=== PATIENT | female | born 1940 | race Caucasian/White ===

== ENCOUNTER 2016-06-10 17:08 | Inpatient (IN) | payer MEDICARE ==
[2016-06-10 18:16] LABS: ABSOLUTE EOSINOPHILS # (AUTO) 0.1 10^3/uL (0.0-0.6); ABSOLUTE LYMPHOCYTES (AUTO) 0.9 10^3/uL (0.5-4.7); ABSOLUTE MONOCYTES (AUTO) 0.8 10^3/uL (0.1-1.4); ABSOLUTE NEUT (AUTO) 15.5 10^3/uL (1.7-8.2); BASOPHILS % (AUTO) 0.2 % (0-2); EOSINOPHILS % (AUTO) 0.5 % (0-6); HEMATOCRIT 44.6 % (36.0-47.0); HEMOGLOBIN 14.5 g/dL (12.0-15.5); HGB HCT DIFFERENCE -1.1; LYMPHOCYTES % (AUTO) 5.3 % (13-45); MEAN CORPUSCULAR HEMOGLOBIN 26.6 pg (27.0-33.4); MEAN CORPUSCULAR HGB CONC 32.6 g/dL (32.0-36.0); MEAN CORPUSCULAR VOLUME 82 fl (80-97); MONOCYTES % (AUTO) 4.4 % (3-13); RED BLOOD COUNT 5.47 10^6/uL (3.72-5.28); RED CELL DISTRIBUTION WIDTH 16.1 % (11.5-14.0); SEGMENTED NEUTROPHILS % (AUTO) 89.6 % (42-78); WHITE BLOOD COUNT 17.3 10^3/uL (4.0-10.5)
[2016-06-10] MEDS ORDERED: NORMAL SALINE 1000 ML 1,000 ML IV ONE ×2 (18:17→19:44)
[2016-06-10 18:29] LABS: ADD ON TESTING BLD IN LAB ACKNOWLEDGE
[2016-06-10 18:37] LABS: ALANINE AMINOTRANSFERASE 58 U/L (9-52); ALBUMIN 3.7 g/dL (3.5-5.0); ALKALINE PHOSPHATASE 93 U/L (38-126); ANION GAP 13 (5-19); ASPARTATE AMINO TRANSFERASE 44 U/L (14-36); BLOOD UREA NITROGEN 44 mg/dL (7-20); CALCIUM 9.7 mg/dL (8.4-10.2); CARBON DIOXIDE 20 mmol/L (22-30); CHLORIDE 109 mmol/L (98-107); CREATININE RESULT 1.32 mg/dL (0.52-1.25); GLUCOSE 158 mg/dL (75-110); POTASSIUM 4.2 mmol/L (3.6-5.0); SODIUM 142.3 mmol/L (137-145); TOTAL PROTEIN 6.8 g/dL (6.3-8.2)
[2016-06-10 18:57] LABS: LIPASE 26.7 U/L (23-300)
[2016-06-10] MEDS ORDERED: ONDANSETRON HCL INJ/PF 4 MG/2 ML SDV IV ONE (19:44)
[2016-06-10] MEDS ORDERED: IPRATROPIUM/ALBUTEROL 0.5-2.5 MG/3 ML AMPUL NEB ONE (19:44)
[2016-06-10 22:13] LABS: APPEARANCE,URINE SLIGHTLY-CLOUDY; BILIRUBIN,URINE NEGATIVE (NEGATIVE); GLUCOSE, URINE NEGATIVE (NEGATIVE); KETONES,URINE NEGATIVE (NEGATIVE); LEUKOCYTE ESTERASE,URINE SMALL (NEGATIVE); NITRITE,URINE NEGATIVE (NEGATIVE); PROTEIN,URINE NEGATIVE (NEGATIVE); URINE SPECIFIC GRAVITY 1.029; UROBILINOGEN,URINE NEGATIVE mg/dL (<2.0)
[2016-06-10] MEDS ORDERED: METRONIDAZOLE 500 MG/NS RTU 100 ML IV ONE (23:29)
[2016-06-10] MEDS ORDERED: CEFTRIAXONE 1 GM/D5W RTU 50 ML IV ONE (23:33)
[2016-06-10] MEDS ORDERED: METHOCARBAMOL 500 MG TABLET PO PRN (23:33)
[2016-06-10] MEDS ORDERED: DEXTROSE 5%-NORMAL SALINE 1,000 ML IV ONE (23:34)
--- NOTE | 2016-06-10 23:34 | ER Document Report ---
ED General - General Chief Complaint: Nausea/Vomiting/Diarrhea Stated Complaint: NAUSEA/VOMITING Notes: Patient is a 76-year-old female past history of COPD, hypertension, who presents with 36 hours of persistent vomiting and diarrhea. Patient states that after getting home from visiting family in [place] where she ended up being hospitalized for 3 days for COPD exacerbation, she began having vomiting and diarrhea. She describes this as watery vomitus as well as watery diarrhea. States that she became so weak that she laid on her couch vomiting and soiling herself throughout the evening. States she was too weak to get up to call anybody. Her friend became concerned when the patient would not answer her phone today and eventually went to check on the patient. The patient was apparently able to crawl to the door to answer it and EMS was subsequently contacted. Patient states that she is normally functionally independent and able to take care of all her activities of daily living. At this point, she states she is too weak to even sit up in bed. Denies a history of similar symptoms in the past. States she was treated with antibiotics during her hospitalization well in [place]. She has not spoken her primary care physician regarding today's episode. Nothing improves or worsens or vomiting and diarrhea. TRAVEL OUTSIDE OF THE [place] IN LAST 30 DAYS: No - HPI Onset: Yesterday Onset/Duration: Gradual Quality of pain: Cramping Severity: Mild Pain Level: 2 Associated symptoms: Nausea, Vomiting Exacerbated by: Denies Relieved by: Denies Similar symptoms previously: No Recently seen / treated by doctor: No - Related Data Allergies/Adverse Reactions: ciprofloxacin [From Cipro] Allergy (Verified 06/10/16 18:25) Hives Past Medical History - General Information source: Patient - Social History Smoking Status: Former Smoker Frequency of alcohol use: None Drug Abuse: None Lives with: Alone Family History: Reviewed & Not Pertinent - Past Medical History Cardiac Medical History: Reports: Hx Hypercholesterolemia, Hx Heart Murmur Denies: Hx Heart Attack, Hx Hypertension Comment Only: Hx Congestive Heart Failure - She is being tested to see if she has this Pulmonary Medical History: Reports: Hx Asthma, Hx Bronchitis, Hx COPD, Hx Pneumonia Denies: Hx Tuberculosis Neurological Medical History: Denies: Hx Seizures Endocrine Medical History: Reports: Hx Diabetes Mellitus Type 2 - When necessary insulin for steroid induced hypoglycemia. GI Medical History: Reports: Hx Diverticulitis, Hx Gastroesophageal Reflux Disease, Hx Hiatal Hernia, Hx Irritable Bowel, Hx Ulcer Musculoskeltal Medical History: Reports Hx Arthritis Psychiatric Medical History: Denies: Hx Anxiety - Patient denies history of anxiety, Hx Depression Past Surgical History: Reports: Hx Abdominal Surgery - 3 ex-laops with lysis of adhesions for SBO, Hx Appendectomy, Hx Bowel Surgery, Hx Cholecystectomy, Hx Gynecologic Surgery - hysterectomy, Hx Hysterectomy, Hx Orthopedic Surgery - hand, Hx Tonsillectomy - Immunizations Hx Diphtheria, Pertussis, Tetanus Vaccination: Yes Hx Pneumococcal Vaccination: 06/08/08 Review of Systems - Review of Systems Notes: Constitutional: Negative for fever. HENT: Negative for sore throat. Eyes: Negative for visual changes. Cardiovascular: Negative for chest pain. Respiratory: Negative for shortness of breath. Gastrointestinal: Nausea for abdominal pain, vomiting and diarrhea Genitourinary: Negative for dysuria. Musculoskeletal: Negative for back pain. Skin: Negative for rash. Neurological: Negative for headaches, weakness or numbness. 10 point ROS negative except as marked above and in HPI. Physical Exam - Vital signs Vitals: Resp Pulse Ox 34 H 93 06/10/16 17:46 06/10/16 17:46 Interpretation: Tachycardic, Tachypneic Notes: PHYSICAL EXAMINATION: GENERAL: Mildly ill in appearance but in no acute distress. HEAD: Atraumatic, normocephalic. EYES: Pupils equal round and reactive to light, extraocular movements intact, sclera anicteric, conjunctiva are normal. ENT: nares patent, oropharynx clear without exudates. Dry mucous membranes. NECK: Normal range of motion, supple without lymphadenopathy LUNGS: Mild respiratory distress with a respiratory rate of 24. Expiratory wheezing bilaterally. HEART: Regular tachycardia without murmurs ABDOMEN: Soft, diffuse, mild tenderness without rebound or guarding., normoactive bowel sounds. No masses appreciated. EXTREMITIES: Normal range of motion, no pitting or edema. No cyanosis. NEUROLOGICAL: No focal neurological deficits. Moves all extremities spontaneously and on command. PSYCH: Normal mood, normal affect. SKIN: Warm, Dry, normal turgor, no rashes or lesions noted. Course - Re-evaluation Re-evalutation: 06/11/16 03:27 Patient presents tachycardic, soft pressures, and ill in appearance likely secondary to severe dehydration the setting of persistent vomiting and diarrhea. Patient was also noted to continue to have signs and symptoms consistent with a COPD exacerbation although she is ready been treated with a course of steroids and antibiotics. Her abdominal exam did show diffuse tenderness and given her history of multiple prior abdominal surgeries including abdominal strictures and bowel obstructions, CT abdomen and pelvis was obtained which did not show any acute pathology. Her laboratories demonstrate a leukocytosis but otherwise unremarkable. C. difficile pending. Patient remained weak and ill in appearance despite infusion 2 L of normal saline. Given her overall poor clinical assessment, I believe she needs to be admitted to the hospital for IV antibiotics, IV fluids, and clinical monitoring until she symptomatically improves. This case was discussed with Dr. Merrill who has accepted for admission. - Vital Signs Vital signs: Temp Pulse Resp BP Pulse Ox 20 98/58 L 95 06/11/16 00:00 06/10/16 20:01 06/11/16 00:00 - Laboratory Result Diagrams: 06/10/16 18:05 06/10/16 18:05 Laboratory results interpreted by me: 06/10/16 06/10/16 06/10/16 18:05 18:05 21:59 WBC 17.3 H RBC 5.47 H MCH 26.6 L RDW 16.1 H Seg Neutrophils % 89.6 H Lymphocytes % 5.3 L Absolute Neutrophils 15.5 H Chloride 109 H Carbon Dioxide 20 L BUN 44 H Creatinine 1.32 H Est GFR ( Amer) 47 L Est GFR (Non-Af Amer) 39 L Glucose 158 H AST 44 H ALT 58 H Creatine Kinase Urine Blood SMALL H Ur Leukocyte Esterase SMALL H 06/11/16 00:03 WBC RBC MCH RDW Seg Neutrophils % Lymphocytes % Absolute Neutrophils Chloride Carbon Dioxide BUN Creatinine Est GFR ( Amer) Est GFR (Non-Af Amer) Glucose AST ALT Creatine Kinase 332 H Urine Blood Ur Leukocyte Esterase - Diagnostic Test Radiology reviewed: Image reviewed, Reports reviewed Radiology results interpreted by me: 06/11/16 03:26 Chest x-ray: No acute infiltrate. - EKG Interpretation by Me Additional EKG results interpreted by me: 06/11/16 03:26 Sinus tachycardia. Rate [address] elevations or depressions. QTC 450 Discharge - Discharge Clinical Impression: Vomiting and diarrhea, Dehydration Acute and chronic respiratory failure ([id number]) Qualifiers: Respiratory failure complication: hypoxia Qualified Code(s): J96.21 - Acute and chronic respiratory failure with hypoxia Condition: Fair Disposition: ADMITTED INPATIENT Admitting Provider: Daren [facility] Admitted: Telemetry
[2016-06-10] MEDS ORDERED: ONDANSETRON HCL INJ/PF 4 MG/2 ML SDV IV PRN (23:37)
[2016-06-10] MEDS ORDERED: ACETAMINOPHEN 325 MG TABLET PO PRN (23:37)
[2016-06-10] MEDS ORDERED: MAG HYDROX/AL HYDROX/SIMETH SUSP 30 ML UDCUP PO PRN (23:37)
[2016-06-10] MEDS ORDERED: DEXTROSE 50%-WATER 25 GM/50 ML DISP.SYRIN IV PRN ×2 (23:42)
[2016-06-10] MEDS ORDERED: GLUCAGON,HUMAN RECOMB 1 MG INJ IM PRN (23:42)
[2016-06-10] MEDS ORDERED: DEXTROSE 40% GEL 15 GM TUBE PO PRN ×2 (23:42)
[2016-06-10] MEDS ORDERED: FLUTICASONE/SALMETEROL DISKUS 500-50 MCG/DOSE IH SCH (23:45)
[2016-06-10] MEDS ORDERED: NORMAL SALINE 1000 ML 1,000 ML IV SCH (23:45)
[2016-06-11 00:43] LABS: CREATINE KINASE MB 4.51 ng/mL (<4.55); TROPONIN I 0.013 ng/mL
--- NOTE | 2016-06-11 04:55 | PDOC H&P ---
History of Present Illness Admission Date/PCP: 06/10/16 23:37 MELINA ARMIJO Patient complains of: Nausea vomiting diarrhea History of Present Illness: BRIE MERCADO is a 76 year old female with a past medical history of diabetes and steroid dependent COPD [place] [facility] for COPD exacerbation 5 days ago developing abdominal pain nausea vomiting diarrhea over the last 4 hours. Patient is recently been on unknown antibiotics, denying chest pain or shortness of breath, in the emergency room she has a workup concerning for significant leukocytosis of 17,000 and prerenal azotemia. She started on Flagyl and concerned for C. difficile colitis referred to the hospitalist for admission. Severely debilitated and unable to ambulate or tolerate by mouth meds Past Medical History Cardiac Medical History: Reports: Hyperlipidema, Heart Murmur Denies: Myocardial Infarction, Hypertension Comment Only: Congestive Heart Failure - She is being tested to see if she has this Pulmonary Medical History: Reports: Asthma, Bronchitis, Chronic Obstructive Pulmonary Disease (COPD), Pneumonia Denies: Tuberculosis Neurological Medical History: Denies: Seizures Endocrine Medical History: Reports: Diabetes Mellitus Type 2 - When necessary insulin for steroid induced hypoglycemia. GI Medical History: Reports: Diverticulitis, Gastroesophageal Reflux Disease, Hiatal Hernia Musculoskeltal Medical History: Reports: Arthritis Psychiatric Medical History: Denies: Depression Hematology: Reports: Anemia Past Surgical History Past Surgical History: Reports: Appendectomy, Cholecystectomy, Hysterectomy, Orthopedic Surgery - hand, Tonsillectomy Social History Information Source: Patient Lives with: Alone Smoking Status: Former Smoker Frequency of Alcohol Use: None Hx Recreational Drug Use: No Drugs: None Hx Prescription Drug Abuse: No - Advance Directive Resuscitation Status: Full Code Family History Family History: COPD Parental Family History Reviewed: Yes Children Family History Reviewed: Yes Sibling(s) Family History Reviewed.: Yes Medication/Allergy Home Medications: Esomeprazole Magnesium [Nexium] 40 mg PO DAILY 04/07/12 Insulin Lispro [Humalog Insulin (Lispro) 100 unit/mL] 0 unit SUBCUT ACHSP PRN # 1 unit 04/03/13 Fluticasone/Salmeterol [Advair 500-50 Diskus 14 Dose/Diskus] 1 inh IH Q12H 04/10 Multivits-Min/Iron/FA/Lutein [Centrum Silver Women Tablet] 1 each PO DAILY 07/27 Albuterol Sulfate [Proair HFA] 1 - 2 puff IH QID PRN 09/14/14 Montelukast Sodium 10 mg PO DAILY 09/14/14 Simvastatin 40 mg PO QHS 09/14/14 Fluticasone Propionate [Flonase Nasal [place] 50 Mcg/[place] 16 gm] 1 spray NASL Q12 #1 spray.pump 09/16/14 Cyclosporine 0.05% Oph Emulsio [Restasis 0.05% Oph Emulsion Pf 0.4 ml] 1 drop OU DAILY 11/12/15 Prednisone [Deltasone 20 mg Tablet] 20 mg PO DAILY 11/20/15 Hydrocodone Bit/Acetaminophen [Hydrocodon-Acetaminophen 5-325] 1 each PO ASDIR PRN #10 tablet 11/27/15 Methocarbamol [Robaxin 500 Mg Tablet] 500 mg PO QID PRN #60 tablet 11/27/15 Allergies/Adverse Reactions: ciprofloxacin [From Cipro] Allergy (Verified 06/10/16 18:25) Hives Physical Exam Vital Signs: Temp Pulse Resp BP Pulse Ox 98.1 F 20 98/58 L 95 06/11/16 03:26 06/11/16 00:00 06/10/16 20:01 06/11/16 00:00 General appearance: PRESENT: cooperative, mild distress Head exam: PRESENT: atraumatic, normocephalic Eye exam: PRESENT: conjunctiva pink, EOMI, PERRLA. ABSENT: scleral icterus Ear exam: PRESENT: normal external ear exam Mouth exam: PRESENT: moist, tongue midline Neck exam: ABSENT: carotid bruit, JVD, lymphadenopathy, thyromegaly Respiratory exam: PRESENT: decreased breath sounds, prolonged expiratory phas. ABSENT: chest wall tenderness, crackles, rales, retraction, rhonchi, stridor, tachypnea Cardiovascular exam: PRESENT: RRR. ABSENT: diastolic murmur, rubs, systolic murmur Pulses: PRESENT: normal dorsalis pedis pul Vascular exam: PRESENT: normal capillary refill GI/Abdominal exam: PRESENT: distended, hyperactive bowel sounds, soft. ABSENT: firm, guarding, hernia, rigid Rectal exam: PRESENT: deferred Extremities exam: PRESENT: full ROM. ABSENT: calf tenderness, clubbing, pedal edema Neurological exam: PRESENT: alert, awake, oriented to person, oriented to place , oriented to time, oriented to situation, CN II-XII grossly intact. ABSENT: motor sensory deficit Psychiatric exam: PRESENT: appropriate affect, normal mood. ABSENT: homicidal ideation, suicidal ideation Skin exam: PRESENT: dry, intact, warm. ABSENT: cyanosis, rash Results Laboratory Results: 06/11/16 06/11/16 00:03 00:03 Creatine Kinase 332 H CK-MB (CK-2) 4.51 Troponin I 0.013 Impressions: Abdomen/Pelvis CT 06/10/16 19:44 IMPRESSION: NO SIGNIFICANT OR ACUTE FINDING IN THE ABDOMEN OR PELVIS ON CT SCAN WITH IV CONTRAST. Chest X-Ray 06/10/16 19:45 IMPRESSION: NO ACUTE RADIOGRAPHIC FINDING IN THE CHEST. Assessment & Plan - Diagnosis (1) Colitis Is this a current diagnosis for this admission?: YesPlan: Given recent admission with antibiotics for COPD exacerbation no significant concerned for C. difficile colitis given the rapid onset and marketed leukocytosis she started on Flagyl I will transition to vancomycin orally with symptomatic management and IV fluid challenge pending C. difficile tox screen and repeat CBC (2) Diabetes mellitus type 1 Is this a current diagnosis for this admission?: YesPlan: Insulin sliding scale every 6 hours (3) Chronic obstructive pulmonary disease (COPD) Is this a current diagnosis for this admission?: YesPlan: Albuterol Atrovent and incentive spirometry - Time Time Spent: 30 to 50 Minutes
[2016-06-11] MEDS: IPRATROPIUM/ALBUTEROL 0.5-2.5 MG/3 ML AMPUL NEB SCH ×4 (05:16→19:39)
[2016-06-11] MEDS: INSULIN LISPRO 100 UNIT/ML 3 ML VIAL SUBCUT PRN (05:21)
[2016-06-11] MEDS: VANCOMYCIN HCL INJ 500 MG VIAL PO SCH ×3 (06:23→18:06)
[2016-06-11] MEDS: LANSOPRAZOLE 30 MG TAB.RAP.DR PO SCH (06:24)
[2016-06-11] MEDS: HEPARIN SOD (PORCINE) 5,000 UNIT/ML 1 ML SYRINGE SUBCUT SCH ×3 (06:25→21:37)
[2016-06-11 07:22] LABS: ABSOLUTE EOSINOPHILS # (AUTO) 0.1 10^3/uL (0.0-0.6); ABSOLUTE MONOCYTES (AUTO) 0.6 10^3/uL (0.1-1.4); ABSOLUTE NEUT (AUTO) 6.8 10^3/uL (1.7-8.2); BASOPHILS % (AUTO) 0.1 % (0-2); HEMATOCRIT 32.2 % (36.0-47.0); HEMOGLOBIN 10.7 g/dL (12.0-15.5); HGB HCT DIFFERENCE -0.1; LYMPHOCYTES % (AUTO) 11.3 % (13-45); MEAN CORPUSCULAR HEMOGLOBIN 27.1 pg (27.0-33.4); MEAN CORPUSCULAR HGB CONC 33.2 g/dL (32.0-36.0); MEAN CORPUSCULAR VOLUME 82 fl (80-97); MONOCYTES % (AUTO) 7.2 % (3-13); RED BLOOD COUNT 3.93 10^6/uL (3.72-5.28); RED CELL DISTRIBUTION WIDTH 16.1 % (11.5-14.0); SEGMENTED NEUTROPHILS % (AUTO) 80.4 % (42-78); WHITE BLOOD COUNT 8.5 10^3/uL (4.0-10.5)
[2016-06-11 07:33] LABS: ANION GAP 10 (5-19); CALCIUM 8.2 mg/dL (8.4-10.2); CARBON DIOXIDE 18 mmol/L (22-30); CHLORIDE 112 mmol/L (98-107); CREATINE KINASE 342 U/L (30-135); CREATININE RESULT 0.86 mg/dL (0.52-1.25); GLUCOSE 112 mg/dL (75-110); POTASSIUM 3.5 mmol/L (3.6-5.0); SODIUM 140.4 mmol/L (137-145)
[2016-06-11 07:45] LABS: CREATINE KINASE MB 5.18 ng/mL (<4.55); TROPONIN I 0.012 ng/mL
[2016-06-11 08:05] LABS: BLOOD UREA NITROGEN 23 mg/dL (7-20)
[2016-06-11] MEDS: FLUTICASONE/SALMETEROL DISKUS 500-50 MCG/DOSE IH SCH ×2 (08:34→18:06)
[2016-06-11] MEDS ORDERED: MONTELUKAST SODIUM 10 MG TABLET PO SCH (10:00)
[2016-06-11] MEDS ORDERED: (PENDING PHARMACY ID) (Multivits-Min/Iron/Fa/Lutein [Centrum Silver Women Tablet] 1 EACH) PO SCH (10:00)
[2016-06-11] MEDS ORDERED: PREDNISONE 20 MG TABLET PO PRN (11:30)
[2016-06-11] MEDS ORDERED: TRAMADOL HCL 50 MG TABLET PO PRN (11:30)
[2016-06-11] MEDS ORDERED: POTASSIUM CHLORIDE 10 MEQ TABLET.SA PO ONE (11:30)
[2016-06-11] MEDS: FLUTICASONE NASAL SPRAY 50 MCG/SPRY 120 SPRAY/16 GM NASL SCH ×2 (11:50→21:36)
[2016-06-11] MEDS: DOCUSATE SODIUM 100 MG CAPSULE PO SCH ×2 (11:51→18:07)
[2016-06-11] MEDS: PREDNISONE 20 MG TABLET PO SCH (11:51)
[2016-06-11] MEDS: MULTIVITAMIN TABLET PO SCH (11:52)
[2016-06-11] MEDS: CYCLOSPORINE 0.05% OPH EMULSIO 0.4 ML DROPERETTE OU SCH (11:55)
[2016-06-11] MEDS ORDERED: BUDESONIDE/FORMOTEROL 160-4.5 MCG 60 PUFF/6 GM MDI IH ONE (13:00)
[2016-06-11 14:08] LABS: TROPONIN I < 0.012 ng/mL
[2016-06-11] MEDS ORDERED: (PENDING PHARMACY ID) (Rosuvastatin Calcium [Crestor 20 Mg Tablet] 20 MG) PO SCH (16:00)
--- NOTE | 2016-06-11 16:05 | EKG REPORT ---
SEVERITY:- ABNORMAL ECG - SINUS TACHYCARDIA LEFT ANTERIOR FASCICULAR BLOCK LVH WITH SECONDARY REPOLARIZATION ABNORMALITY : Confirmed by: Sandra Martino 11-Jun-2016 16:03:55
[2016-06-11] MEDS: ATORVASTATIN CALCIUM 10 MG TABLET PO SCH ×2 (16:34→21:37)
--- NOTE | 2016-06-11 16:40 | PDOC PROGRESS REPORT ---
Subjective Progress Note for:: 06/11/16 Subjective:: Patient seen on morning rounds. She is presently still in the ED waiting for a bed on telemetry. She denies any shortness of breath, chest pain or dyspnea. She continues to have productive cough. She denies any nausea, vomiting or abdominal pain at the present time. She did have one episode of diarrhea earlier. Otherwise review of systems are all negative Physical Exam Vital Signs: Temp Pulse Resp BP Pulse Ox 98.5 F 88 24 H 110/63 94 06/11/16 16:33 06/11/16 14:27 06/11/16 16:01 06/11/16 16:00 06/11/16 16:01 Intake & Output 06/10/16 06/11/16 06/12/16 06:59 06:59 06:59 Weight 65.771 kg General appearance: PRESENT: no acute distress, well-developed, well-nourished Head exam: PRESENT: atraumatic, normocephalic Eye exam: PRESENT: conjunctiva pink, EOMI, PERRLA. ABSENT: scleral icterus Ear exam: PRESENT: normal external ear exam Mouth exam: PRESENT: moist, tongue midline Neck exam: ABSENT: carotid bruit, JVD, lymphadenopathy, thyromegaly Respiratory exam: PRESENT: decreased breath sounds, rhonchi, symmetrical, unlabored Cardiovascular exam: PRESENT: bradycardia Pulses: PRESENT: normal dorsalis pedis pul Vascular exam: PRESENT: normal capillary refill GI/Abdominal exam: PRESENT: normal bowel sounds, soft. ABSENT: distended, guarding, mass, organolmegaly, rebound, tenderness Rectal exam: PRESENT: deferred Extremities exam: PRESENT: full ROM. ABSENT: calf tenderness, clubbing, pedal edema Neurological exam: PRESENT: alert, awake, oriented to person, oriented to place , oriented to time, oriented to situation, CN II-XII grossly intact. ABSENT: motor sensory deficit Psychiatric exam: PRESENT: appropriate affect, normal mood. ABSENT: homicidal ideation, suicidal ideation Skin exam: PRESENT: dry, intact, warm. ABSENT: cyanosis, rash Results Laboratory Results: 06/11/16 06:58 06/11/16 06:58 06/11/16 06/11/16 06:58 06:58 WBC 8.5 RBC 3.93 Hgb 10.7 L D Hct 32.2 L MCV 82 MCH 27.1 MCHC 33.2 RDW 16.1 H Plt Count 157 Seg Neutrophils % 80.4 H Lymphocytes % 11.3 L Monocytes % 7.2 Eosinophils % 1.0 Basophils % 0.1 Absolute Neutrophils 6.8 Absolute Lymphocytes 1.0 Absolute Monocytes 0.6 Absolute Eosinophils 0.1 Absolute Basophils 0.0 Sodium 140.4 Potassium 3.5 L Chloride 112 H Carbon Dioxide 18 L Anion Gap 10 BUN 23 H D Creatinine 0.86 Est GFR ( Amer) > 60 Est GFR (Non-Af Amer) > 60 Glucose 112 H Calcium 8.2 L 06/11/16 06/11/16 06/11/16 00:03 00:03 06:58 Creatine Kinase 332 H 342 H CK-MB (CK-2) 4.51 Troponin I 0.013 06/11/16 06/11/16 06/11/16 06:58 13:07 13:07 Creatine Kinase 809 H CK-MB (CK-2) 5.18 H 10.50 H Troponin I 0.012 < 0.012 Impressions: Abdomen/Pelvis CT 06/10/16 19:44 IMPRESSION: NO SIGNIFICANT OR ACUTE FINDING IN THE ABDOMEN OR PELVIS ON CT SCAN WITH IV CONTRAST. Chest X-Ray 06/10/16 19:45 IMPRESSION: NO ACUTE RADIOGRAPHIC FINDING IN THE CHEST. Assessment & Plan - Diagnosis (1) Dehydration Is this a current diagnosis for this admission?: YesPlan: Patient is being hydrated with IV fluid (2) Vomiting and diarrhea Is this a current diagnosis for this admission?: YesPlan: No further episodes of vomiting or diarrhea (3) Chronic obstructive pulmonary disease (COPD) Qualifiers: Emphysema type: unspecified Is this a current diagnosis for this admission?: YesPlan: Continue nebulizer treatments and steroids (4) Diabetes mellitus type 1 Is this a current diagnosis for this admission?: YesPlan: Continue current medications and sliding scale coverage - Time Time Spent with patient: 25-34 minutes Critical Time spent with patient: 15-24 minutes Medications reviewed and adjusted accordingly: Yes Anticipated discharge: Home
[2016-06-11] MEDS ORDERED: FAMOTIDINE PO SCH (18:00)
[2016-06-11] MEDS: MONTELUKAST SODIUM 10 MG TABLET PO SCH (18:07)
[2016-06-11] MEDS: BUDESONIDE/FORMOTEROL 160-4.5 MCG 60 PUFF/6 GM MDI IH SCH (21:36)
[2016-06-11] MEDS: ATORVASTATIN CALCIUM 40 MG TABLET PO SCH (21:37)
[2016-06-12] MEDS ORDERED: VANCOMYCIN HCL INJ 500 MG VIAL ONE ×2 (00:43→02:11)
[2016-06-12] MEDS: VANCOMYCIN HCL INJ 500 MG VIAL PO SCH ×2 (01:09→05:30)
[2016-06-12] MEDS: IPRATROPIUM/ALBUTEROL 0.5-2.5 MG/3 ML AMPUL NEB SCH ×4 (02:16→20:30)
[2016-06-12] MEDS: LANSOPRAZOLE 30 MG TAB.RAP.DR PO SCH (05:30)
[2016-06-12] MEDS: FLUTICASONE/SALMETEROL DISKUS 500-50 MCG/DOSE IH SCH ×2 (05:30→17:20)
[2016-06-12] MEDS: HEPARIN SOD (PORCINE) 5,000 UNIT/ML 1 ML SYRINGE SUBCUT SCH ×3 (05:30→22:24)
[2016-06-12] MEDS: BENZONATATE 100 MG CAPSULE PO PRN (05:30)
[2016-06-12 05:36] LABS: ABSOLUTE EOSINOPHILS # (AUTO) 0.1 10^3/uL (0.0-0.6); ABSOLUTE LYMPHOCYTES (AUTO) 1.1 10^3/uL (0.5-4.7); ABSOLUTE MONOCYTES (AUTO) 0.7 10^3/uL (0.1-1.4); ABSOLUTE NEUT (AUTO) 6.3 10^3/uL (1.7-8.2); BASOPHILS % (AUTO) 0.2 % (0-2); HEMATOCRIT 30.9 % (36.0-47.0); HEMOGLOBIN 10.2 g/dL (12.0-15.5); HGB HCT DIFFERENCE -0.3; LYMPHOCYTES % (AUTO) 13.2 % (13-45); MEAN CORPUSCULAR HEMOGLOBIN 27.1 pg (27.0-33.4); MEAN CORPUSCULAR HGB CONC 33.1 g/dL (32.0-36.0); MEAN CORPUSCULAR VOLUME 82 fl (80-97); MONOCYTES % (AUTO) 8.3 % (3-13); RED BLOOD COUNT 3.78 10^6/uL (3.72-5.28); RED CELL DISTRIBUTION WIDTH 15.7 % (11.5-14.0); SEGMENTED NEUTROPHILS % (AUTO) 77.3 % (42-78); WHITE BLOOD COUNT 8.2 10^3/uL (4.0-10.5)
[2016-06-12 05:52] LABS: ANION GAP 7 (5-19); BLOOD UREA NITROGEN 8 mg/dL (7-20); CALCIUM 9.6 mg/dL (8.4-10.2); CARBON DIOXIDE 21 mmol/L (22-30); CHLORIDE 109 mmol/L (98-107); CREATININE RESULT 0.75 mg/dL (0.52-1.25); GLUCOSE 97 mg/dL (75-110); POTASSIUM 4.3 mmol/L (3.6-5.0); SODIUM 137.2 mmol/L (137-145)
[2016-06-12] MEDS: ASPIRIN 81 MG TABLET, CHEWABLE PO SCH (10:41)
[2016-06-12] MEDS: PREDNISONE 20 MG TABLET PO SCH (10:41)
[2016-06-12] MEDS: MULTIVITAMIN TABLET PO SCH (10:42)
[2016-06-12] MEDS: FLUTICASONE NASAL SPRAY 50 MCG/SPRY 120 SPRAY/16 GM NASL SCH ×2 (10:42→22:23)
[2016-06-12] MEDS: BUDESONIDE/FORMOTEROL 160-4.5 MCG 60 PUFF/6 GM MDI IH SCH ×2 (10:42→22:23)
--- NOTE | 2016-06-12 11:54 | PDOC PROGRESS REPORT ---
Subjective Progress Note for:: 06/12/16 Subjective:: Patient seen on morning rounds. She is presently resting in bed. She had clear liquids for breakfast without any nausea or vomiting. She denies any shortness of breath, chest pain or dyspnea. She continues to have productive cough. She denies any nausea, vomiting or abdominal pain at the present time. No further diarrhea. C diff was negative. Otherwise review of systems are all negative Physical Exam Vital Signs: Temp Pulse Resp BP Pulse Ox 98.0 F 89 16 110/51 L 97 06/12/16 00:18 06/12/16 08:45 06/12/16 08:45 06/12/16 04:57 06/12/16 08:45 Intake & Output 06/11/16 06/12/16 06/13/16 06:59 06:59 06:59 Intake Total 200 Balance 200 Weight 65 kg General appearance: PRESENT: no acute distress, well-developed, well-nourished Head exam: PRESENT: atraumatic, normocephalic Eye exam: PRESENT: conjunctiva pink, EOMI, PERRLA. ABSENT: scleral icterus Ear exam: PRESENT: normal external ear exam Mouth exam: PRESENT: moist, tongue midline Neck exam: ABSENT: carotid bruit, JVD, lymphadenopathy, thyromegaly Respiratory exam: PRESENT: clear to auscultation valerie. ABSENT: rales, rhonchi, wheezes Cardiovascular exam: PRESENT: RRR. ABSENT: diastolic murmur, rubs, systolic murmur Pulses: PRESENT: normal dorsalis pedis pul Vascular exam: PRESENT: normal capillary refill GI/Abdominal exam: PRESENT: normal bowel sounds, soft. ABSENT: distended, guarding, mass, organolmegaly, rebound, tenderness Rectal exam: PRESENT: deferred Extremities exam: PRESENT: full ROM. ABSENT: calf tenderness, clubbing, pedal edema Neurological exam: PRESENT: alert, awake, oriented to person, oriented to place , oriented to time, oriented to situation, CN II-XII grossly intact. ABSENT: motor sensory deficit Psychiatric exam: PRESENT: appropriate affect, normal mood. ABSENT: homicidal ideation, suicidal ideation Skin exam: PRESENT: dry, intact, warm. ABSENT: cyanosis, rash Results Laboratory Results: 06/12/16 05:19 06/12/16 05:19 06/12/16 06/12/16 05:19 05:19 WBC 8.2 RBC 3.78 Hgb 10.2 L Hct 30.9 L MCV 82 MCH 27.1 MCHC 33.1 RDW 15.7 H Plt Count 148 L Seg Neutrophils % 77.3 Lymphocytes % 13.2 Monocytes % 8.3 Eosinophils % 1.0 Basophils % 0.2 Absolute Neutrophils 6.3 Absolute Lymphocytes 1.1 Absolute Monocytes 0.7 Absolute Eosinophils 0.1 Absolute Basophils 0.0 Sodium 137.2 Potassium 4.3 Chloride 109 H Carbon Dioxide 21 L Anion Gap 7 BUN 8 Creatinine 0.75 Est GFR ( Amer) > 60 Est GFR (Non-Af Amer) > 60 Glucose 97 Calcium 9.6 06/11/16 06/11/16 06/11/16 00:03 00:03 06:58 Creatine Kinase 332 H 342 H CK-MB (CK-2) 4.51 Troponin I 0.013 06/11/16 06/11/16 06/11/16 06:58 13:07 13:07 Creatine Kinase 809 H CK-MB (CK-2) 5.18 H 10.50 H Troponin I 0.012 < 0.012 Impressions: Abdomen/Pelvis CT 06/10/16 19:44 IMPRESSION: NO SIGNIFICANT OR ACUTE FINDING IN THE ABDOMEN OR PELVIS ON CT SCAN WITH IV CONTRAST. Chest X-Ray 06/10/16 19:45 IMPRESSION: NO ACUTE RADIOGRAPHIC FINDING IN THE CHEST. Assessment & Plan - Diagnosis (1) Dehydration Is this a current diagnosis for this admission?: YesPlan: Patient is being hydrated with IV fluid. Now tolerating liquids will d/c IV fluids (2) Vomiting and diarrhea Is this a current diagnosis for this admission?: YesPlan: No further episodes of vomiting or diarrhea. Will advance diet (3) Chronic obstructive pulmonary disease (COPD) Qualifiers: Emphysema type: unspecified Is this a current diagnosis for this admission?: YesPlan: Continue nebulizer treatments and steroids (4) Diabetes mellitus type 1 Qualifiers: Diabetes mellitus complication status: without complication Qualified Code(s): E10.9 - Type 1 diabetes mellitus without complications Is this a current diagnosis for this admission?: YesPlan: Continue current medications and sliding scale coverage - Time Time Spent with patient: 25-34 minutes Critical Time spent with patient: 15-24 minutes Medications reviewed and adjusted accordingly: Yes Anticipated discharge: Home with Homehealth
[2016-06-12] MEDS: CYCLOSPORINE 0.05% OPH EMULSIO 0.4 ML DROPERETTE OU SCH (15:11)
[2016-06-12] MEDS: MONTELUKAST SODIUM 10 MG TABLET PO SCH (17:20)
[2016-06-12] MEDS: ATORVASTATIN CALCIUM 40 MG TABLET PO SCH (22:23)
[2016-06-13] MEDS: IPRATROPIUM/ALBUTEROL 0.5-2.5 MG/3 ML AMPUL NEB SCH ×4 (02:22→19:49)
[2016-06-13] MEDS: HEPARIN SOD (PORCINE) 5,000 UNIT/ML 1 ML SYRINGE SUBCUT SCH ×3 (05:21→22:50)
[2016-06-13] MEDS: FLUTICASONE/SALMETEROL DISKUS 500-50 MCG/DOSE IH SCH ×2 (05:24→17:12)
[2016-06-13] MEDS: LANSOPRAZOLE 30 MG TAB.RAP.DR PO SCH (05:24)
[2016-06-13] MEDS: BENZONATATE 100 MG CAPSULE PO PRN (05:25)
[2016-06-13 06:41] LABS: ABSOLUTE EOSINOPHILS # (AUTO) 0.1 10^3/uL (0.0-0.6); ABSOLUTE LYMPHOCYTES (AUTO) 1.4 10^3/uL (0.5-4.7); ABSOLUTE MONOCYTES (AUTO) 0.5 10^3/uL (0.1-1.4); ABSOLUTE NEUT (AUTO) 6.5 10^3/uL (1.7-8.2); BASOPHILS % (AUTO) 0.2 % (0-2); EOSINOPHILS % (AUTO) 1.3 % (0-6); HEMATOCRIT 31.1 % (36.0-47.0); HEMOGLOBIN 10.3 g/dL (12.0-15.5); HGB HCT DIFFERENCE -0.2; LYMPHOCYTES % (AUTO) 16.5 % (13-45); MEAN CORPUSCULAR HEMOGLOBIN 27.3 pg (27.0-33.4); MEAN CORPUSCULAR HGB CONC 33.3 g/dL (32.0-36.0); MEAN CORPUSCULAR VOLUME 82 fl (80-97); MONOCYTES % (AUTO) 5.9 % (3-13); RED BLOOD COUNT 3.79 10^6/uL (3.72-5.28); RED CELL DISTRIBUTION WIDTH 15.6 % (11.5-14.0); SEGMENTED NEUTROPHILS % (AUTO) 76.1 % (42-78); WHITE BLOOD COUNT 8.5 10^3/uL (4.0-10.5)
[2016-06-13 07:05] LABS: ANION GAP 9 (5-19); BLOOD UREA NITROGEN 11 mg/dL (7-20); CALCIUM 9.6 mg/dL (8.4-10.2); CARBON DIOXIDE 22 mmol/L (22-30); CHLORIDE 106 mmol/L (98-107); CREATININE RESULT 0.81 mg/dL (0.52-1.25); GLUCOSE 90 mg/dL (75-110); POTASSIUM 3.9 mmol/L (3.6-5.0); SODIUM 137.4 mmol/L (137-145)
[2016-06-13] MEDS: ASPIRIN 81 MG TABLET, CHEWABLE PO SCH (09:50)
[2016-06-13] MEDS: MULTIVITAMIN TABLET PO SCH (09:50)
[2016-06-13] MEDS: PREDNISONE 20 MG TABLET PO SCH (09:50)
[2016-06-13] MEDS: BUDESONIDE/FORMOTEROL 160-4.5 MCG 60 PUFF/6 GM MDI IH SCH ×2 (09:50→22:51)
[2016-06-13] MEDS: FLUTICASONE NASAL SPRAY 50 MCG/SPRY 120 SPRAY/16 GM NASL SCH ×2 (09:50→22:51)
[2016-06-13] MEDS: FAMOTIDINE 20 MG TABLET PO SCH ×2 (10:30→22:50)
[2016-06-13] MEDS: LOPERAMIDE HCL 2 MG CAPSULE PO PRN ×2 (10:30→23:00)
--- NOTE | 2016-06-13 14:33 | PDOC PROGRESS REPORT ---
Subjective Progress Note for:: 06/13/16 Subjective:: Patient seen on morning rounds. She is presently resting in bed. She had clear liquids for breakfast without any nausea or vomiting. She denies any shortness of breath, chest pain or dyspnea. She continues to have productive cough. She denies any nausea, vomiting or abdominal pain at the present time. No further diarrhea. C diff was negative. Otherwise review of systems are all negative Physical Exam Vital Signs: Temp Pulse Resp BP Pulse Ox 98.4 F 94 20 122/97 H 99 06/13/16 11:32 06/13/16 11:32 06/13/16 11:32 06/13/16 11:32 06/13/16 11:32 Intake & Output 06/12/16 06/13/16 06/14/16 06:59 06:59 06:59 Intake Total 200 563 Output Total 1600 Balance 200 -1037 Weight 65 kg 66.3 kg General appearance: PRESENT: no acute distress, well-developed, well-nourished Head exam: PRESENT: atraumatic, normocephalic Eye exam: PRESENT: conjunctiva pink, EOMI, PERRLA. ABSENT: scleral icterus Ear exam: PRESENT: normal external ear exam Mouth exam: PRESENT: moist, tongue midline Neck exam: ABSENT: carotid bruit, JVD, lymphadenopathy, thyromegaly Respiratory exam: PRESENT: decreased breath sounds, symmetrical, wheezes. ABSENT: rales, rhonchi Cardiovascular exam: PRESENT: RRR. ABSENT: diastolic murmur, rubs, systolic murmur Pulses: PRESENT: normal dorsalis pedis pul GI/Abdominal exam: PRESENT: normal bowel sounds, soft. ABSENT: distended, guarding, mass, organolmegaly, rebound, tenderness Rectal exam: PRESENT: deferred Extremities exam: PRESENT: full ROM. ABSENT: calf tenderness, clubbing, pedal edema Neurological exam: PRESENT: alert, awake, oriented to person, oriented to place , oriented to time, oriented to situation, CN II-XII grossly intact. ABSENT: motor sensory deficit Psychiatric exam: PRESENT: appropriate affect, normal mood. ABSENT: homicidal ideation, suicidal ideation Skin exam: PRESENT: dry, intact, warm. ABSENT: cyanosis, rash Results Laboratory Results: 06/13/16 05:41 06/13/16 05:41 06/13/16 06/13/16 05:41 05:41 WBC 8.5 RBC 3.79 Hgb 10.3 L Hct 31.1 L MCV 82 MCH 27.3 MCHC 33.3 RDW 15.6 H Plt Count 165 Seg Neutrophils % 76.1 Lymphocytes % 16.5 Monocytes % 5.9 Eosinophils % 1.3 Basophils % 0.2 Absolute Neutrophils 6.5 Absolute Lymphocytes 1.4 Absolute Monocytes 0.5 Absolute Eosinophils 0.1 Absolute Basophils 0.0 Sodium 137.4 Potassium 3.9 Chloride 106 Carbon Dioxide 22 Anion Gap 9 BUN 11 Creatinine 0.81 Est GFR ( Amer) > 60 Est GFR (Non-Af Amer) > 60 Glucose 90 Calcium 9.6 06/12/16 11:45 Nasophary ([facility] Only) MRSA Surveillance Culture - Final MRSA RECOVERED 06/11/16 06/11/16 06/11/16 00:03 00:03 06:58 Creatine Kinase 332 H 342 H CK-MB (CK-2) 4.51 Troponin I 0.013 06/11/16 06/11/16 06/11/16 06:58 13:07 13:07 Creatine Kinase 809 H CK-MB (CK-2) 5.18 H 10.50 H Troponin I 0.012 < 0.012 Impressions: Abdomen/Pelvis CT 06/10/16 19:44 IMPRESSION: NO SIGNIFICANT OR ACUTE FINDING IN THE ABDOMEN OR PELVIS ON CT SCAN WITH IV CONTRAST. Chest X-Ray 06/10/16 19:45 IMPRESSION: NO ACUTE RADIOGRAPHIC FINDING IN THE CHEST. Assessment & Plan - Diagnosis (1) Dehydration Is this a current diagnosis for this admission?: YesPlan: Patient is being hydrated with IV fluid. Now tolerating liquids will d/c IV fluids (2) Vomiting and diarrhea Is this a current diagnosis for this admission?: YesPlan: No further episodes of vomiting or diarrhea. Will advance diet (3) Chronic obstructive pulmonary disease (COPD) Qualifiers: Emphysema type: unspecified Is this a current diagnosis for this admission?: YesPlan: Continue nebulizer treatments and steroids (4) Diabetes mellitus type 1 Qualifiers: Diabetes mellitus complication status: without complication Qualified Code(s): E10.9 - Type 1 diabetes mellitus without complications Is this a current diagnosis for this admission?: YesPlan: Continue current medications and sliding scale coverage - Time Time Spent with patient: 25-34 minutes Critical Time spent with patient: 25-34 minutes Medications reviewed and adjusted accordingly: Yes
[2016-06-13] MEDS: INSULIN LISPRO 100 UNIT/ML 3 ML VIAL SUBCUT PRN ×2 (17:12→22:50)
[2016-06-13] MEDS: CYCLOSPORINE 0.05% OPH EMULSIO 0.4 ML DROPERETTE OU SCH (17:12)
[2016-06-13] MEDS: MONTELUKAST SODIUM 10 MG TABLET PO SCH (17:13)
[2016-06-13] MEDS: ATORVASTATIN CALCIUM 40 MG TABLET PO SCH (22:50)
[2016-06-14] MEDS: IPRATROPIUM/ALBUTEROL 0.5-2.5 MG/3 ML AMPUL NEB SCH ×4 (02:13→20:38)
[2016-06-14 05:40] LABS: ABSOLUTE BASOPHILS # (AUTO) 0.1 10^3/uL (0.0-0.2); ABSOLUTE EOSINOPHILS # (AUTO) 0.1 10^3/uL (0.0-0.6); ABSOLUTE LYMPHOCYTES (AUTO) 1.5 10^3/uL (0.5-4.7); ABSOLUTE MONOCYTES (AUTO) 0.6 10^3/uL (0.1-1.4); ABSOLUTE NEUT (AUTO) 7.1 10^3/uL (1.7-8.2); BASOPHILS % (AUTO) 0.6 % (0-2); EOSINOPHILS % (AUTO) 1.2 % (0-6); HEMATOCRIT 34.1 % (36.0-47.0); HGB HCT DIFFERENCE -1.1; LYMPHOCYTES % (AUTO) 16.1 % (13-45); MEAN CORPUSCULAR HEMOGLOBIN 26.8 pg (27.0-33.4); MEAN CORPUSCULAR HGB CONC 32.4 g/dL (32.0-36.0); MEAN CORPUSCULAR VOLUME 83 fl (80-97); MONOCYTES % (AUTO) 6.3 % (3-13); RED BLOOD COUNT 4.12 10^6/uL (3.72-5.28); RED CELL DISTRIBUTION WIDTH 15.3 % (11.5-14.0); SEGMENTED NEUTROPHILS % (AUTO) 75.8 % (42-78); WHITE BLOOD COUNT 9.4 10^3/uL (4.0-10.5)
[2016-06-14 05:55] LABS: ANION GAP 11 (5-19); BLOOD UREA NITROGEN 13 mg/dL (7-20); CALCIUM 10.1 mg/dL (8.4-10.2); CARBON DIOXIDE 21 mmol/L (22-30); CHLORIDE 106 mmol/L (98-107); CREATININE RESULT 0.83 mg/dL (0.52-1.25); GLUCOSE 98 mg/dL (75-110); POTASSIUM 4.1 mmol/L (3.6-5.0); SODIUM 138.2 mmol/L (137-145)
[2016-06-14] MEDS: HEPARIN SOD (PORCINE) 5,000 UNIT/ML 1 ML SYRINGE SUBCUT SCH ×3 (06:40→22:37)
[2016-06-14] MEDS: LANSOPRAZOLE 30 MG TAB.RAP.DR PO SCH (06:49)
[2016-06-14] MEDS: FLUTICASONE/SALMETEROL DISKUS 500-50 MCG/DOSE IH SCH ×2 (06:49→17:32)
[2016-06-14] MEDS: PREDNISONE 20 MG TABLET PO SCH (10:18)
[2016-06-14] MEDS: BUDESONIDE/FORMOTEROL 160-4.5 MCG 60 PUFF/6 GM MDI IH SCH ×2 (10:18→22:37)
[2016-06-14] MEDS: TIOTROPIUM BROMIDE DPI 5 CAP/KIT (18 MCG/CAP) IH SCH (10:18)
[2016-06-14] MEDS: MULTIVITAMIN TABLET PO SCH (10:18)
[2016-06-14] MEDS: ASPIRIN 81 MG TABLET, CHEWABLE PO SCH (10:18)
[2016-06-14] MEDS: FLUTICASONE NASAL SPRAY 50 MCG/SPRY 120 SPRAY/16 GM NASL SCH ×2 (10:18→22:37)
[2016-06-14] MEDS: FAMOTIDINE 20 MG TABLET PO SCH ×2 (10:18→22:37)
[2016-06-14] MEDS: CYCLOSPORINE 0.05% OPH EMULSIO 0.4 ML DROPERETTE OU SCH (10:18)
[2016-06-14] MEDS: MONTELUKAST SODIUM 10 MG TABLET PO SCH (17:32)
[2016-06-14] MEDS: LOPERAMIDE HCL 2 MG CAPSULE PO PRN (20:33)
[2016-06-14] MEDS: BENZONATATE 100 MG CAPSULE PO PRN (22:36)
[2016-06-14] MEDS: ATORVASTATIN CALCIUM 40 MG TABLET PO SCH (22:37)
[2016-06-15] MEDS: IPRATROPIUM/ALBUTEROL 0.5-2.5 MG/3 ML AMPUL NEB SCH ×4 (01:45→19:28)
[2016-06-15] MEDS: HEPARIN SOD (PORCINE) 5,000 UNIT/ML 1 ML SYRINGE SUBCUT SCH ×3 (05:31→22:43)
[2016-06-15] MEDS: FLUTICASONE/SALMETEROL DISKUS 500-50 MCG/DOSE IH SCH ×2 (05:31→16:57)
[2016-06-15] MEDS: LANSOPRAZOLE 30 MG TAB.RAP.DR PO SCH (05:31)
[2016-06-15] MEDS: BUDESONIDE/FORMOTEROL 160-4.5 MCG 60 PUFF/6 GM MDI IH SCH ×2 (10:03→22:43)
[2016-06-15] MEDS: FLUTICASONE NASAL SPRAY 50 MCG/SPRY 120 SPRAY/16 GM NASL SCH ×2 (10:03→22:43)
[2016-06-15] MEDS: CYCLOSPORINE 0.05% OPH EMULSIO 0.4 ML DROPERETTE OU SCH (10:04)
[2016-06-15] MEDS: MULTIVITAMIN TABLET PO SCH (10:04)
[2016-06-15] MEDS: FAMOTIDINE 20 MG TABLET PO SCH ×2 (10:04→22:43)
[2016-06-15] MEDS: ASPIRIN 81 MG TABLET, CHEWABLE PO SCH (10:04)
[2016-06-15] MEDS: PREDNISONE 20 MG TABLET PO SCH (10:04)
[2016-06-15] MEDS: TIOTROPIUM BROMIDE DPI 5 CAP/KIT (18 MCG/CAP) IH SCH (10:07)
[2016-06-15] MEDS: LOPERAMIDE HCL 2 MG CAPSULE PO PRN (14:41)
--- NOTE | 2016-06-15 16:43 | PDOC PROGRESS REPORT ---
Subjective Progress Note for:: 06/14/16 Subjective:: Patient seen on morning rounds. She is presently resting in bed. She is tolerating a regular diet. She denies any shortness of breath, chest pain or dyspnea. She continues to have productive cough. She denies any nausea, vomiting or abdominal pain at the present time. No further diarrhea. C diff was negative. Otherwise review of systems are all negative Physical Exam Vital Signs: Temp Pulse Resp BP Pulse Ox 97.6 F 88 20 123/58 L 99 06/15/16 11:03 06/15/16 14:37 06/15/16 14:37 06/15/16 11:03 06/15/16 14:37 Intake & Output 06/14/16 06/15/16 06/16/16 06:59 06:59 06:59 Intake Total 1960 2180 Output Total 2300 2400 Balance -340 -220 Weight 65.5 kg 66.5 kg General appearance: PRESENT: no acute distress, well-developed, well-nourished Head exam: PRESENT: atraumatic Eye exam: PRESENT: conjunctiva pink, EOMI, PERRLA. ABSENT: scleral icterus Ear exam: PRESENT: normal external ear exam Mouth exam: PRESENT: moist, tongue midline Neck exam: ABSENT: carotid bruit, JVD, lymphadenopathy, thyromegaly Respiratory exam: PRESENT: rhonchi, symmetrical, unlabored. ABSENT: rales, wheezes Cardiovascular exam: PRESENT: RRR. ABSENT: diastolic murmur, rubs, systolic murmur Pulses: PRESENT: normal dorsalis pedis pul Vascular exam: PRESENT: normal capillary refill GI/Abdominal exam: PRESENT: normal bowel sounds, soft, other - large incisional hernia. ABSENT: distended, guarding, mass, organolmegaly, rebound, tenderness Rectal exam: PRESENT: deferred Extremities exam: PRESENT: full ROM. ABSENT: calf tenderness, clubbing, pedal edema Neurological exam: PRESENT: alert, awake, oriented to person, oriented to place , oriented to time, oriented to situation, CN II-XII grossly intact. ABSENT: motor sensory deficit Psychiatric exam: PRESENT: appropriate affect, normal mood. ABSENT: homicidal ideation, suicidal ideation Skin exam: PRESENT: dry, intact, warm. ABSENT: cyanosis, rash Results Laboratory Results: 06/14/16 05:06 06/14/16 05:06 06/11/16 06/11/16 06/11/16 00:03 00:03 06:58 Creatine Kinase 332 H 342 H CK-MB (CK-2) 4.51 Troponin I 0.013 06/11/16 06/11/16 06/11/16 06:58 13:07 13:07 Creatine Kinase 809 H CK-MB (CK-2) 5.18 H 10.50 H Troponin I 0.012 < 0.012 Impressions: Abdomen/Pelvis CT 06/10/16 19:44 IMPRESSION: NO SIGNIFICANT OR ACUTE FINDING IN THE ABDOMEN OR PELVIS ON CT SCAN WITH IV CONTRAST. Chest X-Ray 06/10/16 19:45 IMPRESSION: NO ACUTE RADIOGRAPHIC FINDING IN THE CHEST. Assessment & Plan - Diagnosis (1) Dehydration Is this a current diagnosis for this admission?: YesPlan: Patient is being hydrated with IV fluid. Now tolerating liquids will d/c IV fluids (2) Vomiting and diarrhea Is this a current diagnosis for this admission?: YesPlan: No further episodes of vomiting or diarrhea. Will advance diet (3) Chronic obstructive pulmonary disease (COPD) Qualifiers: Emphysema type: unspecified Is this a current diagnosis for this admission?: YesPlan: Continue nebulizer treatments and steroids (4) Diabetes mellitus type 1 Qualifiers: Diabetes mellitus complication status: without complication Qualified Code(s): E10.9 - Type 1 diabetes mellitus without complications Is this a current diagnosis for this admission?: YesPlan: Continue current medications and sliding scale coverage - Time Time Spent with patient: 25-34 minutes Critical Time spent with patient: 15-24 minutes Medications reviewed and adjusted accordingly: Yes Anticipated discharge: Home with Homehealth
[2016-06-15] MEDS: INSULIN LISPRO 100 UNIT/ML 3 ML VIAL SUBCUT PRN (16:52)
[2016-06-15] MEDS: MONTELUKAST SODIUM 10 MG TABLET PO SCH (16:56)
--- NOTE | 2016-06-15 16:59 | PDOC PROGRESS REPORT ---
Subjective Progress Note for:: 06/15/16 Subjective:: Patient seen on morning rounds. She is presently resting in bed. She is tolerating a regular diet. She denies any shortness of breath, chest pain or dyspnea. She continues to have productive cough. She denies any nausea, vomiting or abdominal pain at the present time. No further diarrhea. C diff was negative. Otherwise review of systems are all negative Physical Exam Vital Signs: Temp Pulse Resp BP Pulse Ox 98.6 F 94 20 112/50 L 98 06/15/16 16:40 06/15/16 16:40 06/15/16 16:40 06/15/16 16:40 06/15/16 16:40 Intake & Output 06/14/16 06/15/16 06/16/16 06:59 06:59 06:59 Intake Total 1960 2180 Output Total 2300 2400 Balance -340 -220 Weight 65.5 kg 66.5 kg General appearance: PRESENT: no acute distress, well-developed, well-nourished Head exam: PRESENT: atraumatic, normocephalic Eye exam: PRESENT: conjunctiva pink, EOMI, PERRLA. ABSENT: scleral icterus Ear exam: PRESENT: normal external ear exam Mouth exam: PRESENT: moist, tongue midline Neck exam: ABSENT: carotid bruit, JVD, lymphadenopathy, thyromegaly Respiratory exam: PRESENT: decreased breath sounds, symmetrical, unlabored Cardiovascular exam: PRESENT: RRR. ABSENT: diastolic murmur, rubs, systolic murmur Pulses: PRESENT: normal dorsalis pedis pul Vascular exam: PRESENT: normal capillary refill GI/Abdominal exam: PRESENT: normal bowel sounds, soft, other - abdominal distension. ABSENT: distended, guarding, mass, organolmegaly, rebound, tenderness Rectal exam: PRESENT: deferred Extremities exam: PRESENT: full ROM. ABSENT: calf tenderness, clubbing, pedal edema Neurological exam: PRESENT: alert, awake, oriented to person, oriented to place , oriented to time, oriented to situation, CN II-XII grossly intact. ABSENT: motor sensory deficit Psychiatric exam: PRESENT: appropriate affect, normal mood. ABSENT: homicidal ideation, suicidal ideation Skin exam: PRESENT: dry, intact, warm. ABSENT: cyanosis, rash Results Laboratory Results: 06/14/16 05:06 06/14/16 05:06 06/11/16 06/11/16 06/11/16 00:03 00:03 06:58 Creatine Kinase 332 H 342 H CK-MB (CK-2) 4.51 Troponin I 0.013 06/11/16 06/11/16 06/11/16 06:58 13:07 13:07 Creatine Kinase 809 H CK-MB (CK-2) 5.18 H 10.50 H Troponin I 0.012 < 0.012 Impressions: Abdomen/Pelvis CT 06/10/16 19:44 IMPRESSION: NO SIGNIFICANT OR ACUTE FINDING IN THE ABDOMEN OR PELVIS ON CT SCAN WITH IV CONTRAST. Chest X-Ray 06/10/16 19:45 IMPRESSION: NO ACUTE RADIOGRAPHIC FINDING IN THE CHEST. Assessment & Plan - Diagnosis (1) Dehydration Is this a current diagnosis for this admission?: YesPlan: Patient is being hydrated with IV fluid. Now tolerating liquids will d/c IV fluids (2) Vomiting and diarrhea Is this a current diagnosis for this admission?: YesPlan: No further episodes of vomiting or diarrhea. Will advance diet (3) Chronic obstructive pulmonary disease (COPD) Qualifiers: Emphysema type: unspecified Is this a current diagnosis for this admission?: YesPlan: Continue nebulizer treatments and steroids (4) Diabetes mellitus type 1 Qualifiers: Diabetes mellitus complication status: without complication Qualified Code(s): E10.9 - Type 1 diabetes mellitus without complications Is this a current diagnosis for this admission?: Yes - Time Time Spent with patient: 25-34 minutes Critical Time spent with patient: 15-24 minutes Medications reviewed and adjusted accordingly: Yes
[2016-06-15] MEDS: ATORVASTATIN CALCIUM 40 MG TABLET PO SCH (22:43)
[2016-06-16] MEDS: IPRATROPIUM/ALBUTEROL 0.5-2.5 MG/3 ML AMPUL NEB SCH ×2 (01:20→07:58)
[2016-06-16] MEDS: HEPARIN SOD (PORCINE) 5,000 UNIT/ML 1 ML SYRINGE SUBCUT SCH (07:09)
[2016-06-16] MEDS: FLUTICASONE/SALMETEROL DISKUS 500-50 MCG/DOSE IH SCH (07:11)
[2016-06-16] MEDS: LANSOPRAZOLE 30 MG TAB.RAP.DR PO SCH (07:12)
[2016-06-16 09:32] VITALS: BP 101/51
[2016-06-16] MEDS: PREDNISONE 20 MG TABLET PO SCH (09:55)
[2016-06-16] MEDS: MULTIVITAMIN TABLET PO SCH (09:56)
[2016-06-16] MEDS: FLUTICASONE NASAL SPRAY 50 MCG/SPRY 120 SPRAY/16 GM NASL SCH (09:58)
[2016-06-16] MEDS: FAMOTIDINE 20 MG TABLET PO SCH (09:58)
[2016-06-16] MEDS: CYCLOSPORINE 0.05% OPH EMULSIO 0.4 ML DROPERETTE OU SCH (09:58)
[2016-06-16] MEDS: BUDESONIDE/FORMOTEROL 160-4.5 MCG 60 PUFF/6 GM MDI IH SCH (09:58)
[2016-06-16] MEDS: TIOTROPIUM BROMIDE DPI 5 CAP/KIT (18 MCG/CAP) IH SCH (09:58)
[2016-06-16] MEDS: ASPIRIN 81 MG TABLET, CHEWABLE PO SCH (09:58)
[2016-06-16] MEDS ORDERED: FLUCONAZOLE 100 MG TABLET PO SCH (10:00)
--- NOTE | 2016-06-16 11:17 | PDOC DISCHARGE SUMMARY ---
General - Admit/Disc Date/PCP Admission Date/Primary Care Provider: 06/10/16 23:37 MELINA ARMIJO Discharge Date: 06/16/16 - Discharge Diagnosis (1) Dehydration Is this a current diagnosis for this admission?: YesSummary: Patient was rehydrated with IV fluid after 2 days of vomiting and diarrhea at home. Recently discharged 3 days ago after hospitalization for acute exacerbation of COPD (2) Vomiting and diarrhea Is this a current diagnosis for this admission?: YesSummary: Resolved (3) Chronic obstructive pulmonary disease (COPD) Is this a current diagnosis for this admission?: YesSummary: Continue inhalers add Spiriva daily. Prednisone 10 mg daily x 3 days (4) Diabetes mellitus type 1 Is this a current diagnosis for this admission?: YesSummary: Continue current medicaitions (5) Oral candidiasis Is this a current diagnosis for this admission?: YesSummary: Patient has thrush and vaginal candidiasis from recent antibiotics from previous hospitalization. Will treat with Diflucan 150 mg daily x 5 days. - Additional Information Resuscitation Status: Full Code Discharge Diet: Diabetic Discharge Activity: Activity As Tolerated, Balance Activity w/Rest Home Medications: Albuterol Sulfate [Proair HFA] 1 - 2 puff IH Q4 PRN 06/11/16 Aspirin [Aspirin 81 mg Chewable Tablet] 81 mg PO DAILY 06/11/16 Atorvastatin Calcium 10 mg PO ACHS 06/11/16 Benzonatate 100 mg PO Q6 PRN 06/11/16 Budesonide/Formoterol Fumarate [Symbicort HFA 160-4.5 mcg Inhaler 6 gm] 2 puff IH BID 06/11/16 Famotidine 80 mg PO BID 06/11/16 Fluticasone/Salmeterol [Advair 500-50 Diskus 28 Dose] 1 puff IH BID 06/11/16 Melatonin/Pyridoxine HCl (B6) [Melatonin 5 mg Tablet] 5 mg PO ACHS PRN 06/11/16 Montelukast Sodium 10 mg PO QPM 06/11/16 Rosuvastatin Calcium [Crestor 20 mg Tablet] 20 mg PO ACHS 06/11/16 Tramadol HCl [Ultram 50 mg Tablet] 50 mg PO Q6 PRN 06/11/16 Acetaminophen [Tylenol 325 mg Tablet] 650 mg PO Q4HP PRN tablet 06/16/16 Cyclosporine 0.05% Oph Emulsio [Restasis 0.05% Oph Emulsion Pf 0.4 ml] 1 drop OU DAILY droperette 06/16/16 Fluconazole [Diflucan 100 mg Tablet] 150 mg PO DAILY #4 tablet 06/16/16 Fluticasone/Salmeterol [Advair 500-50 Diskus 14 Dose/Diskus] 1 inh IH Q12A inhaler 06/16/16 Loperamide HCl [Imodium 2 mg Capsule] 2 mg PO Q4HP PRN capsule 06/16/16 Methocarbamol [Robaxin 500 mg Tablet] 500 mg PO Q6HP PRN tablet 06/16/16 Multivitamin [Tab-A-Liss (Multiple Vitamin) Tablet] 1 tab PO DAILY tablet 06/16 Prednisone 10 mg PO DAILY #3 tablet 06/16/16 Tiotropium [place] [Spiriva Handihaler 5 Cap/Kit (18 Mcg/Cap)] 1 cap IH DAILY # 1 kit 06/16/16 History of Present Illness Patient complains of: Nausea, vomiting, diarrhea and profound weakness x 2 days History of Present Illness: BRIE MERCADO is a 76 year old female who presented to [facility]. She was found at home by family member on the couch incontinent of stool and too weak to stand. EMS was called and she was brought to the ED . She was found to have acute renal failure and leucocytosis. She had recent hospitalization for COPD exacerbation in [place] while visiting son over the [place] holidays. Hospital Course Hospital Course: She was referred to the hospitalist for admission. She was admitted to the telemetry floor. She was rehydrated with IV fluid, she was treated empirically for Cdiff.stool culture was sent which was negative for cdiff. Flagyl was stopped. She was given imodium for diarrhea.Diarhea slowly improved and is now resolved. She was short of breath and wheezing on admission. Nebulizer treatments and steroids were continued. Breathing has greatly improved and she is now no longer wheezing. She was noted to have oral thrush and vaginal candiasis. She was started on Diflucan one tablet daily for the next 5 days. She is ambulating without difficulty and feels ready for discharge. Physical Exam Vital Signs: Temp Pulse Resp BP Pulse Ox 97.0 F 80 16 101/51 L 98 06/16/16 10:31 06/16/16 10:31 06/16/16 10:31 06/16/16 10:31 06/16/16 10:31 Intake & Output 06/15/16 06/16/16 06/17/16 06:59 06:59 06:59 Intake Total 2180 1660 Output Total 2400 1950 Balance -220 -290 Weight 66.5 kg 65.5 kg General appearance: PRESENT: no acute distress Head exam: PRESENT: atraumatic, normocephalic Eye exam: PRESENT: conjunctiva pink, EOMI, PERRLA. ABSENT: scleral icterus Ear exam: PRESENT: normal external ear exam Mouth exam: PRESENT: moist, tongue midline Neck exam: ABSENT: carotid bruit, JVD, lymphadenopathy, thyromegaly Respiratory exam: PRESENT: decreased breath sounds, symmetrical, unlabored Cardiovascular exam: PRESENT: RRR. ABSENT: diastolic murmur, rubs, systolic murmur Pulses: PRESENT: normal dorsalis pedis pul Vascular exam: PRESENT: normal capillary refill GI/Abdominal exam: PRESENT: normal bowel sounds, soft, other - large incisional hernia Rectal exam: PRESENT: deferred Extremities exam: PRESENT: full ROM. ABSENT: calf tenderness, clubbing, pedal edema Neurological exam: PRESENT: alert, awake, oriented to person, oriented to place , oriented to time, oriented to situation, CN II-XII grossly intact. ABSENT: motor sensory deficit Psychiatric exam: PRESENT: appropriate affect, normal mood. ABSENT: homicidal ideation, suicidal ideation Results Laboratory Results: 06/14/16 05:06 06/14/16 05:06 06/11/16 06/11/16 06/11/16 00:03 00:03 06:58 Creatine Kinase 332 H 342 H CK-MB (CK-2) 4.51 Troponin I 0.013 06/11/16 06/11/16 06/11/16 06:58 13:07 13:07 Creatine Kinase 809 H CK-MB (CK-2) 5.18 H 10.50 H Troponin I 0.012 < 0.012 Impressions: Abdomen/Pelvis CT 06/10/16 19:44 IMPRESSION: NO SIGNIFICANT OR ACUTE FINDING IN THE ABDOMEN OR PELVIS ON CT SCAN WITH IV CONTRAST. Chest X-Ray 06/10/16 19:45 IMPRESSION: NO ACUTE RADIOGRAPHIC FINDING IN THE CHEST. Qualifiers PATEINT BEING DISCHARGED WITH ANY OF THE FOLLOWING DIAGNOSIS?: No Plan Discharge Plan: Home with family. Follow up with primary care provider in one week. Time Spent: Less than 30 Minutes
== END 2016-06-16 11:14 | disposition home or self-care (01) | DRG 641 ==
LOC: ER 17:08 → EH 23:37 → 4N 06-11 20:30
PROVIDERS: ADMIT Internal Medicine; ATTEND Internal Medicine
DX: E86.0 Dehydration (principal); B37.0 Candidal stomatitis; R11.10 Vomiting, unspecified; R19.7 Diarrhea, unspecified; B37.3 Candidiasis of vulva and vagina; J44.9 Chronic obstructive pulmonary disease, unspecified; I10 Essential (primary) hypertension; E78.00 Pure hypercholesterolemia, unspecified; E10.9 Type 1 diabetes mellitus without complications; D64.9 Anemia, unspecified; M19.90 Unspecified osteoarthritis, unspecified site; Z79.82 Long term (current) use of aspirin; Z79.52 Long term (current) use of systemic steroids; Z79.51 Long term (current) use of inhaled steroids; Z88.1 Allergy status to other antibiotic agents; Z87.891 Personal history of nicotine dependence
CPT/HCPCS: 36415; 71010; 74177; 80048; 80053; 81001; 82550; 82553; 82962; 83690; 83735; 84484; 85025; 87045; 87205; 87493; 93005; 93010; 94640; 96361; 96374; 99285; J0696; J1644; J1815; J2405; J3370; J3490; J7030; J7512; J7620

== ENCOUNTER 2016-06-18 22:57 | Inpatient (IN) | payer MEDICARE ==
[2016-06-18] MEDS ORDERED: MORPHINE SULFATE 10 MG/ML INJ IV PRN (23:29)
[2016-06-18] MEDS ORDERED: MORPHINE SULFATE 10 MG/ML INJ ONE (23:31)
--- NOTE | 2016-06-19 00:37 | ER Document Report ---
ED GI/ - General Chief Complaint: Abdominal Pain >50 Stated Complaint: ABDOMINAL PAIN Time seen by provider: 00:37 Mode of Arrival: Ambulatory Information source: Patient TRAVEL OUTSIDE OF THE [place] IN LAST 30 DAYS: No - HPI Patient complains to provider of: Abdominal pain, Vomiting Onset: This afternoon Timing/Duration: Sudden Quality of pain: Sharp, Stabbing Severity at maximum: Moderate Severity in ED: Moderate Pain Level: 5 Location: Other - Diffuse Associated symptoms: Nausea, Vomiting Exacerbated by: Denies Relieved by: Denies Similar symptoms previously: Yes Recently seen / treated by doctor: Yes - recently discharged from this facility for upper respiratory complaints Notes: 06/19/16 05:40 Patient is a 76-year-old female with multiple previous abdominal surgeries, presenting to the emergency room complaining of diffuse abdominal pain with vomiting and abdominal distention, symptoms started earlier in the day, she denies any fever, no urinary symptoms, states she did have a small bowel movement earlier in the day - Related Data Allergies/Adverse Reactions: ciprofloxacin [From Cipro] Allergy (Verified 06/19/16 05:36) Hives Home Medications: Current Home Medications Calcium Carbonate/Simethicone [[place] Heartburn+Gas] 1 tab PO ASDIR PRN [History] Sennosides 8.6 mg PO ASDIR PRN 06/19/16 [History] Past Medical History - General Information source: Patient - Social History Smoking Status: Unknown if Ever Smoked Family History: COPD Patient has suicidal ideation: No Patient has homicidal ideation: No - Past Medical History Cardiac Medical History: Reports: Hx Hypercholesterolemia, Hx Heart Murmur Denies: Hx Heart Attack, Hx Hypertension Comment Only: Hx Congestive Heart Failure - She is being tested to see if she has this Pulmonary Medical History: Reports: Hx Asthma, Hx Bronchitis, Hx COPD, Hx Pneumonia Denies: Hx Tuberculosis Neurological Medical History: Denies: Hx Seizures Endocrine Medical History: Reports: Hx Diabetes Mellitus Type 2 - When necessary insulin for steroid induced hypoglycemia. Renal/ Medical History: Denies: Hx Peritoneal Dialysis GI Medical History: Reports: Hx Diverticulitis, Hx Gastroesophageal Reflux Disease, Hx Hiatal Hernia, Hx Irritable Bowel, Hx Ulcer Musculoskeltal Medical History: Reports Hx Arthritis Psychiatric Medical History: Denies: Hx Anxiety - Patient denies history of anxiety, Hx Depression Past Surgical History: Reports: Hx Abdominal Surgery - 3 ex-laops with lysis of adhesions for SBO, Hx Appendectomy, Hx Bowel Surgery, Hx Cholecystectomy, Hx Gynecologic Surgery - hysterectomy, Hx Hysterectomy, Hx Orthopedic Surgery - hand, Hx Tonsillectomy - Immunizations Hx Diphtheria, Pertussis, Tetanus Vaccination: Yes Hx Pneumococcal Vaccination: 06/08/08 Review of Systems - Review of Systems Constitutional: No symptoms reported EENT: No symptoms reported Cardiovascular: No symptoms reported Respiratory: No symptoms reported Gastrointestinal: See HPI Genitourinary: No symptoms reported Female Genitourinary: No symptoms reported Musculoskeletal: No symptoms reported Skin: No symptoms reported Hematologic/Lymphatic: No symptoms reported Neurological/Psychological: No symptoms reported -: Yes All other systems reviewed and negative Physical Exam - Vital signs Vitals: Temp Pulse Resp BP Pulse Ox 98.5 F 79 24 H 147/61 H 98 06/18/16 23:05 06/18/16 23:05 06/18/16 23:05 06/18/16 23:05 06/18/16 23:05 Interpretation: Normal - General General appearance: Appears well, Alert - HEENT Head: Normocephalic, Atraumatic Eyes: Normal Pupils: PERRL - Respiratory Respiratory status: No respiratory distress Chest status: Nontender Breath sounds: Normal Chest palpation: Normal - Cardiovascular Rhythm: Regular Heart sounds: Normal auscultation Murmur: No - Abdominal Inspection: Normal, Other - Multiple surgical scars, bilateral lower abdominal ecchymosis with central puncture from previous injections Distension: Distended Bowel sounds: Normal Tenderness: Tender - Diffusely Organomegaly: No organomegaly - Back Back: Normal, Nontender - Extremities General upper extremity: Normal inspection, Nontender, Normal color, Normal ROM , Normal temperature General lower extremity: Normal inspection, Nontender, Normal color, Normal ROM , Normal temperature, Normal weight bearing. No: José's sign - Neurological Neuro grossly intact: Yes Cognition: Normal Orientation: AAOx4 [place] Coma Scale Eye Opening: Spontaneous [place] Coma Scale Verbal: Oriented Silvia Coma Scale Motor: Obeys Commands [place] Coma Scale Total: 15 Speech: Normal Motor strength normal: LUE, RUE, LLE, RLE Sensory: Normal - Psychological Associated symptoms: Normal affect, Normal mood - Skin Skin Temperature: Warm Skin Moisture: Dry Skin Color: Normal Course - Re-evaluation Re-evalutation: 06/19/16 04:01 Patient's lab and imaging as well as presentation and physical exam findings were discussed with the surgicalist, Dr Crane, who requests that patient be admitted to the medicine service and surgery will be on consult 06/19/16 04:12 Patient was discussed with the hospitalist, Dr. Kumar, who states that he has several critical patients he needs to evaluate at this point in time, a request that the emergency room continue managing patient until such time that he can accept the patient for admission, and less patient deteriorates and then he requests that the surgicalist assume care - Vital Signs Vital signs: Temp Pulse Resp BP Pulse Ox 98.5 F 74 16 127/59 H 97 06/18/16 23:05 06/19/16 02:32 06/19/16 02:32 06/19/16 02:32 06/19/16 02:32 - Laboratory Result Diagrams: 06/19/16 00:30 06/19/16 00:30 Laboratory results interpreted by me: 06/19/16 06/19/16 00:30 00:30 WBC 13.1 H RDW 15.4 H Absolute Neutrophils 10.1 H BUN 27 H Est GFR (Non-Af Amer) 53 L Calcium 11.0 H AST 37 H ALT 74 H Alkaline Phosphatase 127 H - Diagnostic Test Radiology reviewed: Image reviewed, Reports reviewed Discharge - Discharge Clinical Impression: Small bowel obstruction Condition: Stable Disposition: ADMITTED INPATIENT Admitting Provider: Hospitalist Unit Admitted: Medical Floor Referrals: MELINA ARMIJO DO [Primary Care Provider] - Follow up as needed
[2016-06-19 00:55] LABS: ABSOLUTE BASOPHILS # (AUTO) 0.1 10^3/uL (0.0-0.2); ABSOLUTE EOSINOPHILS # (AUTO) 0.1 10^3/uL (0.0-0.6); ABSOLUTE LYMPHOCYTES (AUTO) 2.1 10^3/uL (0.5-4.7); ABSOLUTE MONOCYTES (AUTO) 0.7 10^3/uL (0.1-1.4); ABSOLUTE NEUT (AUTO) 10.1 10^3/uL (1.7-8.2); BASOPHILS % (AUTO) 0.5 % (0-2); EOSINOPHILS % (AUTO) 0.5 % (0-6); HEMATOCRIT 38.1 % (36.0-47.0); HEMOGLOBIN 12.8 g/dL (12.0-15.5); HGB HCT DIFFERENCE 0.3; MEAN CORPUSCULAR HEMOGLOBIN 27.4 pg (27.0-33.4); MEAN CORPUSCULAR HGB CONC 33.7 g/dL (32.0-36.0); MEAN CORPUSCULAR VOLUME 81 fl (80-97); MONOCYTES % (AUTO) 5.7 % (3-13); RED CELL DISTRIBUTION WIDTH 15.4 % (11.5-14.0); SEGMENTED NEUTROPHILS % (AUTO) 77.3 % (42-78); WHITE BLOOD COUNT 13.1 10^3/uL (4.0-10.5)
[2016-06-19 01:05] LABS: ALANINE AMINOTRANSFERASE 74 U/L (9-52); ALBUMIN 3.9 g/dL (3.5-5.0); ALKALINE PHOSPHATASE 127 U/L (38-126); ANION GAP 12 (5-19); ASPARTATE AMINO TRANSFERASE 37 U/L (14-36); BILIRUBIN,TOTAL 0.7 mg/dL (0.2-1.3); BLOOD UREA NITROGEN 27 mg/dL (7-20); CARBON DIOXIDE 24 mmol/L (22-30); CHLORIDE 103 mmol/L (98-107); CREATININE RESULT 1.01 mg/dL (0.52-1.25); GLUCOSE 107 mg/dL (75-110); LIPASE 237.8 U/L (23-300); SODIUM 138.8 mmol/L (137-145); TOTAL PROTEIN 6.8 g/dL (6.3-8.2)
[2016-06-19] MEDS ORDERED: ONDANSETRON HCL INJ/PF 4 MG/2 ML SDV IV ONE ×2 (02:20→02:27)
[2016-06-19] MEDS ORDERED: ONDANSETRON HCL INJ/PF 4 MG/2 ML SDV ONE (02:22)
[2016-06-19] MEDS ORDERED: MORPHINE SULFATE 10 MG/ML INJ IV ONE (04:51)
[2016-06-19] MEDS ORDERED: ONDANSETRON HCL INJ/PF 4 MG/2 ML SDV IV PRN (06:22)
[2016-06-19] MEDS ORDERED: PHARMACY COMMUNICATION ORDER MC NR (06:30)
--- NOTE | 2016-06-19 07:35 | PDOC CONSULTATION ---
History of Present Illness Admission Date/PCP: 06/19/16 06:27 MELINA ARMIJO History of Present Illness: BRIE MERCADO is a 76 year old female with multiple previous abdominal surgeries. She reports that she was admitted to hospital in [facility] with bronchitis and pneumonia. She returned to the local area but was admitted to the hospital 2 days later for gastrointestinal issues/a bowel infection marked by nausea and vomiting and diarrhea. She was discharged 3 days ago on 06/16/2016. She did well at home for approximately 48 hours , but yesterday 06/18/2016 at 1730 she had the acute onset of sharp severe abdominal pain. Pain was 10/10. Around that time she had 2 small bowel movements. She presented to the emergency room with severe abdominal pain as her only symptom. However, once in the ED, she had nausea and large volume vomiting while drinking oral contrast. CT scan was done which revealed small bowel obstruction. Pain is currently 5/10. She reports her baseline abdomen is distended and tight. She's had 4 previous small bowel obstructions. She reports that she had a ruptured bladder when her son was born and then bladder cancer, and that her bowels have never been the same. She had a partial colectomy for polyps. She then went on to have 3 bowel obstructions which were treated with exploratory laparoscopy and lysis of adhesions. Her 2 most recent surgeries were in 2010. Then in 2012 she had another small bowel obstruction but that one was managed nonoperatively. Other abdominal surgeries include total abdominal hysterectomy , cholecystectomy, appendectomy. Review of systems is positive for scant blood in her stool 2 weeks ago, minor leg swelling, baseline shortness of breath, slightly worse with her pain and occasional vertigo/dizziness. All other systems were reviewed and are negative. Past Medical History Cardiac Medical History: Reports: Hyperlipidema, Heart Murmur, Other - She reports history of irregular rhythm, but denies being medicated for this. Denies: Myocardial Infarction, Hypertension Pulmonary Medical History: Reports: Asthma, Bronchitis, Chronic Obstructive Pulmonary Disease (COPD), Pneumonia Denies: Tuberculosis Neurological Medical History: Denies: Seizures Endocrine Medical History: Reports: Diabetes Mellitus Type 2 - When necessary insulin for steroid induced hypoglycemia. Renal/ Medical History: Reports: Other - History of UTIs Malignancy Medical History: Reports: Other - Bladder cancer GI Medical History: Reports: Diverticulitis, Gastroesophageal Reflux Disease, Hiatal Hernia, Other - History of colon resection, GB, Appy, SBOs c ex-laps, KEN /BSO. Musculoskeltal Medical History: Reports: Arthritis Psychiatric Medical History: Reports: Depression - Some appropriate transient depression after her son 2 years ago. Hematology: Reports: Anemia Past Surgical History Past Surgical History: Reports: Appendectomy, Cholecystectomy, Hysterectomy, Orthopedic Surgery - Right hand, Tonsillectomy, Other - Partial colectomy, Exploratory laparoscopy with lysis of adhesions 3 Social History Information Source: Patient Lives with: Alone Smoking Status: Never Smoker Frequency of Alcohol Use: None Hx Recreational Drug Use: No Drugs: None Hx Prescription Drug Abuse: No Family History Family History: CAD, COPD, Hyperlipidemia, Malignancy - 10 siblings, multiple cancers. "Female" cancer, stomach cancer, breast cancer, bladder cancer, prostate cancer, non-Hodgkin's lymphoma, lung cancer, leukemia. Parental Family History Reviewed: Yes Children Family History Reviewed: Yes Sibling(s) Family History Reviewed.: Yes Medication/Allergy Home Medications: Albuterol Sulfate [Proair HFA] 1 - 2 puff IH Q4 PRN 06/11/16 Aspirin [Aspirin 81 mg Chewable Tablet] 81 mg PO DAILY 06/11/16 Atorvastatin Calcium 10 mg PO QHS 06/11/16 Benzonatate 100 mg PO Q6 PRN 06/11/16 Budesonide/Formoterol Fumarate [Symbicort HFA 160-4.5 mcg Inhaler 6 gm] 2 puff IH BID 06/11/16 Famotidine 40 mg PO BID 06/11/16 Melatonin/Pyridoxine HCl (B6) [Melatonin 5 mg Tablet] 5 mg PO ACHS PRN 06/11/16 Montelukast Sodium 10 mg PO QPM 06/11/16 Rosuvastatin Calcium [Crestor 20 mg Tablet] 20 mg PO ACHS 06/11/16 Tramadol HCl [Ultram 50 mg Tablet] 50 mg PO Q6 PRN 06/11/16 Cyclosporine 0.05% Oph Emulsio [Restasis 0.05% Oph Emulsion Pf 0.4 ml] 1 drop OU DAILY droperette 06/16/16 Fluconazole [Diflucan 100 mg Tablet] 150 mg PO DAILY #4 tablet 06/16/16 Fluticasone/Salmeterol [Advair 500-50 Diskus 14 Dose/Diskus] 1 inh IH Q12A inhaler 06/16/16 Prednisone 10 mg PO DAILY #3 tablet 06/16/16 Calcium Carbonate/Simethicone [[place] Heartburn+Gas] 1 tab PO ASDIR PRN Sennosides 8.6 mg PO ASDIR PRN 06/19/16 Allergies/Adverse Reactions: ciprofloxacin [From Cipro] Allergy (Verified 06/19/16 05:36) Hives Review of Systems All systems: reviewed and no additional remarkable complaints except as stated Physical Exam Vital Signs: Temp Pulse Resp BP Pulse Ox 97.5 F 75 16 119/58 L 95 06/19/16 05:00 06/19/16 05:00 06/19/16 05:00 06/19/16 05:00 06/19/16 05:00 General appearance: PRESENT: no acute distress Head exam: PRESENT: normocephalic Eye exam: PRESENT: EOMI Mouth exam: PRESENT: moist, tongue midline Teeth exam: PRESENT: other - Upper dentures Neck exam: ABSENT: JVD, lymphadenopathy, tenderness, thyromegaly Respiratory exam: PRESENT: crackles, wheezes GI/Abdominal exam: PRESENT: distended - Patient reports at baseline her abdomen is distended and firm; however, she is slightly more distended than normal., firm, tenderness. ABSENT: guarding, hernia - No groin hernia. Patient reports an incisional hernia but I did not detect., rebound, rigid Extremities exam: PRESENT: +1 edema - Minimal edema bilateral lower extremities. ABSENT: tenderness Musculoskeletal exam: ABSENT: deformity Neurological exam: PRESENT: alert, oriented to person, oriented to place, oriented to time, oriented to situation. ABSENT: motor sensory deficit Psychiatric exam: PRESENT: appropriate affect, normal mood Skin exam: PRESENT: other - Multiple well-healed abdominal incisions.. ABSENT: jaundice, rash Results Laboratory Results: Notable lab results: WBC 13. BUN 27. AST/ALT/alkaline phosphatase all very slightly elevated. Otherwise labs generally normal. Impressions: Abdomen/Pelvis CT 06/19/16 00:36 IMPRESSION: Focal marked dilatation of mid abdominal small bowel loops with no proximal distal dilatation. Strongly suggest a closed loop obstruction. No findings to suggest a volvulus. Status: Image reviewed by me Assessment & Plan - Diagnosis (1) Small bowel obstruction Is this a current diagnosis for this admission?: YesPlan: Just recently discharged Thursday from 2 consecutive hospitalizations: in [place] while on vacation over [place] and then 2 days later back here at [place]. Multiple comorbidities including asthma/COPD/recent history of pneumonia/ bronchitis, UTIs, diabetes mellitus, hyperlipidemia, GERD, history of diverticulitis, hiatal hernia, arthritis, etc. Medicine will admit and we will be consulting for small bowel obstruction. 4 previous small bowel obstructions. Although the last one was in 2012 and resolved nonoperatively, she previously had 3 exploratory laparoscopy's with lysis of adhesions. Attempt nonoperative management. Nothing by mouth, NG tube to low intermittent suction, IV fluids, SCDs, incentive spirometry, ambulate, Protonix, Lovenox, Zofran. (2) Chronic obstructive pulmonary disease (COPD) Qualifiers: Emphysema type: unspecified Is this a current diagnosis for this admission?: YesPlan: Just recently discharged Thursday from 2 consecutive hospitalizations: in [place] while on vacation over [place] and then 2 days later back here at [place]. Multiple comorbidities including asthma/COPD/recent history of pneumonia/ bronchitis, UTIs, diabetes mellitus, hyperlipidemia, GERD, history of diverticulitis, hiatal hernia, arthritis, etc. Medicine will admit and we will be consulting for small bowel obstruction.
[2016-06-19] MEDS: ENOXAPARIN SODIUM INJ 40 MG/0.4 ML DISP.SYRIN SUBCUT SCH (08:26)
[2016-06-19] MEDS ORDERED: INSULIN LISPRO 100 UNIT/ML 3 ML VIAL SUBCUT PRN (08:33)
[2016-06-19] MEDS ORDERED: GLUCAGON,HUMAN RECOMB 1 MG INJ IM PRN (08:33)
[2016-06-19] MEDS ORDERED: DEXTROSE 40% GEL 15 GM TUBE PO PRN ×2 (08:33)
[2016-06-19] MEDS ORDERED: DEXTROSE 50%-WATER 25 GM/50 ML DISP.SYRIN IV PRN ×2 (08:33)
[2016-06-19] MEDS ORDERED: IPRATROPIUM/ALBUTEROL 0.5-2.5 MG/3 ML AMPUL NEB PRN (08:35)
[2016-06-19 08:38] LABS: APPEARANCE,URINE CLEAR; BILIRUBIN,URINE NEGATIVE (NEGATIVE); GLUCOSE, URINE NEGATIVE (NEGATIVE); KETONES,URINE NEGATIVE (NEGATIVE); LEUKOCYTE ESTERASE,URINE NEGATIVE (NEGATIVE); NITRITE,URINE NEGATIVE (NEGATIVE); PROTEIN,URINE NEGATIVE (NEGATIVE); UROBILINOGEN,URINE NEGATIVE mg/dL (<2.0)
[2016-06-19] MEDS ORDERED: ACETAMINOPHEN 650 MG SUPP.RECT PR PRN ×2 (08:39→08:50)
--- NOTE | 2016-06-19 08:58 | PDOC H&P ---
History of Present Illness Admission Date/PCP: 06/19/16 06:27 MELINA Cross Patient complains of: abd pain, n/v History of Present Illness: 76-year-old female, with non home O2 dependent COPD, though basically on daily steroids for the past 2 months due to recurrent pulmonary issues, and with a history of exploratory laparotomy 3 for small bowel obstruction, who presents to the emergency room for evaluation of above complaints. Patient has been discussed with emergency room physician who evaluated the patient. Noted the onset of cramping pressure-like mid abdominal pain, with associated bloating the morning of the . States this was the "worst pain ever." Similar milder episodes, in terms of pain, in the past, with 3 episodes treated by surgery, and at least one episode treated nonoperatively. Increased pain with certain movements, and sometimes simply on its own. No fever chills, diarrhea or dysuria. Small bowel movement earlier in the day on the . Does state that she's been passing small amounts of flatus since insertion of the NG tube, which has also decreased some of the bloating and cramping discomfort in her abdomen. Has already been seen by general surgery, who will follow closely in consultation. Hospitalized on our service the through the of this month with final diagnoses including dehydration, vomiting and diarrhea.. Admitted to our service November 11 of last year for chest tightness and COPD exacerbation. History and physical has been reviewed. Resting quietly, overall stating she does feel a bit better. Laboratory results are listed in [facility] and are reviewed. X-ray summary results are listed below, with full report(s) reviewed. . Social history/personal habits: . Lives alone. Retired. No use of alcohol tobacco or illicit drugs. Allergies/adverse reactions are listed in [facility] and are reviewed. Home medications are to be reconciled by nursing staff in [facility]. Home medications initially autopopulated into [facility] may not accurately reflect patient's true medications, dosages, and/or frequencies. REVIEW OF SYSTEMS: Constitutional: No fever or chills. Eyes: Wears glasses. ENT: Occasional mild dysphagia without aspiration. No hearing problems or complaints. Pulmonary: No current complaints. Cardiovascular: No current complaints, including chest pain. Gastrointestinal: See history and present illness. Skin: No current complaints, including rashes. Hematologic: No unusual easy bruising or bleeding. Musculoskeletal: Joint pain from arthritis. Psychiatric: Mild depression; denies suicidal or homicidal ideation. Endocrine: No current complaints, including polyuria. Genitourinary: No current complaints, including dysuria. PHYSICAL EXAMINATION: 5 feet 1/2 inches tall. 63.96 kg. BMI 26.2 kg/m. Temperature 97.5. Pulse 70 and regular. Respirations are 18 and unlabored. Blood pressure 115/64. 97 % saturation on room air. Slightly overweight otherwise well-nourished well-developed elderly female appearing a bit younger than her stated age. Pleasant awake alert and cooperative. No obvious distress other than perhaps mildly anxious. Skin is warm and dry. No grossly obvious evidence of rash in areas of skin examined. No subcutaneous nodules palpated. ENT: Hearing grossly normal to normal conversation. Tongue midline on protrusion pink and slightly tacky. Nasogastric tube is in place having drained a small amount of bilious liquid material. Eyes: No scleral icterus. Pupils equal and reactive to light at 4 mm. Pittman conjunctivae. Neck is supple and nontender to gentle active range of motion and palpation. Midline trachea. No palpable thyroid nodule mass enlargement or tenderness. Lymphatic: No palpable cervical or clavicular nodes. Neck and lymphatic exams limited by patient body habitus. Psychiatric: Reasonable insight into acute and chronic medical issues. Oriented to time location and why here. Lungs: Auscultation reveals equal breath sounds bilaterally. Faint brief expiratory wheezing bilaterally; of note, patient states she wheezes most days. No use of accessory respiratory muscles. Cardiovascular: Heart regular rate and rhythm, without gallop murmur or rub. No carotid or abdominal aortic bruits. No ankle or pedal edema. Faintly palpable dorsalis pedis pulses. Abdomen: soft, somewhat obese, moderately distended with rare bowel sounds. Mild diffuse mid abdominal discomfort in a transverse fashion, overlying the area of most pronounced distention. No evidence of guarding or peritoneal signs. Unable to adequately evaluate abdomen for masses or organomegaly due to body habitus, discomfort, and distention. Extremities: Feet are warm and dry. No calf tenderness to compression. No grossly obvious visual evidence of calf swelling. Gentle manipulation of lower extremities fails to reveal any obvious evidence of injury or instability to knees hips or ankles. Neurologic: Moves upper extremities grossly normally. Patellar reflexes absent. Absent Babinski. Light touch is intact at feet. Dorsiflexion and plantarflexion of feet 5 / 5 and symmetric. Past Medical History Cardiac Medical History: Reports: Hyperlipidema, Heart Murmur, Other - She reports history of irregular rhythm, but denies being medicated for this. Denies: Myocardial Infarction, Hypertension Comment Only: Congestive Heart Failure - She is being tested to see if she has this Pulmonary Medical History: Reports: Asthma, Bronchitis, Chronic Obstructive Pulmonary Disease (COPD), Pneumonia Denies: Tuberculosis Neurological Medical History: Denies: Seizures Endocrine Medical History: Reports: Diabetes Mellitus Type 2 - When necessary insulin for steroid induced hypoglycemia. Renal/ Medical History: Reports: Other - History of UTIs Malignancy Medical History: Reports: Other - Bladder cancer GI Medical History: Reports: Diverticulitis, Gastroesophageal Reflux Disease, Hiatal Hernia, Other - History of colon resection, GB, Appy, SBOs c ex-laps, KEN /BSO. Denies: Cirrhosis, Hepatitis Musculoskeltal Medical History: Reports: Arthritis Psychiatric Medical History: Reports: Depression - Some appropriate transient depression after her son 2 years ago. Denies: Alcohol Dependency, Substance Abuse, Tobacco Dependency Hematology: Reports: Anemia Infectious Medical History: Denies: Hepatitis B, Hepatitis C Past Surgical History Past Surgical History: Reports: Appendectomy, Cholecystectomy, Hysterectomy, Orthopedic Surgery - Right hand, Tonsillectomy, Other - Partial colectomy, Exploratory laparoscopy with lysis of adhesions 3 Social History Information Source: Patient, Emergency Med Personnel, [facility] Records Lives with: Alone Smoking Status: Never Smoker Frequency of Alcohol Use: None Hx Recreational Drug Use: No Drugs: None Hx Prescription Drug Abuse: No - Advance Directive Resuscitation Status: Full Code Surrogate healthcare decision maker:: Her sister Family History Family History: CAD, COPD, Hyperlipidemia, Malignancy - 10 siblings, multiple cancers. "Female" cancer, stomach cancer, breast cancer, bladder cancer, prostate cancer, non-Hodgkin's lymphoma, lung cancer, leukemia. Parental Family History Reviewed: Yes Children Family History Reviewed: Yes Sibling(s) Family History Reviewed.: Yes Medication/Allergy Home Medications: Albuterol Sulfate [Proair HFA] 1 puff IH Q4HP PRN 06/11/16 Aspirin [Aspirin 81 mg Chewable Tablet] 81 mg PO DAILY 06/11/16 Benzonatate 100 mg PO Q6HP PRN 06/11/16 Budesonide/Formoterol Fumarate [Symbicort HFA 160-4.5 mcg Inhaler 6 gm] 2 puff IH BID 06/11/16 Famotidine 40 mg PO BID 06/11/16 Melatonin/Pyridoxine HCl (B6) [Melatonin 5 mg Tablet] 5 mg PO HSP PRN 06/11/16 Montelukast Sodium 10 mg PO QPM 06/11/16 Rosuvastatin Calcium [Crestor 20 mg Tablet] 20 mg PO ACHS 06/11/16 Cyclosporine 0.05% Oph Emulsio [Restasis 0.05% Oph Emulsion Pf 0.4 ml] 1 drop OU DAILY droperette 06/16/16 Fluconazole [Diflucan 100 mg Tablet] 150 mg PO DAILY #4 tablet 06/16/16 Fluticasone/Salmeterol [Advair 500-50 Diskus 14 Dose/Diskus] 1 inh IH Q12A inhaler 06/16/16 Prednisone 10 mg PO DAILY #3 tablet 06/16/16 Calcium Carbonate/Simethicone [[place]amm[place] Heartburn+Gas] 1 tab PO ASDIR PRN Cholecalciferol (Vitamin D3) [Vitamin D3 1000 Unit Tablet] 1,000 unit PO DAILY 06/19/16 Fluticasone Propionate [Flonase Nasal [place] 50 Mcg/[place] 16 gm] 1 spray NASL Q12 06/19/16 Multivits-Min/Iron/FA/Lutein [Centrum Silver Women Tablet] 1 tab PO DAILY Sennosides 8.6 mg PO ASDIR PRN 06/19/16 Allergies/Adverse Reactions: ciprofloxacin [From Cipro] Allergy (Verified 06/19/16 05:36) Hives Physical Exam Vital Signs: Temp Pulse Resp BP Pulse Ox 97.5 F 70 18 115/64 97 06/19/16 07:53 06/19/16 07:53 06/19/16 07:53 06/19/16 07:53 06/19/16 07:53 Results Impressions: Abdomen/Pelvis CT 06/19/16 00:36 IMPRESSION: Focal marked dilatation of mid abdominal small bowel loops with no proximal distal dilatation. Strongly suggest a closed loop obstruction. No findings to suggest a volvulus. KUB X-Ray 06/19/16 06:24 IMPRESSION: Fecal retention. Assessment & Plan - Diagnosis (1) Steroid dependent Is this a current diagnosis for this admission?: YesPlan: Has basically been on daily steroids for the past 2 months, due to repeated episodes of respiratory difficulty. Normally takes steroids only on a when necessary tapering schedule. Solu-Cortef every 8 hours. (2) Elevated LFTs Is this a current diagnosis for this admission?: YesPlan: Follow-up chemistry. (3) Hypercalcemia Is this a current diagnosis for this admission?: YesPlan: Follow-up chemistry. (4) Small bowel obstruction Is this a current diagnosis for this admission?: YesPlan: Surgical management. Has been seen by general surgery. I have strongly encouraged patient not to get out of bed without notifying staff , to avoid a fall with injury. Knee high SCDs for DVT prophylaxis, along with subcutaneous Lovenox . Impression and plans were discussed with patient, who concurs. Time spent in evaluation and management of patient: 68 minutes. (5) Chronic obstructive pulmonary disease (COPD) Qualifiers: Emphysema type: unspecified Is this a current diagnosis for this admission?: YesPlan: Clinically stable at present. Resume home medications as appropriate once these have been reviewed. (6) Diabetes mellitus type 2 in nonobese Is this a current diagnosis for this admission?: YesPlan: Accu-Cheks with appropriate sliding scale coverage. - Inpatient Certification Based on my medical assessment, after consideration of the patient's comorbidities, presenting symptoms, or acuity I expect that the services needed warrant INPATIENT care.: Yes I certify that my determination is in accordance with my understanding of Medicare's requirements for reasonable and necessary INPATIENT services [42 CFR 412.3e].: Yes Medical Necessity: Need Close Monitoring Due to Risk of Patient Decompensation, Need For IV Fluids, Need For Continuous Telemetry Monitoring, Need for Nebulizer Therapy and Monitoring of Response, Need for Pain Control, Risk of Diagnosis Which Will Require Inpatient Eval/Care/Monitoring Post Hospital Care: D/C or Transfer Summary
[2016-06-19] MEDS ORDERED: FAMOTIDINE INJ/PF 20 MG/2 ML SDV IV SCH (10:00)
[2016-06-19 10:26] LABS: HEMATOCRIT 38.5 % (36.0-47.0); HEMOGLOBIN 12.7 g/dL (12.0-15.5); HGB HCT DIFFERENCE -0.4; MEAN CORPUSCULAR HEMOGLOBIN 27.2 pg (27.0-33.4); MEAN CORPUSCULAR HGB CONC 32.9 g/dL (32.0-36.0); MEAN CORPUSCULAR VOLUME 83 fl (80-97); RED BLOOD COUNT 4.65 10^6/uL (3.72-5.28); RED CELL DISTRIBUTION WIDTH 15.8 % (11.5-14.0); WHITE BLOOD COUNT 11.5 10^3/uL (4.0-10.5)
[2016-06-19 10:43] LABS: ALANINE AMINOTRANSFERASE 73 U/L (9-52); ALBUMIN 4.3 g/dL (3.5-5.0); ALKALINE PHOSPHATASE 115 U/L (38-126); ANION GAP 13 (5-19); ASPARTATE AMINO TRANSFERASE 33 U/L (14-36); BILIRUBIN,TOTAL 0.7 mg/dL (0.2-1.3); BLOOD UREA NITROGEN 24 mg/dL (7-20); CALCIUM 10.9 mg/dL (8.4-10.2); CARBON DIOXIDE 26 mmol/L (22-30); CHLORIDE 100 mmol/L (98-107); CREATININE RESULT 1.03 mg/dL (0.52-1.25); GLUCOSE 89 mg/dL (75-110); MAGNESIUM 2.1 mg/dL (1.6-2.3); POTASSIUM 4.4 mmol/L (3.6-5.0); SODIUM 138.5 mmol/L (137-145); TOTAL PROTEIN 6.9 g/dL (6.3-8.2)
[2016-06-19 10:48] LABS: BASOPHILS % (MANUAL) 0 % (0-2); EOSINOPHILS % (MANUAL) 0 % (0-6); LYMPHOCYTES % (MANUAL) 21 % (13-45); TOTAL CELLS COUNTED 100
[2016-06-19 10:49] LABS: ANISOCYTOSIS SLIGHT; OVALOCYTES SLIGHT; POIKILOCYTOSIS SLIGHT; TEAR DROP CELLS SLIGHT
--- NOTE | 2016-06-19 11:08 | PDOC PROGRESS REPORT ---
Subjective Progress Note for:: 06/19/16 Subjective:: Feels much better today. No abdominal pain. Passing a little bit of gas. Physical Exam Vital Signs: Temp Pulse Resp BP Pulse Ox 97.5 F 69 16 115/64 92 06/19/16 07:53 06/19/16 11:02 06/19/16 09:31 06/19/16 07:53 06/19/16 09:31 General appearance: PRESENT: no acute distress Respiratory exam: PRESENT: clear to auscultation valerie Cardiovascular exam: PRESENT: RRR GI/Abdominal exam: PRESENT: other - Mildly distended. Slightly firm throughout but patient notes that this is her baseline status. Multiple abdominal scars. Nontender. Decreased bowel sounds. Minimal NG output. Neurological exam: PRESENT: alert, altered Results Laboratory Results: 06/19/16 10:05 06/19/16 10:05 06/19/16 06/19/16 10:05 10:05 WBC 11.5 H RBC 4.65 Hgb 12.7 Hct 38.5 MCV 83 MCH 27.2 MCHC 32.9 RDW 15.8 H Plt Count 295 Seg Neutrophils % Not Reportable Lymphocytes % Not Reportable Monocytes % Not Reportable Eosinophils % Not Reportable Basophils % Not Reportable Absolute Neutrophils Not Reportable Absolute Lymphocytes Not Reportable Absolute Monocytes Not Reportable Absolute Eosinophils Not Reportable Absolute Basophils Not Reportable Sodium 138.5 Potassium 4.4 Chloride 100 Carbon Dioxide 26 Anion Gap 13 BUN 24 H Creatinine 1.03 Est GFR ( Amer) > 60 Est GFR (Non-Af Amer) 52 L Glucose 89 Calcium 10.9 H Magnesium 2.1 Total Bilirubin 0.7 AST 33 ALT 73 H Alkaline Phosphatase 115 Total Protein 6.9 Albumin 4.3 Impressions: Abdomen/Pelvis CT 06/19/16 00:36 IMPRESSION: Focal marked dilatation of mid abdominal small bowel loops with no proximal distal dilatation. Strongly suggest a closed loop obstruction. No findings to suggest a volvulus. KUB X-Ray 06/19/16 06:24 IMPRESSION: Fecal retention. Assessment & Plan - Diagnosis (1) Constipation Is this a current diagnosis for this admission?: YesPlan: Patient appears markedly improved from yesterday. KUB appearances consistent with constipation rather than bowel obstruction today. Will order enemas for the patient. If patient continues to improve will plan to DC her NG tube tomorrow and start a diet.
[2016-06-19] MEDS: MORPHINE SULFATE 10 MG/ML INJ IV PRN ×2 (11:25→22:09)
[2016-06-19] MEDS: POTASSI CL 20 MEQ/D5-1/2NS 1L 1,000 ML IV PRN ×2 (11:25→20:50)
[2016-06-19] MEDS: PANTOPRAZOLE SODIUM 40 MG VIAL IV SCH ×2 (11:43→22:02)
[2016-06-19] MEDS: BUDESONIDE/FORMOTEROL 160-4.5 MCG 60 PUFF/6 GM MDI IH SCH ×2 (11:43→18:08)
[2016-06-19] MEDS ORDERED: NA PHOS,M-B/NA PHOS,DI-BA (ADULT) 133 ML ENEMA PR ONE (12:00)
[2016-06-19] MEDS: ASPIRIN 300 MG SUPP, RECTAL PR SCH (13:50)
[2016-06-19] MEDS: HYDROCORTISONE SOD SUCCINATE INJ/PF 100 MG/2 ML SDV IV SCH ×2 (15:09→22:01)
--- NOTE | 2016-06-19 17:09 | PDOC PROGRESS REPORT ---
Subjective Progress Note for:: 06/19/16 Subjective:: The patient was seen earlier today on rounds. The patient states she feels much better than when she presented. The patient has not had any episodes of actual vomiting. The patient is having substantial drainage and her NG tube. The patient denies any nausea, vomiting, diarrhea, shortness of breath, dizziness, chest pain, heart palpitations, fevers, or chills. The patient has remained afebrile. Blood pressures have been in a good range. When prompted the patient voices no other concerns at this time. Review of systems: The rest of the review of systems is negative. Physical Exam Vital Signs: Temp Pulse Resp BP Pulse Ox 98.0 F 74 15 116/60 95 06/19/16 12:05 06/19/16 15:00 06/19/16 12:05 06/19/16 12:05 06/19/16 12:05 Intake & Output 06/17/16 06/18/16 06/19/16 23:59 23:59 23:59 Intake Total 700 Balance 700 General appearance: PRESENT: no acute distress, cooperative, well-developed, well-nourished Head exam: PRESENT: atraumatic, normocephalic Eye exam: PRESENT: conjunctiva pink, EOMI, PERRLA. ABSENT: scleral icterus Ear exam: PRESENT: normal external ear exam Mouth exam: PRESENT: moist, tongue midline Neck exam: ABSENT: carotid bruit, JVD, lymphadenopathy, thyromegaly Respiratory exam: PRESENT: clear to auscultation valerie. ABSENT: rales, rhonchi, wheezes Cardiovascular exam: PRESENT: RRR. ABSENT: diastolic murmur, rubs, systolic murmur Pulses: PRESENT: normal dorsalis pedis pul Vascular exam: PRESENT: normal capillary refill GI/Abdominal exam: PRESENT: distended, firm, hypoactive bowel sounds, normal bowel sounds, soft. ABSENT: guarding, mass, organolmegaly, rebound, tenderness Rectal exam: PRESENT: deferred Extremities exam: PRESENT: full ROM. ABSENT: calf tenderness, clubbing, pedal edema Neurological exam: PRESENT: alert, awake, oriented to person, oriented to place , oriented to time, oriented to situation, CN II-XII grossly intact. ABSENT: motor sensory deficit Psychiatric exam: PRESENT: appropriate affect, normal mood. ABSENT: homicidal ideation, suicidal ideation Skin exam: PRESENT: dry, intact, warm. ABSENT: cyanosis, rash Results Laboratory Results: 06/19/16 10:05 06/19/16 10:05 06/19/16 06/19/16 10:05 10:05 WBC 11.5 H RBC 4.65 Hgb 12.7 Hct 38.5 MCV 83 MCH 27.2 MCHC 32.9 RDW 15.8 H Plt Count 295 Seg Neutrophils % Not Reportable Lymphocytes % Not Reportable Monocytes % Not Reportable Eosinophils % Not Reportable Basophils % Not Reportable Absolute Neutrophils Not Reportable Absolute Lymphocytes Not Reportable Absolute Monocytes Not Reportable Absolute Eosinophils Not Reportable Absolute Basophils Not Reportable Sodium 138.5 Potassium 4.4 Chloride 100 Carbon Dioxide 26 Anion Gap 13 BUN 24 H Creatinine 1.03 Est GFR ( Amer) > 60 Est GFR (Non-Af Amer) 52 L Glucose 89 Calcium 10.9 H Magnesium 2.1 Total Bilirubin 0.7 AST 33 ALT 73 H Alkaline Phosphatase 115 Total Protein 6.9 Albumin 4.3 Impressions: Abdomen/Pelvis CT 06/19/16 00:36 IMPRESSION: Focal marked dilatation of mid abdominal small bowel loops with no proximal distal dilatation. Strongly suggest a closed loop obstruction. No findings to suggest a volvulus. KUB X-Ray 06/19/16 06:24 IMPRESSION: Fecal retention. Assessment & Plan - Diagnosis (1) Small bowel obstruction Is this a current diagnosis for this admission?: YesPlan: Do appreciate surgery's input with this. Strict nothing by mouth and NG tube to low wall suction. Will continue gently hydrate. (2) Constipation Qualifiers: Constipation type: unspecified constipation type Qualified Code(s): K59.00 - Constipation, unspecified Is this a current diagnosis for this admission?: YesPlan: Hold cathartics for now (3) Elevated LFTs Is this a current diagnosis for this admission?: YesPlan: Improved (4) Hypercalcemia Is this a current diagnosis for this admission?: YesPlan: Improved (5) Steroid dependent Is this a current diagnosis for this admission?: Yes (6) Chronic obstructive pulmonary disease (COPD) Qualifiers: Emphysema type: unspecified Is this a current diagnosis for this admission?: YesPlan: Currently asymptomatic (7) Diabetes mellitus type 2 in nonobese Is this a current diagnosis for this admission?: Yes (8) Hyperlipemia Qualifiers: Hyperlipidemia type: pure hypercholesterolemia Qualified Code(s): E78.00 - Pure hypercholesterolemia, unspecified; E78.0 - Pure hypercholesterolemia Is this a current diagnosis for this admission?: YesPlan: Will hold statin - Time Time Spent with patient: on this visit including assessment, plan, physical examination, and patient education is 35 minutes. Time Spent with patient: 35 or more minutes Medications reviewed and adjusted accordingly: Yes Anticipated discharge: Home Within: Other - When clear by surgery Disposition: The patient is a full code. Pending patient's symptomatology and diagnostic findings will reevaluate in the a.m.
[2016-06-19] MEDS: FLUTICASONE/SALMETEROL DISKUS 500-50 MCG/DOSE IH SCH (18:07)
[2016-06-19] MEDS: NA PHOS,M-B/NA PHOS,DI-BA (ADULT) 133 ML ENEMA PR SCH (22:02)
[2016-06-20] MEDS: POTASSI CL 20 MEQ/D5-1/2NS 1L 1,000 ML IV PRN ×2 (04:36→16:46)
[2016-06-20] MEDS: HYDROCORTISONE SOD SUCCINATE INJ/PF 100 MG/2 ML SDV IV SCH ×3 (05:09→21:45)
[2016-06-20] MEDS: FLUTICASONE/SALMETEROL DISKUS 500-50 MCG/DOSE IH SCH ×2 (05:09→17:17)
[2016-06-20 07:15] LABS: HEMATOCRIT 35.4 % (36.0-47.0); HEMOGLOBIN 10.8 g/dL (12.0-15.5); MEAN CORPUSCULAR HEMOGLOBIN 25.6 pg (27.0-33.4); MEAN CORPUSCULAR HGB CONC 30.5 g/dL (32.0-36.0); MEAN CORPUSCULAR VOLUME 84 fl (80-97); RED BLOOD COUNT 4.21 10^6/uL (3.72-5.28); RED CELL DISTRIBUTION WIDTH 15.8 % (11.5-14.0); WHITE BLOOD COUNT 11.8 10^3/uL (4.0-10.5)
[2016-06-20 07:21] LABS: ALANINE AMINOTRANSFERASE 51 U/L (9-52); ALBUMIN 3.2 g/dL (3.5-5.0); ALKALINE PHOSPHATASE 76 U/L (38-126); ANION GAP 9 (5-19); ASPARTATE AMINO TRANSFERASE 27 U/L (14-36); BILIRUBIN,TOTAL 0.6 mg/dL (0.2-1.3); BLOOD UREA NITROGEN 14 mg/dL (7-20); CALCIUM 9.4 mg/dL (8.4-10.2); CARBON DIOXIDE 23 mmol/L (22-30); CHLORIDE 104 mmol/L (98-107); CREATININE RESULT 0.75 mg/dL (0.52-1.25); GLUCOSE 146 mg/dL (75-110); MAGNESIUM 1.9 mg/dL (1.6-2.3); PHOSPHORUS 3.9 mg/dL (2.5-4.5); POTASSIUM 4.6 mmol/L (3.6-5.0); SODIUM 135.9 mmol/L (137-145); TOTAL PROTEIN 5.6 g/dL (6.3-8.2)
[2016-06-20] MEDS: ENOXAPARIN SODIUM INJ 40 MG/0.4 ML DISP.SYRIN SUBCUT SCH (08:22)
[2016-06-20] MEDS: PANTOPRAZOLE SODIUM 40 MG VIAL IV SCH ×2 (10:00→21:45)
[2016-06-20] MEDS: BUDESONIDE/FORMOTEROL 160-4.5 MCG 60 PUFF/6 GM MDI IH SCH ×2 (10:00→17:17)
--- NOTE | 2016-06-20 10:20 | PDOC PROGRESS REPORT ---
Subjective Progress Note for:: 06/20/16 Subjective:: The patient is currently eyeing in bed. The patient states that she has had bowel seepage but no actual bowel movements. The patient states she has not passed actual gas but her abdomen is not as tender or distended. Patient's follow-up imaging was suggestive of a large amount of stool in the colon. The patient states that she is frustrated that she doesn't know what the plan is although I have gone over it with her for 2 days that this will take time to try to correct this with low wall suction with the goal to avoid operative intervention. I explained that to the patient that surgery would be decided by the surgeon. I don't know what else the patient could possibly question. The patient states that she doesn't understand why this bowel obstruction was not discovered during a previous admission and I explained to her that these occur rapidly and prior imaging did not suggest this. The patient then stated that she had had previous bowel surgeries and understood the process and new that they could start suddenly. The patient denies any nausea, vomiting, diarrhea, shortness of breath, dizziness, chest pain, heart palpitations, fevers, or chills. The patient has remained afebrile. Blood pressures have been in a good range. The patient voices no other concerns at this time. Review of systems: The rest of the review of systems is negative. Physical Exam Vital Signs: Temp Pulse Resp BP Pulse Ox 98.0 F 84 20 123/55 L 98 06/20/16 07:21 06/20/16 07:21 06/20/16 07:21 06/20/16 07:21 06/20/16 07:21 Intake & Output 06/18/16 06/19/16 06/20/16 23:59 23:59 23:59 Intake Total 700 1440 Balance 700 1440 Weight 63.1 kg General appearance: PRESENT: no acute distress, cooperative, well-developed, well-nourished Head exam: PRESENT: atraumatic, normocephalic Eye exam: PRESENT: conjunctiva pink, EOMI, PERRLA. ABSENT: scleral icterus Ear exam: PRESENT: normal external ear exam Mouth exam: PRESENT: moist, tongue midline Neck exam: ABSENT: carotid bruit, JVD, lymphadenopathy, thyromegaly Respiratory exam: PRESENT: clear to auscultation valerie. ABSENT: rales, rhonchi, wheezes Cardiovascular exam: PRESENT: RRR. ABSENT: diastolic murmur, rubs, systolic murmur Pulses: PRESENT: normal dorsalis pedis pul Vascular exam: PRESENT: normal capillary refill GI/Abdominal exam: PRESENT: distended, firm, hypoactive bowel sounds, normal bowel sounds, soft. ABSENT: guarding, mass, organolmegaly, rebound, tenderness Rectal exam: PRESENT: deferred Extremities exam: PRESENT: full ROM. ABSENT: calf tenderness, clubbing, pedal edema Neurological exam: PRESENT: alert, awake, oriented to person, oriented to place , oriented to time, oriented to situation, CN II-XII grossly intact. ABSENT: motor sensory deficit Psychiatric exam: PRESENT: appropriate affect, normal mood. ABSENT: homicidal ideation, suicidal ideation Skin exam: PRESENT: dry, intact, warm. ABSENT: cyanosis, rash Results Laboratory Results: 06/20/16 05:59 06/20/16 05:59 06/19/16 06/19/16 06/20/16 10:05 10:05 05:59 WBC 11.5 H 11.8 H RBC 4.65 4.21 Hgb 12.7 10.8 L Hct 38.5 35.4 L MCV 83 84 MCH 27.2 25.6 L MCHC 32.9 30.5 L RDW 15.8 H 15.8 H Plt Count 295 243 Seg Neutrophils % Not Reportable Lymphocytes % Not Reportable Monocytes % Not Reportable Eosinophils % Not Reportable Basophils % Not Reportable Absolute Neutrophils Not Reportable Absolute Lymphocytes Not Reportable Absolute Monocytes Not Reportable Absolute Eosinophils Not Reportable Absolute Basophils Not Reportable Sodium 138.5 Potassium 4.4 Chloride 100 Carbon Dioxide 26 Anion Gap 13 BUN 24 H Creatinine 1.03 Est GFR ( Amer) > 60 Est GFR (Non-Af Amer) 52 L Glucose 89 Calcium 10.9 H Phosphorus Magnesium 2.1 Total Bilirubin 0.7 AST 33 ALT 73 H Alkaline Phosphatase 115 Total Protein 6.9 Albumin 4.3 06/20/16 05:59 WBC RBC Hgb Hct MCV MCH MCHC RDW Plt Count Seg Neutrophils % Lymphocytes % Monocytes % Eosinophils % Basophils % Absolute Neutrophils Absolute Lymphocytes Absolute Monocytes Absolute Eosinophils Absolute Basophils Sodium 135.9 L Potassium 4.6 Chloride 104 Carbon Dioxide 23 Anion Gap 9 BUN 14 Creatinine 0.75 Est GFR ( Amer) > 60 Est GFR (Non-Af Amer) > 60 Glucose 146 H Calcium 9.4 Phosphorus 3.9 Magnesium 1.9 Total Bilirubin 0.6 AST 27 ALT 51 Alkaline Phosphatase 76 Total Protein 5.6 L Albumin 3.2 L Impressions: Abdomen/Pelvis CT 06/19/16 00:36 IMPRESSION: Focal marked dilatation of mid abdominal small bowel loops with no proximal distal dilatation. Strongly suggest a closed loop obstruction. No findings to suggest a volvulus. KUB X-Ray 06/19/16 06:24 IMPRESSION: Fecal retention. Abdomen X-Ray 06/20/16 07:00 IMPRESSION: Large amount of stool in the ascending and transverse colon Assessment & Plan - Diagnosis (1) Small bowel obstruction Is this a current diagnosis for this admission?: YesPlan: Do appreciate surgery's input with this. Strict nothing by mouth and NG tube to low wall suction. Will continue gently hydrate. (2) Constipation Qualifiers: Constipation type: unspecified constipation type Qualified Code(s): K59.00 - Constipation, unspecified Is this a current diagnosis for this admission?: YesPlan: Patient's imaging does show a large amount of stool still retained in the colon. The patient has received enemas but has not had an actual bowel movement only bowel seepage. (3) Elevated LFTs Is this a current diagnosis for this admission?: YesPlan: Improved (4) Hypercalcemia Is this a current diagnosis for this admission?: YesPlan: Normalized with hydration (5) Steroid dependent Is this a current diagnosis for this admission?: Yes (6) Chronic obstructive pulmonary disease (COPD) Qualifiers: Emphysema type: unspecified Is this a current diagnosis for this admission?: YesPlan: Currently asymptomatic (7) Diabetes mellitus type 2 in nonobese Is this a current diagnosis for this admission?: YesPlan: Continues [place] coverage for now (8) Hyperlipemia Qualifiers: Hyperlipidemia type: pure hypercholesterolemia Qualified Code(s): E78.00 - Pure hypercholesterolemia, unspecified; E78.0 - Pure hypercholesterolemia Is this a current diagnosis for this admission?: YesPlan: Will hold statin - Time Time Spent with patient: on this visit including assessment, plan, physical examination, and patient education is 25 minutes. Time Spent with patient: 25-34 minutes Medications reviewed and adjusted accordingly: Yes Disposition: The patient is a full code. Pending patient's symptomatology and diagnostic findings will reevaluate in the a.m.
[2016-06-20] MEDS ORDERED: (PENDING PHARMACY ID) (Rosuvastatin Calcium [Crestor 20 Mg Tablet] 20 MG) PO SCH (11:00)
[2016-06-20] MEDS: ASPIRIN 300 MG SUPP, RECTAL PR SCH (11:25)
[2016-06-20] MEDS: NA PHOS,M-B/NA PHOS,DI-BA (ADULT) 133 ML ENEMA PR SCH (11:25)
[2016-06-20] MEDS ORDERED: MONTELUKAST SODIUM 10 MG TABLET PO SCH (18:00)
--- NOTE | 2016-06-20 19:38 | PROGRESS NOTE E ---
Progress Note NAME: BRIE MERCADO : 1940 AGE: 76Y DATE: 06/20/2016 ROOM: 529 SUBJECTIVE: The patient is without complaints at this time, has had a BM and is passing flatus. OBJECTIVE: VITAL SIGNS: Temperature 98.4, pulse 80, blood pressure 122/63, respirations 20, saturations 97% on room air. CHEST: The patient's lungs are clear. CARDIOVASCULAR SYSTEM: Pulse is regular. ABDOMEN: Soft. Bowel sounds are present. It is nontender. The patient's NG tube was removed, and patient is being started on clear-liquid diet. ASSESSMENT: RESOLVED SMALL BOWEL OBSTRUCTION. PLAN: Will advance diet accordingly and consider discharge planning tomorrow. DICTATING PHYSICIAN: TREVOR MISHRA M.D. [id number] PHY#: [id number] ID: [id number] JOB#: [id number] ACCT: [id number] cc:TREVOR MISHRA M.D. >
[2016-06-20] MEDS ORDERED: ATORVASTATIN CALCIUM 40 MG TABLET PO SCH (22:00)
[2016-06-21] MEDS: MORPHINE SULFATE 10 MG/ML INJ IV PRN (03:35)
[2016-06-21] MEDS: FLUTICASONE/SALMETEROL DISKUS 500-50 MCG/DOSE IH SCH (05:41)
[2016-06-21] MEDS: HYDROCORTISONE SOD SUCCINATE INJ/PF 100 MG/2 ML SDV IV SCH ×2 (05:41→15:20)
[2016-06-21] MEDS: POTASSI CL 20 MEQ/D5-1/2NS 1L 1,000 ML IV PRN (07:13)
[2016-06-21] MEDS: BUDESONIDE/FORMOTEROL 160-4.5 MCG 60 PUFF/6 GM MDI IH SCH (11:19)
[2016-06-21] MEDS: PANTOPRAZOLE SODIUM 40 MG VIAL IV SCH (11:19)
[2016-06-21] MEDS: ENOXAPARIN SODIUM INJ 40 MG/0.4 ML DISP.SYRIN SUBCUT SCH (11:20)
[2016-06-21] MEDS: ASPIRIN 300 MG SUPP, RECTAL PR SCH (11:21)
--- NOTE | 2016-06-21 15:34 | PDOC DISCHARGE SUMMARY ---
General - Admit/Disc Date/PCP Admission Date/Primary Care Provider: 06/19/16 08:35 MELINA ARMIJO Consulting surgicalist: Dr. Ashraf Discharge Date: 06/21/16 - Discharge Diagnosis (1) Small bowel obstruction Is this a current diagnosis for this admission?: Yes (2) Constipation Is this a current diagnosis for this admission?: Yes (3) Elevated LFTs Is this a current diagnosis for this admission?: Yes (4) Hypercalcemia Is this a current diagnosis for this admission?: Yes (5) Steroid dependent Is this a current diagnosis for this admission?: Yes (6) Chronic obstructive pulmonary disease (COPD) Is this a current diagnosis for this admission?: Yes (7) Diabetes mellitus type 2 in nonobese Is this a current diagnosis for this admission?: Yes (8) Hyperlipemia Is this a current diagnosis for this admission?: Yes - Additional Information Resuscitation Status: Full Code Discharge Diet: As Tolerated Discharge Activity: Activity As Tolerated Home Medications: Albuterol Sulfate [Proair HFA] 1 puff IH Q4HP PRN 06/11/16 Aspirin [Aspirin 81 mg Chewable Tablet] 81 mg PO DAILY 06/11/16 Benzonatate 100 mg PO Q6HP PRN 06/11/16 Budesonide/Formoterol Fumarate [Symbicort HFA 160-4.5 mcg Inhaler 6 gm] 2 puff IH BID 06/11/16 Famotidine 40 mg PO BID 06/11/16 Melatonin/Pyridoxine HCl (B6) [Melatonin 5 mg Tablet] 5 mg PO HSP PRN 06/11/16 Montelukast Sodium 10 mg PO QPM 06/11/16 Rosuvastatin Calcium [Crestor 20 mg Tablet] 20 mg PO ACHS 06/11/16 Cyclosporine 0.05% Oph Emulsio [Restasis 0.05% Oph Emulsion Pf 0.4 ml] 1 drop OU DAILY droperette 06/16/16 Fluticasone/Salmeterol [Advair 500-50 Diskus 14 Dose/Diskus] 1 inh IH Q12A inhaler 06/16/16 Calcium Carbonate/Simethicone [[place] Heartburn+Gas] 1 tab PO ASDIR PRN Cholecalciferol (Vitamin D3) [Vitamin D3 1000 Unit Tablet] 1,000 unit PO DAILY 06/19/16 Fluticasone Propionate [Flonase Nasal [place] 50 Mcg/[place] 16 gm] 1 spray NASL Q12 06/19/16 Multivits-Min/Iron/FA/Lutein [Centrum Silver Women Tablet] 1 tab PO DAILY Sennosides 8.6 mg PO ASDIR PRN 06/19/16 Wheat Dextrin [Benefiber] 144 gm PO BID #1 powder 06/21/16 History of Present Illness History of Present Illness: BRIE MERCADO is a 76-year-old female, with non home O2 dependent COPD , though basically on daily steroids for the past 2 months due to recurrent pulmonary issues, and with a history of exploratory laparotomy 3 for small bowel obstruction, who presents to the emergency room for evaluation of abdominal pain nausea and vomiting. Noted the onset of cramping pressure-like mid abdominal pain, with associated bloating the morning of the . States this was the "worst pain ever." Similar milder episodes, in terms of pain, in the past, with 3 episodes treated by surgery, and at least one episode treated nonoperatively. Increased pain with certain movements, and sometimes simply on its own. No fever chills, diarrhea or dysuria. Small bowel movement earlier in the day on the . Does state that she's been passing small amounts of flatus since insertion of the NG tube, which has also decreased some of the bloating and cramping discomfort in her abdomen. Hospitalized on our service the through the of this month with final diagnoses including dehydration, vomiting and diarrhea. Admitted to our service November 11 of last year for chest tightness and COPD exacerbation. The patient was seen and evaluated by surgery on consultation but was referred to the hospitalist remission and management. Hospital Course Hospital Course: The patient was admitted to continuous telemetry unit. The patient was made strict nothing by mouth. Nasogastric tube was placed without issue and put on intermittent low wall suction. The patient did have significant drainage and NG tube. Repeat imaging was suggestive of resolution. The patient was given enemas and was able to produce significant bowel movements. The patient's diet was started on clear liquids and was advanced as tolerated. Patient was able to tolerate substantial foods. Patient was seen and reexamined by surgery and has been cleared for discharge. I discussed the patient's recurrent bowel obstructions and given her previous laparotomies due to bowel obstructions I inquired about bowel regimens. Patient is not prescribed any cathartics and usually has a bowel movement every 4-5 days which always starts his diarrhea. This is going on for a number of years. Recommendations and prescription was made given for proper supplements with the goal of having a complete bowel movement daily. The patient is in agreement as to this plan and is ready for discharge. Physical Exam Vital Signs: Temp Pulse Resp BP Pulse Ox 97.9 F 82 16 128/91 H 97 06/21/16 11:37 06/21/16 13:46 06/21/16 13:46 06/21/16 11:37 06/21/16 13:46 Intake & Output 06/19/16 06/20/16 06/21/16 23:59 23:59 23:59 Intake Total 700 2980 1600 Output Total 2 Balance 700 2980 1598 Weight 63.1 kg 63.1 kg General appearance: PRESENT: no acute distress, cooperative, well-developed, well-nourished Head exam: PRESENT: atraumatic, normocephalic Eye exam: PRESENT: conjunctiva pink, EOMI, PERRLA. ABSENT: scleral icterus Ear exam: PRESENT: normal external ear exam Mouth exam: PRESENT: moist, tongue midline Neck exam: ABSENT: carotid bruit, JVD, lymphadenopathy, thyromegaly Respiratory exam: PRESENT: clear to auscultation valerie. ABSENT: rales, rhonchi, wheezes Cardiovascular exam: PRESENT: RRR. ABSENT: diastolic murmur, rubs, systolic murmur Pulses: PRESENT: normal dorsalis pedis pul Vascular exam: PRESENT: normal capillary refill GI/Abdominal exam: PRESENT: distended, firm, hypoactive bowel sounds, normal bowel sounds, soft. ABSENT: guarding, mass, organolmegaly, rebound, tenderness Rectal exam: PRESENT: deferred Extremities exam: PRESENT: full ROM. ABSENT: calf tenderness, clubbing, pedal edema Neurological exam: PRESENT: alert, awake, oriented to person, oriented to place , oriented to time, oriented to situation, CN II-XII grossly intact. ABSENT: motor sensory deficit Psychiatric exam: PRESENT: appropriate affect, normal mood. ABSENT: homicidal ideation, suicidal ideation Skin exam: PRESENT: dry, intact, warm. ABSENT: cyanosis, rash Results Laboratory Results: 06/20/16 05:59 06/20/16 05:59 Impressions: Abdomen/Pelvis CT 06/19/16 00:36 IMPRESSION: Focal marked dilatation of mid abdominal small bowel loops with no proximal distal dilatation. Strongly suggest a closed loop obstruction. No findings to suggest a volvulus. KUB X-Ray 06/19/16 06:24 IMPRESSION: Fecal retention. Abdomen X-Ray 06/20/16 07:00 IMPRESSION: Large amount of stool in the ascending and transverse colon Qualifiers PATEINT BEING DISCHARGED WITH ANY OF THE FOLLOWING DIAGNOSIS?: No Plan Discharge Plan: The patient is to followup with their primary care provider, Dr. Armijo, within one week for hospital followup regarding recurrent constipation bowel obstruction. Time Spent: Less than 30 Minutes
[2016-06-21 15:53] VITALS: BP 115/52
--- NOTE | 2016-06-22 00:48 | PROGRESS NOTE E ---
Progress Note NAME: BRIE MERCADO : 1940 AGE: 76Y DATE: 06/21/2016 ROOM: 529 SUBJECTIVE: The patient is dressed with makeup on and looks to be going home today and is feeling quite well. OBJECTIVE: VITAL SIGNS: Are noted and stable. ABDOMEN: Soft, bowel sounds present. It is nontender. The patient has good bowel movements and is passing gas. ASSESSMENT: Resolved small bowel obstruction. PLAN: The patient is cleared to go home from a surgical standpoint. DICTATING PHYSICIAN: TREVOR MISHRA M.D. [id number] PHY#: [id number] ID: [id number] JOB#: [id number] ACCT: [id number] cc: >
== END 2016-06-21 16:30 | disposition home or self-care (01) | DRG 389 ==
LOC: ER 22:57 → EH 06-19 06:27 → UNDOADMIN 06-19 06:27 → 5 06-19 08:35 → EH 06-19 08:44 → 5 06-19 08:44
PROVIDERS: ADMIT Family Medicine; ATTEND Family Medicine
PROC: 0DH673Z Insertion of Infusion Device into Stomach, Via Natural or Artificial Opening (ICD-10-PCS; principal; 2016-06-19)
PROC: 3E0F73Z Introduction of Anti-inflammatory into Respiratory Tract, Via Natural or Artificial Opening (ICD-10-PCS; 2016-06-19)
DX: K56.60 Unspecified intestinal obstruction (principal); J44.1 Chronic obstructive pulmonary disease with (acute) exacerbation; E83.52 Hypercalcemia; E11.9 Type 2 diabetes mellitus without complications; E78.5 Hyperlipidemia, unspecified; R01.1 Cardiac murmur, unspecified; J45.909 Unspecified asthma, uncomplicated; K21.9 Gastro-esophageal reflux disease without esophagitis; M19.90 Unspecified osteoarthritis, unspecified site; F32.9 Major depressive disorder, single episode, unspecified; K59.00 Constipation, unspecified; E78.00 Pure hypercholesterolemia, unspecified; Z90.49 Acquired absence of other specified parts of digestive tract; Z90.710 Acquired absence of both cervix and uterus; Z99.81 Dependence on supplemental oxygen; Z60.2 Problems related to living alone; Z88.3 Allergy status to other anti-infective agents; Z79.899 Other long term (current) drug therapy; Z79.52 Long term (current) use of systemic steroids; Z85.51 Personal history of malignant neoplasm of bladder; Z82.49 Family history of ischemic heart disease and other diseases of the circulatory system; Z83.6 Family history of other diseases of the respiratory system; Z80.0 Family history of malignant neoplasm of digestive organs; Z80.52 Family history of malignant neoplasm of bladder; Z80.3 Family history of malignant neoplasm of breast; Z80.42 Family history of malignant neoplasm of prostate; Z80.1 Family history of malignant neoplasm of trachea, bronchus and lung; Z80.6 Family history of leukemia
CPT/HCPCS: 36415; 74000; 74020; 74177; 80053; 81001; 82962; 83605; 83690; 83735; 84100; 85025; 85027; 94799; 96374; 96375; 96376; 99285; J1650; J1720; J2270; J2405; J3480; J3490; S0164

== ENCOUNTER 2016-07-25 13:01 | Inpatient (IN) | payer MEDICARE ==
[2016-07-25] MEDS ORDERED: ASPIRIN 81 MG TABLET, CHEWABLE PO ONE (13:15)
[2016-07-25] MEDS ORDERED: IPRATROPIUM/ALBUTEROL 0.5-2.5 MG/3 ML AMPUL NEB ONE (13:15)
--- NOTE | 2016-07-25 13:20 | ER Document Report ---
ED Medical Screen (RME) - General Chief Complaint: Chest Pain Stated Complaint: CHEST PAIN Mode of Arrival: Ambulatory Information source: Patient Notes: 76-year-old female presents to the emergency department complaining of chest pain since approximately 4:00 this morning. Also reports associated cough, shortness of breath, over the last week. Reports hx of asthma and COPD. I have greeted and performed a rapid initial assessment of this patient. A comprehensive ED assessment and evaluation of the patient, analysis of test results and completion of the medical decision making process will be conducted by additional ED providers. TRAVEL OUTSIDE OF THE [place] IN LAST 30 DAYS: No - Related Data Allergies/Adverse Reactions: ciprofloxacin [From Cipro] Allergy (Verified 07/25/16 13:14) Hives Past Medical History - Social History Chew tobacco use (# tins/day): No Frequency of alcohol use: None Drug Abuse: None Family history: Reviewed & Not Pertinent - Past Medical History Cardiac Medical History: Reports: Hx Hypercholesterolemia, Hx Heart Murmur Denies: Hx Heart Attack, Hx Hypertension Comment Only: Hx Congestive Heart Failure - She is being tested to see if she has this Pulmonary Medical History: Reports: Hx Asthma, Hx Bronchitis, Hx COPD, Hx Pneumonia Denies: Hx Tuberculosis Neurological Medical History: Denies: Hx Seizures Endocrine Medical History: Reports: Hx Diabetes Mellitus Type 2 - When necessary insulin for steroid induced hypoglycemia. Renal/ Medical History: Denies: Hx Peritoneal Dialysis GI Medical History: Reports: Hx Diverticulitis, Hx Gastroesophageal Reflux Disease, Hx Hiatal Hernia, Hx Irritable Bowel, Hx Ulcer. Denies: Hx Cirrhosis, Hx Hepatitis Musculoskeltal Medical History: Reports Hx Arthritis Psychiatric Medical History: Reports: Hx Depression - Some appropriate transient depression after her son 2 years ago. Denies: Hx Anxiety - Patient denies history of anxiety Infectious Medical History: Denies: Hx Hepatitis Past Surgical History: Reports: Hx Abdominal Surgery - 3 ex-laops with lysis of adhesions for SBO, Hx Appendectomy, Hx Bowel Surgery, Hx Cholecystectomy, Hx Gynecologic Surgery - hysterectomy, Hx Hysterectomy, Hx Orthopedic Surgery - Right hand, Hx Tonsillectomy, Other - Partial colectomy, Exploratory laparoscopy with lysis of adhesions 3 - Immunizations Hx Diphtheria, Pertussis, Tetanus Vaccination: Yes Physical Exam - Vital signs Vitals: Temp Pulse Resp BP Pulse Ox 98.4 F 98 20 112/65 96 07/25/16 13:14 07/25/16 13:14 07/25/16 13:14 07/25/16 13:14 07/25/16 13:14 - General General appearance: Appears well, Alert In distress: None - Respiratory Respiratory status: No respiratory distress. No: Labored, Tachypnea Breath sounds: Rhonchi - mild scaterred bilaterally, Wheezing - mild expiratory Course - Vital Signs Vital signs: Temp Pulse Resp BP Pulse Ox 98.4 F 98 20 112/65 96 07/25/16 13:14 07/25/16 13:14 07/25/16 13:14 07/25/16 13:14 07/25/16 13:14
[2016-07-25] MEDS ORDERED: ONDANSETRON 4 MG TAB.RAPDIS PO ONE (13:29)
[2016-07-25 14:09] LABS: ABSOLUTE EOSINOPHILS # (AUTO) 0.1 10^3/uL (0.0-0.6); ABSOLUTE LYMPHOCYTES (AUTO) 1.1 10^3/uL (0.5-4.7); ABSOLUTE MONOCYTES (AUTO) 0.9 10^3/uL (0.1-1.4); ABSOLUTE NEUT (AUTO) 12.1 10^3/uL (1.7-8.2); BASOPHILS % (AUTO) 0.3 % (0-2); EOSINOPHILS % (AUTO) 0.6 % (0-6); HEMATOCRIT 31.8 % (36.0-47.0); HEMOGLOBIN 10.4 g/dL (12.0-15.5); HGB HCT DIFFERENCE -0.6; MEAN CORPUSCULAR HEMOGLOBIN 26.5 pg (27.0-33.4); MEAN CORPUSCULAR HGB CONC 32.6 g/dL (32.0-36.0); MEAN CORPUSCULAR VOLUME 81 fl (80-97); MONOCYTES % (AUTO) 6.6 % (3-13); RED BLOOD COUNT 3.91 10^6/uL (3.72-5.28); RED CELL DISTRIBUTION WIDTH 14.9 % (11.5-14.0); SEGMENTED NEUTROPHILS % (AUTO) 84.5 % (42-78); WHITE BLOOD COUNT 14.3 10^3/uL (4.0-10.5)
[2016-07-25 14:28] LABS: ALANINE AMINOTRANSFERASE 59 U/L (9-52); ALBUMIN 3.9 g/dL (3.5-5.0); ALKALINE PHOSPHATASE 238 U/L (38-126); ANION GAP 13 (5-19); ASPARTATE AMINO TRANSFERASE 61 U/L (14-36); BILIRUBIN,TOTAL 1.7 mg/dL (0.2-1.3); BLOOD UREA NITROGEN 17 mg/dL (7-20); CALCIUM 10.2 mg/dL (8.4-10.2); CARBON DIOXIDE 22 mmol/L (22-30); CHLORIDE 103 mmol/L (98-107); CREATINE KINASE 41 U/L (30-135); CREATININE RESULT 0.83 mg/dL (0.52-1.25); GLUCOSE 121 mg/dL (75-110); POTASSIUM 3.7 mmol/L (3.6-5.0); SODIUM 137.7 mmol/L (137-145)
[2016-07-25 14:40] LABS: CREATINE KINASE MB 0.42 ng/mL (<4.55); TROPONIN I < 0.012 ng/mL
[2016-07-25] MEDS ORDERED: CEFTRIAXONE 1 GM/D5W RTU 50 ML IV ONE (15:51)
[2016-07-25] MEDS ORDERED: AZITHROMYCIN INJ 500 MG VIAL IV ONE (15:51)
--- NOTE | 2016-07-25 15:51 | ER Document Report ---
ED General - General Chief Complaint: Chest Pain Stated Complaint: CHEST PAIN Time seen by provider: 15:50 Mode of Arrival: Ambulatory Information source: Patient Notes: Physical exam: GENERAL: 76-year-old female, alert and oriented 3, no acute distress. HEAD: Atraumatic, normocephalic. EYES: Pupils equal round and reactive to light, extraocular movements intact, sclera anicteric, conjunctiva are normal. ENT: TMs normal, nares patent, oropharynx clear without exudates. Moist mucous membranes. NECK: Normal range of motion, supple without lymphadenopathy or JVD. LUNGS: Breath sounds clear to auscultation bilaterally and equal. No wheezes rales or rhonchi. HEART: Regular rate and rhythm without murmurs, rubs or gallops. ABDOMEN: Soft, hypoactive bowel sounds. Patient does have some tenderness to palpation without rebound or guarding. EXTREMITIES: Normal range of motion, no pitting or edema. No clubbing or cyanosis. NEUROLOGICAL: Cranial nerves II through XII grossly intact. Normal speech, normal gait. PSYCH: Normal mood, normal affect. SKIN: Warm, Dry, normal turgor, no rashes or lesions noted. TRAVEL OUTSIDE OF THE [place] IN LAST 30 DAYS: No - HPI Onset: Last week Onset/Duration: Gradual Quality of pain: Dull Severity: Moderate Pain Level: 2 Associated symptoms: Chills, Productive cough, Fever, Shortness of breath, Other - An abdominal pain Exacerbated by: denies: Denies, Supine, Sitting, Standing, Movement, Walking, Coughing, Deep breathing, Food, Other Relieved by: Supine Similar symptoms previously: Yes Recently seen / treated by doctor: Yes - Related Data Allergies/Adverse Reactions: ciprofloxacin [From Cipro] Allergy (Verified 07/25/16 13:14) Hives Home Medications: Current Home Medications Albuterol Sulfate [Proair HFA] 1 puff IH Q4HP PRN 07/25/16 [History] Aspirin [Aspirin 81 mg Chewable Tablet] 81 mg PO DAILY 07/25/16 [History] Famotidine [Pepcid 40 mg Tablet] 40 mg PO Q12 07/25/16 [History] Fluconazole [Diflucan] 150 mg PO DAILY 07/25/16 [History] Fluticasone Propionate [Flonase Nasal [place] 50 Mcg/[place] 16 gm] 1 spray NASL Q12 07/25/16 [History] Fluticasone/Salmeterol [Advair 500-50 Diskus 14 Dose/Diskus] 1 inh IH Q12 [History] Guar Gum [Benefiber] 1 each PO DAILY 07/25/16 [History] Melatonin 5 mg PO HSP PRN 07/25/16 [History] Montelukast Sodium [Singulair 10 mg Tablet] 10 mg PO QHS 07/25/16 [History] Prednisone [Deltasone 10 mg Tablet] 10 mg PO DAILY 07/25/16 [History] Vitamin B Complex [B Complex] 1 each PO DAILY 07/25/16 [History] Past Medical History - General Information source: Patient - Social History Smoking Status: Never Smoker Cigarette use (# per day): No Chew tobacco use (# tins/day): No Frequency of alcohol use: None Drug Abuse: None Lives with: Family Family History: CAD, COPD, Hyperlipidemia, Malignancy - 10 siblings, multiple cancers. "Female" cancer, stomach cancer, breast cancer, bladder cancer, prostate cancer, non-Hodgkin's lymphoma, lung cancer, leukemia. Patient has suicidal ideation: No Patient has homicidal ideation: No - Past Medical History Cardiac Medical History: Reports: Hx Hypercholesterolemia, Hx Heart Murmur Denies: Hx Heart Attack, Hx Hypertension Comment Only: Hx Congestive Heart Failure - She is being tested to see if she has this Pulmonary Medical History: Reports: Hx Asthma, Hx Bronchitis, Hx COPD, Hx Pneumonia Denies: Hx Tuberculosis Neurological Medical History: Denies: Hx Seizures Endocrine Medical History: Reports: Hx Diabetes Mellitus Type 2 - When necessary insulin for steroid induced hypoglycemia. Renal/ Medical History: Denies: Hx Peritoneal Dialysis GI Medical History: Reports: Hx Diverticulitis, Hx Gastroesophageal Reflux Disease, Hx Hiatal Hernia, Hx Irritable Bowel, Hx Ulcer. Denies: Hx Cirrhosis, Hx Hepatitis Musculoskeltal Medical History: Reports Hx Arthritis Psychiatric Medical History: Reports: Hx Depression - Some appropriate transient depression after her son 2 years ago. Denies: Hx Anxiety - Patient denies history of anxiety Infectious Medical History: Denies: Hx Hepatitis Past Surgical History: Reports: Hx Abdominal Surgery - 3 ex-laops with lysis of adhesions for SBO, Hx Appendectomy, Hx Bowel Surgery, Hx Cholecystectomy, Hx Gynecologic Surgery - hysterectomy, Hx Hysterectomy, Hx Orthopedic Surgery - Right hand, Hx Tonsillectomy, Other - Partial colectomy, Exploratory laparoscopy with lysis of adhesions 3 - Immunizations Hx Diphtheria, Pertussis, Tetanus Vaccination: Yes Hx Pneumococcal Vaccination: 06/08/08 Review of Systems - Review of Systems Constitutional: Chills, Fever EENT: No symptoms reported Cardiovascular: No symptoms reported Respiratory: See HPI Gastrointestinal: See HPI Genitourinary: No symptoms reported Female Genitourinary: No symptoms reported Musculoskeletal: No symptoms reported Skin: No symptoms reported Hematologic/Lymphatic: No symptoms reported Neurological/Psychological: No symptoms reported Physical Exam - Vital signs Vitals: Temp Pulse Resp BP Pulse Ox 98.4 F 98 20 112/65 96 07/25/16 13:14 07/25/16 13:14 07/25/16 13:14 07/25/16 13:14 07/25/16 13:14 Notes: Physical exam: GENERAL: 76-year-old female, alert and oriented 3, appears short of breath. HEAD: Atraumatic, normocephalic. EYES: Pupils equal round and reactive to light, extraocular movements intact, sclera anicteric, conjunctiva are normal. ENT: TMs normal, nares patent, oropharynx clear without exudates. Moist mucous membranes. NECK: Normal range of motion, supple without lymphadenopathy or JVD. LUNGS: Bilateral wheezing, accessory muscle use HEART: Regular rate and rhythm without murmurs, rubs or gallops. ABDOMEN: He shouldn't does have tenderness to palpation which is generalized, she has good bowel sounds and her abdomen is soft and nondistended, she has no rebound or guarding or evidence of peritonitis. EXTREMITIES: Normal range of motion, no pitting or edema. No clubbing or cyanosis. NEUROLOGICAL: Cranial nerves II through XII grossly intact. Normal speech, normal gait. PSYCH: Normal mood, normal affect. SKIN: Warm, Dry, normal turgor, no rashes or lesions noted. Course - Re-evaluation Re-evalutation: 07/25/16 20:52 Note: The patient does have bilateral pneumonia on x-ray. This is consistent with her presentation of fever (101.7), shortness of breath, productive cough for the past day. Additionally, she has had chronic abdominal pain. She does have a history of a number of surgeries and has had an SBO in the past. There is no evidence of obstruction at this point. Her abdomen is soft and is without any type of peritoneal findings. It is possible that the patient has some adhesions causing pain. In any event, the patient has had this pain for a long time. - Vital Signs Vital signs: Temp Pulse Resp BP Pulse Ox 98.4 F 98 22 H 107/47 L 95 07/25/16 13:14 07/25/16 13:14 07/25/16 18:01 07/25/16 18:01 07/25/16 18:01 - Laboratory Result Diagrams: 07/25/16 11:34 07/25/16 11:34 Laboratory results interpreted by me: 07/25/16 07/25/16 11:34 11:34 WBC 14.3 H Hgb 10.4 L Hct 31.8 L MCH 26.5 L RDW 14.9 H Seg Neutrophils % 84.5 H Lymphocytes % 8.0 L Absolute Neutrophils 12.1 H Glucose 121 H Total Bilirubin 1.7 H AST 61 H ALT 59 H Alkaline Phosphatase 238 H - Diagnostic Test Radiology reviewed: Image reviewed, Reports reviewed - Multifocal pneumonia Critical Care Note - Critical Care Note Total time excluding time spent on procedures (mins): 60 Discharge - Discharge Clinical Impression: bilateral pneumonia Condition: Stable Disposition: ADMITTED INPATIENT Admitting Provider: Hospitalist - Dr. canales Unit Admitted: Telemetry
[2016-07-25] MEDS ORDERED: ONDANSETRON HCL INJ/PF 4 MG/2 ML SDV IV PRN (17:46)
[2016-07-25] MEDS ORDERED: ACETAMINOPHEN 325 MG TABLET PO PRN (17:46)
[2016-07-25] MEDS ORDERED: OXYCODONE HCL IR 5 MG TABLET PO PRN (17:55)
[2016-07-25] MEDS ORDERED: INSULIN REG, HUMAN 100 UNIT/ML 3 ML VIAL (PYX) SUBCUT PRN (17:57)
[2016-07-25] MEDS ORDERED: DEXTROSE 40% GEL 15 GM TUBE PO PRN ×2 (17:57)
[2016-07-25] MEDS ORDERED: DEXTROSE 50%-WATER 25 GM/50 ML DISP.SYRIN IV PRN ×2 (17:57)
[2016-07-25] MEDS ORDERED: GLUCAGON,HUMAN RECOMB 1 MG INJ IM PRN (17:57)
--- NOTE | 2016-07-25 18:03 | EKG REPORT ---
SEVERITY:- ABNORMAL ECG - SINUS RHYTHM LEFT ANTERIOR FASCICULAR BLOCK LVH WITH SECONDARY REPOLARIZATION ABNORMALITY : Confirmed by: Sandra Martino 25-Jul-2016 18:01:09
--- NOTE | 2016-07-25 18:16 | PDOC H&P ---
History of Present Illness Admission Date/PCP: MELINA ARMIJO DO Patient complains of: Abdominal pain and cough History of Present Illness: BRIE MERCADO is a 76 year old female who has a history of COPD as well as diabetes who presents with a several day history of a cough productive of some green sputum. Patient also has had some sharp stabbing chest pain started 2 days ago. Patient denies any orthopnea or PND. She also complains of epigastric and periumbilical pain. Patient was had this pain off and on for the last several years. She reports that over the last month she's had nausea and vomiting has lost 14 pounds. The patient reports that she is unable to eat very much because she develops pain in her abdomen. Patient has a history of multiple abdominal surgeries and has had small bowel obstruction surgery with adhesional lysis 3. Patient reports that her last bowel movement was this morning but it was a very small bowel movement. Patient takes laxatives and occasional enemas when she is unable to move her bowels. The patient reports that she over the last several days had fever up to 101.7 and has had a cough with productive green sputum. Patient was on chest x-ray found to have bilateral pneumonia. Past Medical History Cardiac Medical History: Reports: Hyperlipidema, Heart Murmur Denies: Myocardial Infarction, Hypertension Comment Only: Congestive Heart Failure - She is being tested to see if she has this Pulmonary Medical History: Reports: Asthma, Bronchitis, Chronic Obstructive Pulmonary Disease (COPD), Pneumonia Denies: Tuberculosis Neurological Medical History: Reports: None Denies: Seizures Endocrine Medical History: Reports: Diabetes Mellitus Type 2 - When necessary insulin for steroid induced hypoglycemia. Renal/ Medical History: Reports: None Malignancy Medical History: Reports: None GI Medical History: Reports: Diverticulitis, Gastroesophageal Reflux Disease, Hiatal Hernia, Other - Multiple abdominal surgeries for small bowel obstruction. Denies: Cirrhosis, Hepatitis Musculoskeltal Medical History: Reports: Arthritis Skin Medical History: Reports: None Psychiatric Medical History: Reports: Depression - Some appropriate transient depression after her son 2 years ago. Traumatic Medical History: Reports: None Hematology: Reports: Anemia Infectious Medical History: Reports: None Past Surgical History Past Surgical History: Reports: Appendectomy, Cholecystectomy, Hysterectomy, Orthopedic Surgery - Right hand, Tonsillectomy, Other - Partial colectomy, Exploratory laparoscopy with lysis of adhesions 3 Social History Information Source: Patient Lives with: Alone Smoking Status: Never Smoker Frequency of Alcohol Use: None Hx Recreational Drug Use: No Drugs: None Hx Prescription Drug Abuse: No - Advance Directive Resuscitation Status: Full Code Surrogate healthcare decision maker:: The patient's sister Yasmeen is her surrogate decision maker. Family History Family History: CAD, COPD, Hyperlipidemia, Malignancy - 10 siblings, multiple cancers. "Female" cancer, stomach cancer, breast cancer, bladder cancer, prostate cancer, non-Hodgkin's lymphoma, lung cancer, leukemia. Family History: Mother lived to be 84 and had coronary artery disease and diabetes as well as a CVA. Father at age 96 with a CVA. Parental Family History Reviewed: Yes Children Family History Reviewed: No Sibling(s) Family History Reviewed.: No Medication/Allergy Home Medications: Albuterol Sulfate [Proair HFA] 1 puff IH Q4HP PRN 06/11/16 Aspirin [Aspirin 81 mg Chewable Tablet] 81 mg PO DAILY 06/11/16 Benzonatate 100 mg PO Q6HP PRN 06/11/16 Budesonide/Formoterol Fumarate [Symbicort HFA 160-4.5 mcg Inhaler 6 gm] 2 puff IH BID 06/11/16 Famotidine 40 mg PO BID 06/11/16 Melatonin/Pyridoxine HCl (B6) [Melatonin 5 mg Tablet] 5 mg PO HSP PRN 06/11/16 Montelukast Sodium 10 mg PO QPM 06/11/16 Rosuvastatin Calcium [Crestor 20 mg Tablet] 20 mg PO ACHS 06/11/16 Cyclosporine 0.05% Oph Emulsio [Restasis 0.05% Oph Emulsion Pf 0.4 ml] 1 drop OU DAILY droperette 06/16/16 Fluticasone/Salmeterol [Advair 500-50 Diskus 14 Dose/Diskus] 1 inh IH Q12A inhaler 06/16/16 Calcium Carbonate/Simethicone [[place] Heartburn+Gas] 1 tab PO ASDIR PRN Cholecalciferol (Vitamin D3) [Vitamin D3 1000 Unit Tablet] 1,000 unit PO DAILY 06/19/16 Fluticasone Propionate [Flonase Nasal [place] 50 Mcg/[place] 16 gm] 1 spray NASL Q12 06/19/16 Multivits-Min/Iron/FA/Lutein [Centrum Silver Women Tablet] 1 tab PO DAILY Sennosides 8.6 mg PO ASDIR PRN 06/19/16 Wheat Dextrin [Benefiber] 144 gm PO BID #1 powder 06/21/16 Allergies/Adverse Reactions: ciprofloxacin [From Cipro] Allergy (Verified 07/25/16 13:14) Hives Review of Systems Constitutional: PRESENT: fever(s), weight loss. ABSENT: chills, headache(s) Eyes: ABSENT: visual disturbances Ears: ABSENT: hearing changes Cardiovascular: PRESENT: chest pain, dyspnea on exertion. ABSENT: edema, orthropnea, palpitations Respiratory: PRESENT: as per HPI Gastrointestinal: PRESENT: as per HPI Genitourinary: ABSENT: dysuria, hematuria Musculoskeletal: ABSENT: joint swelling Integumentary: ABSENT: rash, wounds Neurological: ABSENT: abnormal gait, abnormal speech, confusion, dizziness, focal weakness, syncope Psychiatric: ABSENT: anxiety, depression Endocrine: ABSENT: cold intolerance, heat intolerance, polydipsia, polyuria Physical Exam Vital Signs: Temp Pulse Resp BP Pulse Ox 98.4 F 98 23 H 112/65 97 07/25/16 13:14 07/25/16 13:14 07/25/16 16:24 07/25/16 13:14 07/25/16 16:24 Intake & Output 07/24/16 07/25/16 07/26/16 06:59 06:59 06:59 Weight 61.689 kg General appearance: PRESENT: no acute distress, well-developed, well-nourished Head exam: PRESENT: atraumatic, normocephalic Eye exam: PRESENT: conjunctiva pink, EOMI, PERRLA. ABSENT: scleral icterus Ear exam: PRESENT: normal external ear exam Mouth exam: PRESENT: moist, tongue midline Neck exam: ABSENT: carotid bruit, JVD, lymphadenopathy, thyromegaly Respiratory exam: PRESENT: rhonchi - Coarse rhonchi bilaterally.. ABSENT: rales , wheezes Cardiovascular exam: PRESENT: RRR. ABSENT: diastolic murmur, rubs, systolic murmur Pulses: PRESENT: normal dorsalis pedis pul Vascular exam: PRESENT: normal capillary refill GI/Abdominal exam: PRESENT: normal bowel sounds, tenderness - Mild epigastric and periumbilical tenderness but no guarding or rebound.. ABSENT: distended, guarding, mass, organolmegaly, rebound Rectal exam: PRESENT: heme (-) stool - Per the emergency room physician Extremities exam: PRESENT: full ROM. ABSENT: calf tenderness, clubbing, pedal edema Neurological exam: PRESENT: alert, awake, oriented to person, oriented to place , oriented to time, oriented to situation, CN II-XII grossly intact. ABSENT: motor sensory deficit Psychiatric exam: PRESENT: appropriate affect Skin exam: PRESENT: dry, intact, warm. ABSENT: cyanosis, rash Results Laboratory Results: 07/25/16 11:34 07/25/16 11:34 07/25/16 07/25/16 11:34 11:34 WBC 14.3 H RBC 3.91 Hgb 10.4 L Hct 31.8 L MCV 81 MCH 26.5 L MCHC 32.6 RDW 14.9 H Plt Count 242 Seg Neutrophils % 84.5 H Lymphocytes % 8.0 L Monocytes % 6.6 Eosinophils % 0.6 Basophils % 0.3 Absolute Neutrophils 12.1 H Absolute Lymphocytes 1.1 Absolute Monocytes 0.9 Absolute Eosinophils 0.1 Absolute Basophils 0.0 Sodium 137.7 Potassium 3.7 Chloride 103 Carbon Dioxide 22 Anion Gap 13 BUN 17 Creatinine 0.83 Est GFR ( Amer) > 60 Est GFR (Non-Af Amer) > 60 Glucose 121 H Calcium 10.2 Total Bilirubin 1.7 H AST 61 H ALT 59 H Alkaline Phosphatase 238 H Total Protein 7.0 Albumin 3.9 07/25/16 07/25/16 11:34 11:34 Creatine Kinase 41 CK-MB (CK-2) 0.42 Troponin I < 0.012 Impressions: Chest X-Ray 07/25/16 13:16 IMPRESSION: 1. Findings suggesting multifocal pneumonia, most notable in the right upper lobe. Assessment & Plan - Diagnosis (1) Pneumonia Is this a current diagnosis for this admission?: YesPlan: The patient has community-acquired pneumonia most likely from gram-positive cocci. We'll treat with Rocephin and Zithromax. The patient also has come case of having COPD but does not have much the way wheezing. We will continue with inhalers we'll hold off on starting any IV steroids at this time. (2) Small bowel obstruction Is this a current diagnosis for this admission?: YesPlan: Patient sounds as she has a small bowel obstruction by her history and she has a history of adhesional lysis 3. Will give a full liquid diet overnight and IV fluids. If she still having abdominal pain tomorrow morning we will consult surgery further evaluation. (3) Elevated LFTs Is this a current diagnosis for this admission?: YesPlan: Given the multilobar pneumonia she most likely has atypical infection as the cause for her pneumonia and this can sometimes get elevated LFTs. We'll continue to monitor closely. (4) Chronic obstructive pulmonary disease (COPD) Qualifiers: Emphysema type: unspecified Is this a current diagnosis for this admission?: YesPlan: Patient has no wheezing on exam today. We'll continue with the inhalers. (5) Diabetes mellitus type 2 in nonobese Is this a current diagnosis for this admission?: YesPlan: We'll cover with sliding scale insulin. (6) Hyperlipemia Qualifiers: Hyperlipidemia type: pure hypercholesterolemia Qualified Code(s): E78.00 - Pure hypercholesterolemia, unspecified; E78.0 - Pure hypercholesterolemia Is this a current diagnosis for this admission?: YesPlan: She has been on Crestor as an outpatient. - Time Time Spent: 50 to 70 Minutes - Inpatient Certification Medical Necessity: Need For IV Fluids, Need for IV Antibiotics - Plan Summary Plan Summary: We'll admit as observation as I anticipate this will require less than a 2 midnight hospital stay.
[2016-07-25] MEDS ORDERED: ENOXAPARIN SODIUM INJ 40 MG/0.4 ML DISP.SYRIN SUBCUT ONE (19:00)
[2016-07-25] MEDS: MONTELUKAST SODIUM 10 MG TABLET PO SCH (19:59)
[2016-07-25] MEDS: ALBUTEROL SULFATE 0.083% NEB 2.5 MG/3 ML AMPUL NEB PRN (21:24)
[2016-07-25] MEDS: AZITHROMYCIN 500 MG in DEXTROSE 5%-WATER 250 ML IV SCH (21:56)
[2016-07-25] MEDS: NORMAL SALINE 1000 ML 1,000 ML IV PRN (21:57)
[2016-07-25] MEDS: FAMOTIDINE 20 MG TABLET PO SCH (21:58)
[2016-07-25] MEDS: FLUTICASONE/SALMETEROL DISKUS 500-50 MCG/DOSE IH SCH (21:59)
[2016-07-26 04:42] LABS: HEMATOCRIT 27.2 % (36.0-47.0); HEMOGLOBIN 9.1 g/dL (12.0-15.5); HGB HCT DIFFERENCE 0.1; MEAN CORPUSCULAR HGB CONC 33.4 g/dL (32.0-36.0); MEAN CORPUSCULAR VOLUME 81 fl (80-97); RED BLOOD COUNT 3.37 10^6/uL (3.72-5.28); RED CELL DISTRIBUTION WIDTH 14.5 % (11.5-14.0); WHITE BLOOD COUNT 10.3 10^3/uL (4.0-10.5)
[2016-07-26 04:58] LABS: ANION GAP 9 (5-19); BLOOD UREA NITROGEN 11 mg/dL (7-20); CALCIUM 9.3 mg/dL (8.4-10.2); CARBON DIOXIDE 22 mmol/L (22-30); CHLORIDE 103 mmol/L (98-107); CREATININE RESULT 0.79 mg/dL (0.52-1.25); GLUCOSE 96 mg/dL (75-110); POTASSIUM 3.7 mmol/L (3.6-5.0); SODIUM 133.8 mmol/L (137-145)
[2016-07-26] MEDS: ALBUTEROL SULFATE 0.083% NEB 2.5 MG/3 ML AMPUL NEB PRN ×2 (10:23→19:22)
[2016-07-26] MEDS: FLUTICASONE/SALMETEROL DISKUS 500-50 MCG/DOSE IH SCH ×2 (10:50→21:42)
[2016-07-26] MEDS: ENOXAPARIN SODIUM INJ 40 MG/0.4 ML DISP.SYRIN SUBCUT SCH (10:50)
[2016-07-26] MEDS: CHOLECALCIFEROL (D3) 1,000 UNIT TABLET PO SCH (10:51)
[2016-07-26] MEDS: FAMOTIDINE 20 MG TABLET PO SCH ×2 (10:51→21:42)
[2016-07-26] MEDS: ASPIRIN 81 MG TABLET, CHEWABLE PO SCH (10:51)
[2016-07-26] MEDS: METOCLOPRAMIDE HCL INJ/PF 10 MG/2 ML SDV IV SCH ×2 (13:04→17:39)
[2016-07-26] MEDS: METHYLPREDNISOLONE INJ 40 MG/1 ML SDV IV SCH ×2 (13:04→21:42)
--- NOTE | 2016-07-26 15:05 | PDOC PROGRESS REPORT ---
Subjective Progress Note for:: 07/26/16 Subjective:: Continues to complain of abdominal pain but it is improved. She also now has started complaining of wheezing. Physical Exam Vital Signs: Temp Pulse Resp BP Pulse Ox 99.1 F 94 20 104/40 L 98 07/26/16 10:56 07/26/16 10:56 07/26/16 10:56 07/26/16 10:56 07/26/16 10:56 Intake & Output 07/25/16 07/26/16 07/27/16 06:59 06:59 06:59 Intake Total 700 Balance 700 General appearance: PRESENT: no acute distress Eye exam: PRESENT: conjunctiva pink. ABSENT: scleral icterus Mouth exam: PRESENT: moist, tongue midline Neck exam: ABSENT: JVD Respiratory exam: PRESENT: wheezes - Bilateral expiratory wheezes. ABSENT: accessory muscle use Cardiovascular exam: PRESENT: RRR. ABSENT: diastolic murmur, rubs, systolic murmur GI/Abdominal exam: PRESENT: normal bowel sounds, soft, tenderness - Mild diffuse tenderness but no guarding or rebound.. ABSENT: distended, guarding, mass, organolmegaly, rebound Extremities exam: ABSENT: calf tenderness, clubbing, pedal edema Neurological exam: PRESENT: alert, awake, oriented to person, oriented to place , oriented to time, oriented to situation Psychiatric exam: PRESENT: appropriate affect Skin exam: PRESENT: dry, intact, warm. ABSENT: cyanosis, rash Results Impressions: Chest X-Ray 07/25/16 13:16 IMPRESSION: 1. Findings suggesting multifocal pneumonia, most notable in the right upper lobe. Abdomen/Pelvis CT 07/25/16 17:05 IMPRESSION: NO ACUTE FINDINGS WITHIN THE ABDOMEN OR PELVIS. CHRONIC CHANGES ABOVE. KUB X-Ray 07/26/16 08:00 IMPRESSION: NO RADIOGRAPHIC EVIDENCE FOR ACUTE ABDOMINAL DISEASE. Assessment & Plan - Diagnosis (1) Pneumonia Is this a current diagnosis for this admission?: YesPlan: The patient has community-acquired pneumonia most likely from gram-positive cocci. We'll treat with Rocephin and Zithromax. The patient also has a history of COPD and she has begun wheezing overnight. We will start the patient on IV steroids (2) Small bowel obstruction Is this a current diagnosis for this admission?: YesPlan: Patient sounds as if she had a small bowel obstruction by her history, but her symptoms have improved, And she has a history of adhesional lysis 3. (3) Elevated LFTs Is this a current diagnosis for this admission?: YesPlan: Given the multilobar pneumonia she most likely has atypical infection as the cause for her pneumonia and this can sometimes get elevated LFTs. We'll continue to monitor closely. (4) Chronic obstructive pulmonary disease (COPD) Qualifiers: Emphysema type: unspecified Is this a current diagnosis for this admission?: YesPlan: She has developed wheezing overnight and we will start her on IV steroids in addition to her nebulizers. (5) Diabetes mellitus type 2 in nonobese Is this a current diagnosis for this admission?: YesPlan: We'll cover with sliding scale insulin. (6) Hyperlipemia Qualifiers: Hyperlipidemia type: pure hypercholesterolemia Qualified Code(s): E78.00 - Pure hypercholesterolemia, unspecified; E78.0 - Pure hypercholesterolemia Is this a current diagnosis for this admission?: YesPlan: She has been on Crestor as an outpatient. - Time Time Spent with patient: 25-34 minutes - Inpatient Certification Medical Necessity: Need Close Monitoring Due to Risk of Patient Decompensation, Need for IV Antibiotics
[2016-07-26] MEDS: CEFTRIAXONE 1 GM/D5W RTU 1 GM/50 ML RTUPB IV SCH (17:38)
[2016-07-26] MEDS: MONTELUKAST SODIUM 10 MG TABLET PO SCH (17:39)
[2016-07-26] MEDS: AZITHROMYCIN 500 MG in DEXTROSE 5%-WATER 250 ML IV SCH (21:42)
[2016-07-26] MEDS: NORMAL SALINE 1000 ML 1,000 ML IV PRN (21:49)
[2016-07-27] MEDS: METOCLOPRAMIDE HCL INJ/PF 10 MG/2 ML SDV IV SCH ×2 (01:04→06:05)
[2016-07-27 04:56] LABS: HEMATOCRIT 25.5 % (36.0-47.0); HEMOGLOBIN 8.6 g/dL (12.0-15.5); HGB HCT DIFFERENCE 0.3; MEAN CORPUSCULAR HEMOGLOBIN 27.3 pg (27.0-33.4); MEAN CORPUSCULAR HGB CONC 33.6 g/dL (32.0-36.0); MEAN CORPUSCULAR VOLUME 81 fl (80-97); RED BLOOD COUNT 3.14 10^6/uL (3.72-5.28); RED CELL DISTRIBUTION WIDTH 14.6 % (11.5-14.0); WHITE BLOOD COUNT 6.7 10^3/uL (4.0-10.5)
[2016-07-27 05:10] LABS: ANION GAP 10 (5-19); BLOOD UREA NITROGEN 8 mg/dL (7-20); CALCIUM 9.6 mg/dL (8.4-10.2); CARBON DIOXIDE 20 mmol/L (22-30); CHLORIDE 107 mmol/L (98-107); CREATININE RESULT 0.75 mg/dL (0.52-1.25); GLUCOSE 178 mg/dL (75-110); POTASSIUM 3.8 mmol/L (3.6-5.0); SODIUM 137.3 mmol/L (137-145)
[2016-07-27] MEDS: NORMAL SALINE 1000 ML 1,000 ML IV PRN (06:05)
[2016-07-27] MEDS: FAMOTIDINE 20 MG TABLET PO SCH ×2 (09:57→23:21)
[2016-07-27] MEDS: ASPIRIN 81 MG TABLET, CHEWABLE PO SCH (09:57)
[2016-07-27] MEDS: PREDNISONE 20 MG TABLET PO SCH (09:57)
[2016-07-27] MEDS: FLUTICASONE/SALMETEROL DISKUS 500-50 MCG/DOSE IH SCH ×2 (09:58→23:22)
[2016-07-27] MEDS: ENOXAPARIN SODIUM INJ 40 MG/0.4 ML DISP.SYRIN SUBCUT SCH (09:58)
[2016-07-27] MEDS: CHOLECALCIFEROL (D3) 1,000 UNIT TABLET PO SCH (09:58)
[2016-07-27] MEDS: METOCLOPRAMIDE HCL 10 MG TABLET PO SCH ×3 (12:01→23:21)
[2016-07-27] MEDS: MONTELUKAST SODIUM 10 MG TABLET PO SCH (17:08)
[2016-07-27] MEDS: CEFTRIAXONE 1 GM/D5W RTU 1 GM/50 ML RTUPB IV SCH (17:08)
--- NOTE | 2016-07-27 17:36 | PDOC PROGRESS REPORT ---
Subjective Progress Note for:: 07/27/16 Subjective:: Continues to complain of abdominal pain Physical Exam Vital Signs: Temp Pulse Resp BP Pulse Ox 98.0 F 70 17 121/51 L 97 07/27/16 16:15 07/27/16 16:15 07/27/16 16:15 07/27/16 16:15 07/27/16 16:15 Intake & Output 07/26/16 07/27/16 07/28/16 06:59 06:59 06:59 Intake Total 3131 1050 Balance 3131 1050 Weight 61.7 kg General appearance: PRESENT: no acute distress Eye exam: PRESENT: conjunctiva pink. ABSENT: scleral icterus Mouth exam: PRESENT: moist, tongue midline Neck exam: ABSENT: carotid bruit, JVD, lymphadenopathy, thyromegaly Respiratory exam: PRESENT: clear to auscultation valerie. ABSENT: rales, rhonchi, wheezes Cardiovascular exam: PRESENT: RRR. ABSENT: diastolic murmur, rubs, systolic murmur GI/Abdominal exam: PRESENT: normal bowel sounds, soft, tenderness - Minimal epigastric tenderness. ABSENT: distended, guarding, mass, organolmegaly, rebound Extremities exam: ABSENT: calf tenderness, clubbing, pedal edema Neurological exam: PRESENT: alert, awake, oriented to person, oriented to place , oriented to time, oriented to situation, CN II-XII grossly intact. ABSENT: motor sensory deficit Skin exam: PRESENT: dry, intact, warm. ABSENT: cyanosis, rash Results Laboratory Results: 07/27/16 04:25 07/27/16 04:25 07/27/16 07/27/16 04:25 04:25 WBC 6.7 RBC 3.14 L Hgb 8.6 L Hct 25.5 L MCV 81 MCH 27.3 MCHC 33.6 RDW 14.6 H Plt Count 175 Sodium 137.3 Potassium 3.8 Chloride 107 Carbon Dioxide 20 L Anion Gap 10 BUN 8 Creatinine 0.75 Est GFR ( Amer) > 60 Est GFR (Non-Af Amer) > 60 Glucose 178 H Calcium 9.6 Impressions: Chest X-Ray 07/25/16 13:16 IMPRESSION: 1. Findings suggesting multifocal pneumonia, most notable in the right upper lobe. Abdomen/Pelvis CT 07/25/16 17:05 IMPRESSION: NO ACUTE FINDINGS WITHIN THE ABDOMEN OR PELVIS. CHRONIC CHANGES ABOVE. KUB X-Ray 07/26/16 08:00 IMPRESSION: NO RADIOGRAPHIC EVIDENCE FOR ACUTE ABDOMINAL DISEASE. Assessment & Plan - Diagnosis (1) Pneumonia Is this a current diagnosis for this admission?: YesPlan: The patient has community-acquired pneumonia most likely from gram-positive cocci. We'll treat with Rocephin and Zithromax. The patient also has a history of COPD and is on steroids. (2) Small bowel obstruction Is this a current diagnosis for this admission?: YesPlan: Patient sounds as if she had a small bowel obstruction by her history, but her symptoms have improved. she has a history of adhesional lysis 3. She continues to have pain however and we will consult GI in the morning for evaluation. She has no evidence for obstruction at this time and has responded somewhat to Reglan. (3) Elevated LFTs Is this a current diagnosis for this admission?: YesPlan: Given the multilobar pneumonia she most likely has atypical infection as the cause for her pneumonia and this can sometimes get elevated LFTs. We'll continue to monitor closely. (4) Chronic obstructive pulmonary disease (COPD) Qualifiers: Emphysema type: unspecified Is this a current diagnosis for this admission?: YesPlan: She has been started on IV steroids in addition to her nebulizers. (5) Diabetes mellitus type 2 in nonobese Is this a current diagnosis for this admission?: YesPlan: We'll cover with sliding scale insulin. (6) Hyperlipemia Qualifiers: Hyperlipidemia type: pure hypercholesterolemia Qualified Code(s): E78.00 - Pure hypercholesterolemia, unspecified; E78.0 - Pure hypercholesterolemia Is this a current diagnosis for this admission?: YesPlan: She has been on Crestor as an outpatient. - Time Time Spent with patient: 25-34 minutes - Inpatient Certification Medical Necessity: Need for IV Antibiotics - Plan Summary Plan Summary: We'll ask GI to see in the morning. If they don't want to do further testing we will probably discharge home tomorrow.
[2016-07-27] MEDS: AZITHROMYCIN 500 MG in DEXTROSE 5%-WATER 250 ML IV SCH (23:23)
[2016-07-28] MEDS: NORMAL SALINE 1000 ML 1,000 ML IV PRN (03:04)
[2016-07-28] MEDS: ALBUTEROL SULFATE 0.083% NEB 2.5 MG/3 ML AMPUL NEB PRN ×3 (08:00→23:59)
[2016-07-28] MEDS: ASPIRIN 81 MG TABLET, CHEWABLE PO SCH (10:42)
[2016-07-28] MEDS: FAMOTIDINE 20 MG TABLET PO SCH ×2 (10:42→22:44)
[2016-07-28] MEDS: METOCLOPRAMIDE HCL 10 MG TABLET PO SCH ×4 (10:43→22:43)
[2016-07-28] MEDS: PREDNISONE 20 MG TABLET PO SCH (10:43)
[2016-07-28] MEDS: CHOLECALCIFEROL (D3) 1,000 UNIT TABLET PO SCH (10:43)
[2016-07-28] MEDS: FLUTICASONE/SALMETEROL DISKUS 500-50 MCG/DOSE IH SCH ×2 (10:43→22:42)
[2016-07-28] MEDS: ENOXAPARIN SODIUM INJ 40 MG/0.4 ML DISP.SYRIN SUBCUT SCH (10:43)
--- NOTE | 2016-07-28 13:40 | PDOC CONSULTATION ---
Consultation Consult Date: 07/28/16 Attending physician:: ISRRAEL OJEDA Consult reason:: asked to see patient for nausea and vomiting. negative CT scan. had previous surgery for small bowel obstruction. patient symptoms felt to be due to adhesions History of Present Illness Admission Date/PCP: 07/26/16 09:25 MELINA ARMIJO DO History of Present Illness: Patient has been admitted for several days. Her main complaint is one of nausea vomiting. She says that she does have some epigastric pain and tenderness. She states that immediately upon eating she has has symptoms and has to vomiting. She has seen Dr. Haywood in the past. Her previous colonoscopy was in 2014. She's had colon resection. She is known to have diverticulosis. Some small polyps were removed. But she has a patent colon to the small intestine. She's also had small bowel surgery in the past. She says several admissions that were felt to be due to adhesions. Symptoms seem to have improved a little bit. She was able to tolerate lunch. Her symptoms occur immediately postprandially. I feel that that's less likely to be due to distal small bowel obstruction as that would lead to significant amount of bloating after several hours. Her symptoms are fairly immediate, her pain and discomfort in the epigastric region. I suspect that she would need an upper endoscopy to rule out peptic ulcer disease. Her CT scan was negative. She denies any blood in the stools. She denies any melena. There is no significant weight loss. Past Medical History Cardiac Medical History: Reports: Hyperlipidema, Heart Murmur Denies: Myocardial Infarction, Hypertension Comment Only: Congestive Heart Failure - She is being tested to see if she has this Pulmonary Medical History: Reports: Asthma, Bronchitis, Chronic Obstructive Pulmonary Disease (COPD), Pneumonia Denies: Tuberculosis Neurological Medical History: Reports: None Denies: Seizures Endocrine Medical History: Reports: Diabetes Mellitus Type 2 - When necessary insulin for steroid induced hypoglycemia. Renal/ Medical History: Reports: None Malignancy Medical History: Reports: None GI Medical History: Reports: Diverticulitis, Gastroesophageal Reflux Disease, Hiatal Hernia, Other - Multiple abdominal surgeries for small bowel obstruction. Denies: Cirrhosis, Hepatitis Musculoskeltal Medical History: Reports: Arthritis Skin Medical History: Reports: None Psychiatric Medical History: Reports: Depression - Some appropriate transient depression after her son 2 years ago. Traumatic Medical History: Reports: None Hematology: Reports: Anemia Infectious Medical History: Reports: None Past Surgical History Past Surgical History: Reports: Appendectomy, Cholecystectomy, Hysterectomy, Orthopedic Surgery - Right hand, Tonsillectomy, Other - Partial colectomy, Exploratory laparoscopy with lysis of adhesions 3 Social History Lives with: Family Smoking Status: Never Smoker Frequency of Alcohol Use: None Hx Recreational Drug Use: No Drugs: None Hx Prescription Drug Abuse: No - Advance Directive Resuscitation Status: Full Code Family History Family History: CAD, COPD, Hyperlipidemia, Malignancy - 10 siblings, multiple cancers. "Female" cancer, stomach cancer, breast cancer, bladder cancer, prostate cancer, non-Hodgkin's lymphoma, lung cancer, leukemia. Parental Family History Reviewed: Yes Children Family History Reviewed: Unknown Sibling(s) Family History Reviewed.: Unknown Medication/Allergy Home Medications: Albuterol Sulfate [Proair HFA] 1 puff IH Q4HP PRN 07/25/16 Aspirin [Aspirin 81 mg Chewable Tablet] 81 mg PO DAILY 07/25/16 Famotidine [Pepcid 40 mg Tablet] 40 mg PO Q12 07/25/16 Fluticasone Propionate [Flonase Nasal [place] 50 Mcg/[place] 16 gm] 1 spray NASL Q12 07/25/16 Fluticasone/Salmeterol [Advair 500-50 Diskus 14 Dose/Diskus] 1 inh IH Q12 Guar Gum [Benefiber] 1 each PO DAILY 07/25/16 Melatonin 5 mg PO HSP PRN 07/25/16 Montelukast Sodium [Singulair 10 mg Tablet] 10 mg PO QHS 07/25/16 Vitamin B Complex [B Complex] 1 each PO DAILY 07/25/16 Cefuroxime Axetil [Ceftin 500 mg Tablet] 1 tab PO BID #20 tablet 07/28/16 Metoclopramide HCl [Reglan 10 mg Tablet] 10 mg PO ACHS #120 tablet 07/28/16 Oxycodone HCl [Oxy-Ir 5 mg Tablet] 5 mg PO Q6HP PRN #20 tablet 07/28/16 Prednisone [Deltasone 10 mg Tablet] 10 mg PO DAILY #60 tablet 07/28/16 Allergies/Adverse Reactions: ciprofloxacin [From Cipro] Allergy (Verified 07/25/16 13:14) Hives Review of Systems Constitutional: ABSENT: fever(s), headache(s), night sweats, weakness Eyes: ABSENT: visual disturbances Ears: ABSENT: hearing changes Nose, Mouth, and Throat: ABSENT: mouth pain, sore throat Cardiovascular: ABSENT: chest pain, dyspnea on exertion, orthropnea Respiratory: ABSENT: dyspnea, hemoptysis Gastrointestinal: PRESENT: heartburn, nausea, vomiting. ABSENT: coffee ground emesis, diarrhea, hematemesis, melena Genitourinary: ABSENT: dysuria, hematuria Musculoskeletal: ABSENT: deformity Integumentary: ABSENT: lesions, pruritus Neurological: ABSENT: syncope, tingling, tremor(s), vertigo Endocrine: ABSENT: polydipsia, polyphagia, polyuria Hematologic/Lymphatic: ABSENT: easy bruising Physical Exam Vital Signs: Temp Pulse Resp BP Pulse Ox 97.5 F 100 20 136/58 H 100 07/28/16 08:04 07/28/16 08:04 07/28/16 08:04 07/28/16 08:04 07/28/16 08:04 Intake & Output 07/27/16 07/28/16 07/29/16 06:59 06:59 06:59 Intake Total 3131 2775 Output Total 300 Balance 3131 2475 Weight 61.7 kg 61.7 kg General appearance: PRESENT: no acute distress, well-developed, well-nourished Head exam: PRESENT: atraumatic, normocephalic Eye exam: PRESENT: EOMI, PERRLA. ABSENT: nystagmus, periorbital swelling, scleral icterus Mouth exam: PRESENT: moist Throat exam: ABSENT: tonsillar exudate, tonsillogmegaly Neck exam: ABSENT: meningismus, tenderness, thyromegaly Respiratory exam: PRESENT: clear to auscultation valerie, symmetrical. ABSENT: tachypnea, unlabored, wheezes Cardiovascular exam: PRESENT: RRR, +S1, +S2. ABSENT: rubs Pulses: PRESENT: normal carotid pulses GI/Abdominal exam: PRESENT: soft. ABSENT: Killian's sign, rebound, rigid, tenderness Extremities exam: ABSENT: joint swelling Musculoskeletal exam: PRESENT: full ROM Neurological exam: PRESENT: alert, awake, oriented to person, oriented to place , oriented to time, oriented to situation, CN II-XII grossly intact Skin exam: PRESENT: normal color. ABSENT: mottled, pallor, petechiae, urticaria , vesicles Results Laboratory Results: 07/27/16 04:25 07/27/16 04:25 Impressions: Chest X-Ray 07/25/16 13:16 IMPRESSION: 1. Findings suggesting multifocal pneumonia, most notable in the right upper lobe. Abdomen/Pelvis CT 07/25/16 17:05 IMPRESSION: NO ACUTE FINDINGS WITHIN THE ABDOMEN OR PELVIS. CHRONIC CHANGES ABOVE. KUB X-Ray 07/26/16 08:00 IMPRESSION: NO RADIOGRAPHIC EVIDENCE FOR ACUTE ABDOMINAL DISEASE. Assessment & Plan - Diagnosis (1) Nausea & vomiting Plan: Her symptoms appear to be immediate following eating. It would be less likely to be a distal small bowel obstruction. She may have adhesions but usually the symptoms are typically not immediate. She may have peptic ulcer disease. She would benefit from an upper endoscopy and she's not had one. Risks benefits and alternatives of the procedure including risks of bleeding, perforation requiring surgery are explained to the patient detail informed consent is obtained further recommendations will be based upon findings. (2) Epigastric abdominal pain Plan: Could be peptic ulcer disease. Start Zofran and PPI (3) Colon polyps Plan: Surveillance colonoscopy in 3 years. (4) Diverticulosis large intestine w/o perforation or abscess w/bleeding Plan: Negative CT scan for diverticulitis. High-fiber diet. - Time Time Spent: 50 to 70 Minutes
--- NOTE | 2016-07-28 14:13 | PDOC PROGRESS REPORT ---
Subjective Progress Note for:: 07/28/16 Subjective:: Continues to complain of abdominal pain. The patient initially was going to be discharged home today however she vomited up her breakfast and the decision was made to have her seen by gastroenterology given her chronic abdominal pain and now difficulty tolerating by mouth. She has improved from a pulmonary standpoint with pneumonia and COPD and could be discharged home once her GI issues are worked out. Physical Exam Vital Signs: Temp Pulse Resp BP Pulse Ox 97.5 F 100 20 136/58 H 100 07/28/16 08:04 07/28/16 08:04 07/28/16 08:04 07/28/16 08:04 07/28/16 08:04 Intake & Output 07/27/16 07/28/16 07/29/16 06:59 06:59 06:59 Intake Total 3131 2775 Output Total 300 Balance 3131 2475 Weight 61.7 kg 61.7 kg General appearance: PRESENT: no acute distress Eye exam: PRESENT: conjunctiva pink. ABSENT: scleral icterus Ear exam: PRESENT: normal external ear exam Mouth exam: PRESENT: moist, tongue midline Neck exam: ABSENT: JVD Respiratory exam: PRESENT: clear to auscultation valerie. ABSENT: rales, rhonchi, wheezes Cardiovascular exam: PRESENT: RRR. ABSENT: diastolic murmur, rubs, systolic murmur GI/Abdominal exam: PRESENT: normal bowel sounds, soft, tenderness - Mild epigastric tenderness but no guarding or rebound.. ABSENT: distended, guarding , mass, organolmegaly, rebound Extremities exam: ABSENT: calf tenderness, clubbing, pedal edema Neurological exam: PRESENT: alert, awake, oriented to person, oriented to place , oriented to time, oriented to situation Psychiatric exam: PRESENT: appropriate affect Skin exam: PRESENT: dry, intact, warm. ABSENT: cyanosis, rash Results Laboratory Results: 07/27/16 04:25 07/27/16 04:25 Impressions: Chest X-Ray 07/25/16 13:16 IMPRESSION: 1. Findings suggesting multifocal pneumonia, most notable in the right upper lobe. Abdomen/Pelvis CT 07/25/16 17:05 IMPRESSION: NO ACUTE FINDINGS WITHIN THE ABDOMEN OR PELVIS. CHRONIC CHANGES ABOVE. KUB X-Ray 07/26/16 08:00 IMPRESSION: NO RADIOGRAPHIC EVIDENCE FOR ACUTE ABDOMINAL DISEASE. Assessment & Plan - Diagnosis (1) Pneumonia Is this a current diagnosis for this admission?: YesPlan: The patient has community-acquired pneumonia most likely from gram-positive cocci. The patient has received Rocephin and Zithromax. She is doing well enough that we can switch her over to by mouth Ceftin. Patient is on steroids for her COPD. (2) Small bowel obstruction Is this a current diagnosis for this admission?: YesPlan: Patient sounds as if she had a small bowel obstruction by her history, but her symptoms have improved. she has a history of adhesional lysis 3. She continues to have pain however and GI has seen the patient. She has no evidence for obstruction at this time and has responded somewhat to Reglan. GI is concerned given her decreasing hemoglobin and is planning on doing an EGD tomorrow morning. (3) Elevated LFTs Is this a current diagnosis for this admission?: YesPlan: Given the multilobar pneumonia she most likely has atypical infection as the cause for her pneumonia and this can sometimes get elevated LFTs. We'll continue to monitor closely. (4) Chronic obstructive pulmonary disease (COPD) Qualifiers: Emphysema type: unspecified Is this a current diagnosis for this admission?: YesPlan: She has been watched over to oral steroids from IV steroids. Will continue with the nebulizers. (5) Diabetes mellitus type 2 in nonobese Is this a current diagnosis for this admission?: YesPlan: We'll cover with sliding scale insulin. (6) Hyperlipemia Qualifiers: Hyperlipidemia type: pure hypercholesterolemia Qualified Code(s): E78.00 - Pure hypercholesterolemia, unspecified; E78.0 - Pure hypercholesterolemia Is this a current diagnosis for this admission?: YesPlan: She has been on Crestor as an outpatient. - Time Time Spent with patient: 25-34 minutes - Inpatient Certification Medical Necessity: Need Close Monitoring Due to Risk of Patient Decompensation - Plan Summary Plan Summary: The patient is to get an EGD done tomorrow by GI. She is stable from a pulmonary standpoint for discharge once the GI issues are resolved.
[2016-07-28] MEDS: MONTELUKAST SODIUM 10 MG TABLET PO SCH (19:09)
[2016-07-28] MEDS: CEFUROXIME 500 MG TABLET PO SCH (22:42)
[2016-07-29] MEDS: NORMAL SALINE 1000 ML 1,000 ML IV PRN (00:06)
[2016-07-29] MEDS: ALBUTEROL SULFATE 0.083% NEB 2.5 MG/3 ML AMPUL NEB PRN ×3 (05:37→19:30)
[2016-07-29 06:45] LABS: ABSOLUTE LYMPHOCYTES (AUTO) 1.1 10^3/uL (0.5-4.7); ABSOLUTE MONOCYTES (AUTO) 0.6 10^3/uL (0.1-1.4); BASOPHILS % (AUTO) 0.4 % (0-2); EOSINOPHILS % (AUTO) 0.2 % (0-6); HEMATOCRIT 24.8 % (36.0-47.0); HEMOGLOBIN 8.2 g/dL (12.0-15.5); HGB HCT DIFFERENCE -0.2; LYMPHOCYTES % (AUTO) 12.8 % (13-45); MEAN CORPUSCULAR HEMOGLOBIN 27.2 pg (27.0-33.4); MEAN CORPUSCULAR HGB CONC 33.1 g/dL (32.0-36.0); MEAN CORPUSCULAR VOLUME 82 fl (80-97); MONOCYTES % (AUTO) 7.4 % (3-13); RED BLOOD COUNT 3.02 10^6/uL (3.72-5.28); RED CELL DISTRIBUTION WIDTH 15.1 % (11.5-14.0); SEGMENTED NEUTROPHILS % (AUTO) 79.2 % (42-78); WHITE BLOOD COUNT 8.8 10^3/uL (4.0-10.5)
[2016-07-29 06:59] LABS: ANION GAP 11 (5-19); BLOOD UREA NITROGEN 20 mg/dL (7-20); CARBON DIOXIDE 16 mmol/L (22-30); CHLORIDE 114 mmol/L (98-107); CREATININE RESULT 0.78 mg/dL (0.52-1.25); GLUCOSE 102 mg/dL (75-110); POTASSIUM 3.8 mmol/L (3.6-5.0); SODIUM 140.7 mmol/L (137-145)
[2016-07-29 07:01] LABS: CALCIUM 9.8 mg/dL (8.4-10.2)
[2016-07-29] MEDS: METOCLOPRAMIDE HCL 10 MG TABLET PO SCH ×3 (09:36→15:59)
[2016-07-29] MEDS ORDERED: NALOXONE HCL INJ/PF 0.4 MG/1 ML SDV ONE (11:17)
[2016-07-29] MEDS ORDERED: DIPHENHYDRAMINE HCL 50 MG/ML VIAL ONE (11:17)
[2016-07-29] MEDS ORDERED: PROMETHAZINE HCL INJ 25 MG/1 ML VIAL ONE (11:18)
[2016-07-29] MEDS ORDERED: ONDANSETRON HCL INJ/PF 4 MG/2 ML SDV ONE (11:18)
[2016-07-29] MEDS ORDERED: EPINEPHRINE INJ 1 MG/10 ML DISP.SYRIN ONE (11:19)
[2016-07-29] MEDS ORDERED: GLUCAGON,HUMAN RECOMB 1 MG INJ ONE (11:19)
[2016-07-29] MEDS ORDERED: FENTANYL CITRATE INJ/PF 100 MCG/2 ML AMPUL ONE (11:19)
[2016-07-29] MEDS ORDERED: FLUMAZENIL INJ 0.5 MG/5 ML VIAL IV ONE (11:19)
[2016-07-29] MEDS: MIDAZOLAM 2 MG/2 ML INJ ONE ×2 (13:11→13:15)
--- NOTE | 2016-07-29 13:36 | Operative Report ---
Operative Report DATE OF SURGERY: 07/29/16 Operative Report: The risks benefits and alternatives of the procedure explained to the patient in detail and informed consent is obtained that GIF Olympus video scope was inserted into the patient's mouth and hypopharynx the esophagus is identified intubated and insufflated the scope was then advanced through the esophagus stomach and duodenum retroflexion maneuver is done the esophagus stomach and first and second portions of the duodenum examined PREOPERATIVE DIAGNOSIS: Nausea and vomiting POSTOPERATIVE DIAGNOSIS: Gastritis status post biopsy rule out Helicobacter pylori OPERATION: EGD with biopsy SURGEON: ISRRAEL OJEDA ANESTHESIA: Moderate Sedation - 3 mg of Versed, 50 g of fentanyl. TISSUE REMOVED OR ALTERED: Gastric specimen obtained rule out Helicobacter pylori COMPLICATIONS: None. ESTIMATED BLOOD LOSS: none. INTRAOPERATIVE FINDINGS: Gastritis status post biopsy. No ulcer. No dilatation of the small bowel noted PROCEDURE: Patient tolerated the procedure well. She sent back to her room in good condition. Diet can be resumed. She can be discharged if there are no further issues. She likely could have adhesions although repeat colonoscopy will need to be done as an outpatient.
[2016-07-29] MEDS: ENOXAPARIN SODIUM INJ 40 MG/0.4 ML DISP.SYRIN SUBCUT SCH (14:28)
[2016-07-29] MEDS: CEFUROXIME 500 MG TABLET PO SCH ×2 (14:30→22:04)
[2016-07-29] MEDS: PREDNISONE 20 MG TABLET PO SCH (14:31)
[2016-07-29] MEDS: ASPIRIN 81 MG TABLET, CHEWABLE PO SCH (14:31)
[2016-07-29] MEDS: CHOLECALCIFEROL (D3) 1,000 UNIT TABLET PO SCH (14:32)
[2016-07-29] MEDS: FAMOTIDINE 20 MG TABLET PO SCH ×2 (14:33→22:05)
[2016-07-29] MEDS: FLUTICASONE/SALMETEROL DISKUS 500-50 MCG/DOSE IH SCH ×2 (16:00→22:05)
--- NOTE | 2016-07-29 16:29 | PDOC PROGRESS REPORT ---
Subjective Progress Note for:: 07/29/16 Subjective:: Patient denies abdominal pain this time. Upper endoscopy showed gastritis. She now has been complaining of generalized weakness, but has been dealing with it for the past 2-1/2 years. She has chronic shortness of breath on exertion. Denies chest pain at this time. No nausea or vomiting. Sinus congestion intermittently. Intermittent wheezing reportedly on the upper airway rather than lower airway. Physical Exam Vital Signs: Temp Pulse Resp BP Pulse Ox 97.6 F 100 24 H 140/61 H 98 07/29/16 16:00 07/29/16 16:00 07/29/16 16:00 07/29/16 16:00 07/29/16 16:00 Intake & Output 07/28/16 07/29/16 07/30/16 06:59 06:59 06:59 Intake Total 2775 4690 200 Output Total 300 1200 Balance 2475 3490 200 Weight 61.7 kg 61.7 kg General appearance: PRESENT: mild distress, obese Head exam: PRESENT: normocephalic Eye exam: PRESENT: EOMI Mouth exam: PRESENT: moist, neck supple Neck exam: ABSENT: JVD Respiratory exam: PRESENT: wheezes - Expiratory bilateral. ABSENT: rhonchi Cardiovascular exam: PRESENT: RRR. ABSENT: gallop GI/Abdominal exam: PRESENT: hypoactive bowel sounds, soft. ABSENT: tenderness Extremities exam: ABSENT: pedal edema Neurological exam: PRESENT: alert, awake, oriented to situation Skin exam: PRESENT: dry, warm. ABSENT: cyanosis Results Laboratory Results: 07/29/16 06:27 07/29/16 06:27 07/29/16 07/29/16 06:27 06:27 WBC 8.8 RBC 3.02 L Hgb 8.2 L Hct 24.8 L MCV 82 MCH 27.2 MCHC 33.1 RDW 15.1 H Plt Count 223 Seg Neutrophils % 79.2 H Lymphocytes % 12.8 L Monocytes % 7.4 Eosinophils % 0.2 Basophils % 0.4 Absolute Neutrophils 7.0 Absolute Lymphocytes 1.1 Absolute Monocytes 0.6 Absolute Eosinophils 0.0 Absolute Basophils 0.0 Sodium 140.7 Potassium 3.8 Chloride 114 H Carbon Dioxide 16 L Anion Gap 11 BUN 20 Creatinine 0.78 Est GFR ( Amer) > 60 Est GFR (Non-Af Amer) > 60 Glucose 102 Calcium 9.8 Impressions: Chest X-Ray 07/25/16 13:16 IMPRESSION: 1. Findings suggesting multifocal pneumonia, most notable in the right upper lobe. Abdomen/Pelvis CT 07/25/16 17:05 IMPRESSION: NO ACUTE FINDINGS WITHIN THE ABDOMEN OR PELVIS. CHRONIC CHANGES ABOVE. KUB X-Ray 07/26/16 08:00 IMPRESSION: NO RADIOGRAPHIC EVIDENCE FOR ACUTE ABDOMINAL DISEASE. Assessment & Plan - Diagnosis (1) Pneumonia Qualifiers: Pneumonia type: due to unspecified organism Laterality: right Lung location: upper lobe of lung Qualified Code(s): J18.1 - Lobar pneumonia, unspecified organism Is this a current diagnosis for this admission?: Yes (2) Chronic obstructive pulmonary disease (COPD) Qualifiers: Emphysema type: unspecified Is this a current diagnosis for this admission?: Yes (3) Gastritis Qualifiers: Gastritis type: unspecified gastritis Chronicity: unspecified Gastritis bleeding: presence of bleeding unspecified Qualified Code(s): K29.70 - Gastritis, unspecified, without bleeding Is this a current diagnosis for this admission?: Yes (4) Shortness of breath on exertion Is this a current diagnosis for this admission?: Yes (5) Generalized weakness Is this a current diagnosis for this admission?: Yes (6) Diverticulosis large intestine w/o perforation or abscess w/bleeding Is this a current diagnosis for this admission?: Yes (7) Diabetes mellitus type 2 in nonobese Is this a current diagnosis for this admission?: Yes (8) Hyperlipemia Qualifiers: Hyperlipidemia type: pure hypercholesterolemia Qualified Code(s): E78.00 - Pure hypercholesterolemia, unspecified; E78.0 - Pure hypercholesterolemia Is this a current diagnosis for this admission?: Yes (9) GERD (gastroesophageal reflux disease) Qualifiers: Esophagitis presence: without esophagitis Qualified Code(s): K21.9 - Gastro-esophageal reflux disease without esophagitis Is this a current diagnosis for this admission?: Yes (10) Hiatal hernia Is this a current diagnosis for this admission?: Yes - Time Time Spent with patient: 25-34 minutes - Plan Summary Plan Summary: Obtain CT angiogram of the chest and echocardiogram. Consult cardiology. Patient reporting she thinks it is her heart, although she has seen count team clerk outpatient reportedly that it was her lungs. We will have physical therapy got involved as well. Continue other medications and supportive care.
--- NOTE | 2016-07-29 20:15 | PDOC CONSULTATION ---
Consultation Consult Date: 07/29/16 Attending physician:: WARD DAMIAN Consult reason:: Shortness of breath History of Present Illness Admission Date/PCP: 07/26/16 09:25 MELINA ARMIJO DO Patient complains of: Shortness of breath History of Present Illness: Patient has been admitted for several days. Her main complaint is shortness of breath. Patient describes having had a stress test more than a year ago and this was negative. She claims that her shortness of breath happens on minimal exertion and has been progressively getting worse. The shortness of breath started about 3 years ago after the of her son. Patient denied ever having a heart catheterization or any heart attacks. She denied any sustained palpitations, syncope, near syncope. Patient does have significant GI related symptoms which she is being evaluated by miller apprentice. Patient has seen editor in chief newspaper and chlorinator operator in the past but claims that they have not been able to figure out what's causing her shortness of breath. Patient did admit to being depressed since her son . Past Medical History Cardiac Medical History: Reports: Hyperlipidema, Heart Murmur Denies: Myocardial Infarction, Hypertension Comment Only: Congestive Heart Failure - She is being tested to see if she has this Pulmonary Medical History: Reports: Asthma, Bronchitis, Chronic Obstructive Pulmonary Disease (COPD), Pneumonia Denies: Tuberculosis Neurological Medical History: Reports: None Denies: Seizures Endocrine Medical History: Reports: Diabetes Mellitus Type 2 - When necessary insulin for steroid induced hypoglycemia. Renal/ Medical History: Reports: None Malignancy Medical History: Reports: None GI Medical History: Reports: Diverticulitis, Gastroesophageal Reflux Disease, Hiatal Hernia, Other - Multiple abdominal surgeries for small bowel obstruction. Denies: Cirrhosis, Hepatitis Musculoskeltal Medical History: Reports: Arthritis Skin Medical History: Reports: None Psychiatric Medical History: Reports: Depression - Some appropriate transient depression after her son 2 years ago. Traumatic Medical History: Reports: None Hematology: Reports: Anemia Infectious Medical History: Reports: None Past Surgical History Past Surgical History: Reports: Appendectomy, Cholecystectomy, Hysterectomy, Orthopedic Surgery - Right hand, Tonsillectomy, Other - Partial colectomy, Exploratory laparoscopy with lysis of adhesions 3 Social History Information Source: Patient Lives with: Family Smoking Status: Never Smoker Frequency of Alcohol Use: None Hx Recreational Drug Use: No Drugs: None Hx Prescription Drug Abuse: No - Advance Directive Resuscitation Status: Full Code Surrogate healthcare decision maker:: Patient's son and sister Family History Family History: CAD, COPD, Hyperlipidemia, Malignancy - 10 siblings, multiple cancers. "Female" cancer, stomach cancer, breast cancer, bladder cancer, prostate cancer, non-Hodgkin's lymphoma, lung cancer, leukemia. Parental Family History Reviewed: Yes Children Family History Reviewed: Yes Sibling(s) Family History Reviewed.: Yes - Family history of CAD but not premature. There is family history of cancer. Medication/Allergy Home Medications: Albuterol Sulfate [Proair HFA] 1 puff IH Q4HP PRN 07/25/16 Aspirin [Aspirin 81 mg Chewable Tablet] 81 mg PO DAILY 07/25/16 Famotidine [Pepcid 40 mg Tablet] 40 mg PO Q12 07/25/16 Fluticasone Propionate [Flonase Nasal [place] 50 Mcg/[place] 16 gm] 1 spray NASL Q12 07/25/16 Fluticasone/Salmeterol [Advair 500-50 Diskus 14 Dose/Diskus] 1 inh IH Q12 Guar Gum [Benefiber] 1 each PO DAILY 07/25/16 Melatonin 5 mg PO HSP PRN 07/25/16 Montelukast Sodium [Singulair 10 mg Tablet] 10 mg PO QHS 07/25/16 Vitamin B Complex [B Complex] 1 each PO DAILY 07/25/16 Cefuroxime Axetil [Ceftin 500 mg Tablet] 1 tab PO BID #20 tablet 07/28/16 Metoclopramide HCl [Reglan 10 mg Tablet] 10 mg PO ACHS #120 tablet 07/28/16 Oxycodone HCl [Oxy-Ir 5 mg Tablet] 5 mg PO Q6HP PRN #20 tablet 07/28/16 Prednisone [Deltasone 10 mg Tablet] 10 mg PO DAILY #60 tablet 07/28/16 Allergies/Adverse Reactions: ciprofloxacin [From Cipro] Allergy (Verified 07/25/16 13:14) Trina Review of Systems Review of Systems: Please see history of present illness and past medical history as wall. Constitutional: No fever or chills reported. Head : No recent chronic headaches, recent head injury. Eyes: No recent eye pain, diplopia, redness, discharge, acute visual changes. Ears: No recent chronic ear pain, acute hearing loss, ear discharge. Oral cavity: No recent ulcerations, bleeding, oral cavity discomfort. Neck: No recent acute neck pain reported. Hematologic: No recent easy bruising or bleeding or hematologic malignancy reported. Lymphatic: No recent lymphatic malignancy, chronic lymphadenopathy reported yet Cardiovascular system review: See history of present illness. Respiratory system review: No recent chronic cough, hemoptysis, blood clots in the lungs reported. Mild Shortness of breath on exertion Gastrointestinal system review: Patient describes multiple colonoscopies, chronic abdominal pain but denied any recent hematemesis, melena, bright red blood per rectum or any significant weight loss. She does claim however weight loss in the past. Genitourinary system review: No recent acute or chronic hematuria, flank pain, UTI etc. reported. Skin system review: Negative for any recent abnormal bruising, no rash, no pruritus reported. Neurologic: No prior history of strokes, mini strokes, seizure disorder. Psychologic: No history of major psychosis or depression reported. History of minor depression reported Musculoskeletal: Minor aches and pains reported. No acute joint swelling reported. Endocrine: No recent polyuria, polydipsia, recent heat or cold intolerance. Physical Exam Vital Signs: Temp Pulse Resp BP Pulse Ox 97.6 F 100 24 H 140/61 H 98 07/29/16 16:00 07/29/16 16:00 07/29/16 16:00 07/29/16 16:00 07/29/16 16:00 Intake & Output 07/28/16 07/29/16 07/30/16 06:59 06:59 06:59 Intake Total 2775 4690 980 Output Total 300 1200 300 Balance 2475 3490 680 Weight 61.7 kg 61.7 kg Exam: GENERAL: well-nourished and in no acute distress. Alert and oriented x3 HEAD: Atraumatic, normocephalic. EYES: Pupils equal round and reactive to light, extraocular movements intact, sclera anicteric, conjunctiva are normal. ENT: TMs normal, nares patent, oropharynx clear without exudates. Moist mucous membranes. No oral ulcerations or bleeding gums noted NECK: supple without lymphadenopathy. Trachea is central. No cervical or axillary lymphadenopathy noted. Carotids are 2+, JVD WNL LUNGS: Respiration seems nonlabored, no significant accessory muscle action noted. Bilateral mild wheezes rales or rhonchi noted. However the seems to be upper respiratory related, laryngeal spasm suspected. No significant dullness noted on percussion. CHEST: Palpation of the chest wall shows no significant chest wall tenderness. No other significant abnormalities noted. 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 ABDOMEN: Soft, no significant tenderness appreciated, normoactive bowel sounds. No guarding, no rebound. No rigidity noted . No masses appreciated. EXTREMITIES: Pedal pulses are 1-2+, no calf tenderness noted. No clubbing or cyanosis.trace to 1+ pedal edema noted NEUROLOGICAL: Focused neurological exam showed no significant neurologic deficit. Normal speech, no focal weakness appreciated. PSYCH: Normal mood, normal affect. Judgment and insight within normal limits. SKIN: No significant ecchymosis, rash, ulcerations or signs of pruritus noted. MUSCULOSKELETAL EXAM: No significant joint swelling noted. Results Laboratory Results: 07/29/16 06:27 07/29/16 06:27 07/29/16 07/29/16 06:27 06:27 WBC 8.8 RBC 3.02 L Hgb 8.2 L Hct 24.8 L MCV 82 MCH 27.2 MCHC 33.1 RDW 15.1 H Plt Count 223 Seg Neutrophils % 79.2 H Lymphocytes % 12.8 L Monocytes % 7.4 Eosinophils % 0.2 Basophils % 0.4 Absolute Neutrophils 7.0 Absolute Lymphocytes 1.1 Absolute Monocytes 0.6 Absolute Eosinophils 0.0 Absolute Basophils 0.0 Sodium 140.7 Potassium 3.8 Chloride 114 H Carbon Dioxide 16 L Anion Gap 11 BUN 20 Creatinine 0.78 Est GFR ( Amer) > 60 Est GFR (Non-Af Amer) > 60 Glucose 102 Calcium 9.8 EKG Comments: 12-lead EKG shows sinus rhythm, left axis deviation, nonspecific IVCD. Impressions: Chest X-Ray 07/25/16 13:16 IMPRESSION: 1. Findings suggesting multifocal pneumonia, most notable in the right upper lobe. Abdomen/Pelvis CT 07/25/16 17:05 IMPRESSION: NO ACUTE FINDINGS WITHIN THE ABDOMEN OR PELVIS. CHRONIC CHANGES ABOVE. KUB X-Ray 07/26/16 08:00 IMPRESSION: NO RADIOGRAPHIC EVIDENCE FOR ACUTE ABDOMINAL DISEASE. Assessment & Plan - Diagnosis (1) Abnormal EKG Is this a current diagnosis for this admission?: Yes (2) Dyspnea Qualifiers: Dyspnea type: dyspnea on exertion Qualified Code(s): R06.09 - Other forms of dyspnea Is this a current diagnosis for this admission?: Yes (3) Chronic obstructive pulmonary disease (COPD) Qualifiers: Emphysema type: unspecified Is this a current diagnosis for this admission?: Yes (4) Diabetes mellitus type 2 in nonobese Is this a current diagnosis for this admission?: Yes (5) Hyperlipemia Qualifiers: Hyperlipidemia type: pure hypercholesterolemia Qualified Code(s): E78.00 - Pure hypercholesterolemia, unspecified; E78.0 - Pure hypercholesterolemia Is this a current diagnosis for this admission?: Yes (6) Congestive heart failure Qualifiers: Congestive heart failure type: unspecified congestive heart failure type Congestive heart failure chronicity: acute on chronic Qualified Code(s ): I50.9 - Heart failure, unspecified Is this a current diagnosis for this admission?: Yes (7) Pneumonia Qualifiers: Laterality: right Lung location: upper lobe of lung Is this a current diagnosis for this admission?: Yes (8) Coronary artery disease Qualifiers: Coronary Disease-Associated Artery/Lesion type: [place] artery Associated angina: angina presence unspecified Is this a current diagnosis for this admission?: Yes - Notes Notes: Congestive heart failure: This is suspected based on symptoms, CT scan showing bilateral pleural effusion and some interstitial opacities in addition to right upper lobe pneumonia. Have started patient on IV diuretics and ordered a BNP level, a 2-D echocardiogram. Dyspnea: Combination of CHF and COPD. Continue therapy for both. Diabetes:Diabetes: Recommend good control of blood sugar. However should avoid any hypoglycemia. Patient being expertly managed by primary care MGayle. Dyslipidemia: Patient noted to have dyslipidemia. LDL goal is less than 70. Recommend statin therapy at least intermediate or high dose, of high potency status. Periodic lipid panel and liver panel is indicated. Patient to report any significant muscle discomfort or other side effects. Pneumonia: Continue antibiotic therapy. Coronary artery disease: CT scan reveals coronary calcification therefore by definition Patient has CAD. Recommend statin therapy, MALI inhibitor therapy etc. Patient will benefit from a nuclear stress tests when her respiratory status has improved. - Time Time Spent: 50 to 70 Minutes - CODE STATUS was discussed, patient remains full code. Surrogate decision-maker patient's son and sister. Multiple medical problems were addressed.More than 50% of the time spent coordinating care, discussing management plans with involved caregivers. Management plans discussed with involved personnels. Medical decision making was of high complexity.
[2016-07-29] MEDS ORDERED: FUROSEMIDE INJ/PF 40 MG/4 ML SDV IV SCH (22:00)
[2016-07-29] MEDS: FUROSEMIDE INJ/PF 20 MG/2 ML SDV IV SCH (22:04)
[2016-07-29] MEDS: FLUTICASONE NASAL SPRAY 50 MCG/SPRY 120 SPRAY/16 GM NASL SCH (22:05)
[2016-07-29] MEDS: MONTELUKAST SODIUM 10 MG TABLET PO SCH (22:05)
[2016-07-30 05:04] LABS: HEMATOCRIT 26.2 % (36.0-47.0); HEMOGLOBIN 8.6 g/dL (12.0-15.5); HGB HCT DIFFERENCE -0.4; MEAN CORPUSCULAR HEMOGLOBIN 26.5 pg (27.0-33.4); MEAN CORPUSCULAR HGB CONC 32.7 g/dL (32.0-36.0); MEAN CORPUSCULAR VOLUME 81 fl (80-97); RED BLOOD COUNT 3.23 10^6/uL (3.72-5.28); RED CELL DISTRIBUTION WIDTH 15.1 % (11.5-14.0); WHITE BLOOD COUNT 8.3 10^3/uL (4.0-10.5)
--- NOTE | 2016-07-30 08:05 | PDOC PROGRESS REPORT ---
Subjective Progress Note for:: 07/30/16 Subjective:: Patient underwent upper endoscopy yesterday and tolerated the procedure well. She also has had a CTA of her abdomen. She is complaining of generalized weakness. I'm awaiting biopsies. On review she's had a colonoscopy in the past. Still having intermittent abdominal pain. Questionable whether she does have adhesions. Patient denies any fevers or chills. Physical Exam Vital Signs: Temp Pulse Resp BP Pulse Ox 97.3 F 81 18 153/76 H 100 07/30/16 04:08 07/30/16 04:08 07/30/16 04:08 07/30/16 04:08 07/30/16 04:08 Intake & Output 07/29/16 07/30/16 07/31/16 06:59 06:59 06:59 Intake Total 4690 1700 Output Total 1200 3700 Balance 3490 -2000 Weight 61.7 kg 61.7 kg General appearance: PRESENT: no acute distress Head exam: PRESENT: atraumatic, normocephalic Eye exam: PRESENT: EOMI, PERRLA. ABSENT: nystagmus, periorbital swelling, scleral icterus Mouth exam: PRESENT: moist Throat exam: ABSENT: tonsillar exudate, tonsillogmegaly Neck exam: ABSENT: meningismus, tenderness, thyromegaly Respiratory exam: PRESENT: symmetrical. ABSENT: tachypnea, unlabored, wheezes Cardiovascular exam: PRESENT: RRR, +S1, +S2. ABSENT: gallop, rubs GI/Abdominal exam: PRESENT: normal bowel sounds, soft. ABSENT: rebound, rigid, tenderness Extremities exam: ABSENT: joint swelling Musculoskeletal exam: PRESENT: full ROM Neurological exam: PRESENT: alert, awake, oriented to time, oriented to situation Psychiatric exam: PRESENT: appropriate affect Skin exam: PRESENT: normal color. ABSENT: mottled, pallor, petechiae, urticaria , vesicles Results Laboratory Results: 07/30/16 04:34 07/29/16 06:27 07/30/16 04:34 WBC 8.3 RBC 3.23 L Hgb 8.6 L Hct 26.2 L MCV 81 MCH 26.5 L MCHC 32.7 RDW 15.1 H Plt Count 256 07/29/16 20:44 NT-Pro-B Natriuret Pep 3900 H Impressions: Chest X-Ray 07/25/16 13:16 IMPRESSION: 1. Findings suggesting multifocal pneumonia, most notable in the right upper lobe. Abdomen/Pelvis CT 07/25/16 17:05 IMPRESSION: NO ACUTE FINDINGS WITHIN THE ABDOMEN OR PELVIS. CHRONIC CHANGES ABOVE. KUB X-Ray 07/26/16 08:00 IMPRESSION: NO RADIOGRAPHIC EVIDENCE FOR ACUTE ABDOMINAL DISEASE. Chest/Abdomen CTA 07/29/16 00:00 IMPRESSION: Patchy consolidation greatest in the posterior aspect of the right upper lobe, additional nodular foci are present in both upper lobes. Mild subsegmental atelectasis is present in both lower lobes. There are moderate- sized pleural effusions bilaterally. No emboli visualized in the main pulmonary arteries. Assessment & Plan - Diagnosis (1) Nausea & vomiting Plan: We'll await biopsies. Symptomatic treatment for now. Advance diet as tolerated. (2) Epigastric abdominal pain Plan: No ulcers noted. Question if there may be some sort of vascular issue going on. (3) Colon polyps Plan: May need potential colonoscopy. (4) Diverticulosis large intestine w/o perforation or abscess w/bleeding Is this a current diagnosis for this admission?: Yes - Time Time Spent with patient: 25-34 minutes
[2016-07-30] MEDS: ENOXAPARIN SODIUM INJ 40 MG/0.4 ML DISP.SYRIN SUBCUT SCH (09:11)
--- NOTE | 2016-07-30 09:58 | PDOC PROGRESS REPORT ---
Subjective Progress Note for:: 07/30/16 Subjective:: Patient seems to be doing better with gradual improvement. Pt is denying any chest arm or neck discomfort. Patient denying any PND, orthopnea. Patient denied any sustained palpitations, dizziness, syncope, near syncope. Patient denying any fever chills. Patient denying any other significant discomfort. Patient is maintaining sinus rhythm. Patient feeling much better as regards dyspnea. Review of systems: Rest review of systems negative. Medications: Medications have been reviewed. Physical Exam Vital Signs: Temp Pulse Resp BP Pulse Ox 97.6 F 71 17 140/61 H 100 07/30/16 08:00 07/30/16 09:13 07/30/16 09:13 07/30/16 08:00 07/30/16 09:13 Intake & Output 07/29/16 07/30/16 07/31/16 06:59 06:59 06:59 Intake Total 4690 1700 Output Total 1200 3700 Balance 3490 -2000 Weight 61.7 kg 61.7 kg Exam: GENERAL: well-nourished and in no acute distress. Alert and oriented x3 HEAD: Atraumatic, normocephalic. EYES: Pupils equal round and reactive to light, extraocular movements intact, sclera anicteric, conjunctiva are normal. ENT: TMs normal, nares patent, oropharynx clear without exudates. Moist mucous membranes. No oral ulcerations or bleeding gums noted NECK: supple without lymphadenopathy. Trachea is central. No cervical or axillary lymphadenopathy noted. Carotids are 2+, JVD 12 CM LUNGS: Respiration seems nonlabored, no significant accessory muscle action noted. Bibasal a fine crackles with mild dullness noted at bases. Mild bibasilar wheezing noted CHEST: Palpation of the chest wall shows no significant chest wall tenderness. No other significant abnormalities noted. 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 ABDOMEN: Soft, no significant tenderness appreciated, normoactive bowel sounds. No guarding, no rebound. No rigidity noted . No masses appreciated. EXTREMITIES: Pedal pulses are 1-2+, no calf tenderness noted. No clubbing or cyanosis.trace pedal edema noted NEUROLOGICAL: Focused neurological exam showed no significant neurologic deficit. Normal speech, no focal weakness appreciated. PSYCH: Normal mood, normal affect. Judgment and insight within normal limits. SKIN: No significant ecchymosis, rash, ulcerations or signs of pruritus noted. MUSCULOSKELETAL EXAM: No significant joint swelling noted. Results Laboratory Results: 07/30/16 04:34 07/29/16 06:27 07/30/16 04:34 WBC 8.3 RBC 3.23 L Hgb 8.6 L Hct 26.2 L MCV 81 MCH 26.5 L MCHC 32.7 RDW 15.1 H Plt Count 256 07/29/16 20:44 NT-Pro-B Natriuret Pep 3900 H Impressions: Chest X-Ray 07/25/16 13:16 IMPRESSION: 1. Findings suggesting multifocal pneumonia, most notable in the right upper lobe. Abdomen/Pelvis CT 07/25/16 17:05 IMPRESSION: NO ACUTE FINDINGS WITHIN THE ABDOMEN OR PELVIS. CHRONIC CHANGES ABOVE. KUB X-Ray 07/26/16 08:00 IMPRESSION: NO RADIOGRAPHIC EVIDENCE FOR ACUTE ABDOMINAL DISEASE. Chest/Abdomen CTA 07/29/16 00:00 IMPRESSION: Patchy consolidation greatest in the posterior aspect of the right upper lobe, additional nodular foci are present in both upper lobes. Mild subsegmental atelectasis is present in both lower lobes. There are moderate- sized pleural effusions bilaterally. No emboli visualized in the main pulmonary arteries. Assessment & Plan - Diagnosis (1) Congestive heart failure Qualifiers: Congestive heart failure type: unspecified congestive heart failure type Congestive heart failure chronicity: acute on chronic Qualified Code(s ): I50.9 - Heart failure, unspecified Is this a current diagnosis for this admission?: Yes (2) Dyspnea Qualifiers: Dyspnea type: dyspnea on exertion Qualified Code(s): R06.09 - Other forms of dyspnea Is this a current diagnosis for this admission?: Yes (3) Chronic obstructive pulmonary disease (COPD) Qualifiers: Emphysema type: unspecified Is this a current diagnosis for this admission?: Yes (4) Diabetes mellitus type 2 in nonobese Is this a current diagnosis for this admission?: Yes (5) Hyperlipemia Qualifiers: Hyperlipidemia type: pure hypercholesterolemia Qualified Code(s): E78.00 - Pure hypercholesterolemia, unspecified; E78.0 - Pure hypercholesterolemia Is this a current diagnosis for this admission?: Yes (6) Pneumonia Qualifiers: Laterality: right Lung location: upper lobe of lung Is this a current diagnosis for this admission?: Yes (7) Coronary artery disease Qualifiers: Coronary Disease-Associated Artery/Lesion type: [place] artery Associated angina: angina presence unspecified Is this a current diagnosis for this admission?: Yes (8) Abnormal EKG Is this a current diagnosis for this admission?: Yes - Notes Notes: Congestive heart failure: Acute on chronic based on history. 2-D echo report pending at the time of dictation. Continue IV diuretic therapy. Patient has about 7-10 pounds of excess fluid. Patient will benefit from following CHF pathway. This was explained. Dyspnea: Seems predominantly secondary to CHF with some contribution from COPD. COPD: Continue current management plans. :Diabetes: Recommend good control of blood sugar. However should avoid any hypoglycemia. Patient being expertly managed by primary care MGayle. Dyslipidemia: Patient noted to have dyslipidemia. LDL goal is less than 70. Recommend statin therapy at least intermediate or high dose, of high potency status. Periodic lipid panel and liver panel is indicated. Patient to report any significant muscle discomfort or other side effects. Pneumonia: CT scan confirmed right upper lobe pneumonia. Continue antibiotic therapy. Coronary artery disease: Currently stable. Patient does have coronary calcification. Will recommend a nuclear stress test as an outpatient. Abnormal EKG: Currently stable. Will review previous EKGs. - Time Time with patient: Greater than 35 minutes - CODE STATUS was discussed, patient remains full code. Surrogate decision-maker unchanged. Multiple medical problems were addressed.More than 50% of the time spent coordinating care, discussing management plans with involved caregivers. Management plans discussed with involved personnels. Medical decision making was of moderate complexity. Medications reviewed and adjusted accordingly: Yes
[2016-07-30] MEDS: ASPIRIN 81 MG TABLET, CHEWABLE PO SCH (11:00)
[2016-07-30] MEDS: CEFUROXIME 500 MG TABLET PO SCH ×2 (11:00→21:29)
[2016-07-30] MEDS: CHOLECALCIFEROL (D3) 1,000 UNIT TABLET PO SCH (11:00)
[2016-07-30] MEDS: FAMOTIDINE 20 MG TABLET PO SCH ×2 (11:00→21:29)
[2016-07-30] MEDS: SPIRONOLACTONE 25 MG TABLET PO SCH (11:01)
[2016-07-30] MEDS: PREDNISONE 20 MG TABLET PO SCH (11:02)
[2016-07-30] MEDS: FLUTICASONE/SALMETEROL DISKUS 500-50 MCG/DOSE IH SCH ×2 (11:03→21:29)
[2016-07-30] MEDS: FLUTICASONE NASAL SPRAY 50 MCG/SPRY 120 SPRAY/16 GM NASL SCH ×2 (11:03→21:28)
[2016-07-30] MEDS: FUROSEMIDE INJ/PF 20 MG/2 ML SDV IV SCH (11:04)
--- NOTE | 2016-07-30 12:13 | XCELERA REPORT ---
[address] [address] Transthoracic Echocardiogram Report Name: BRIE MERCADO Age: 76 yrs Gender: Female : 1940 Patient Status: Inpatient Patient Location: 5\S\530\S\A Study Date: 07/30/2016 09:46 AM Height: 61 in Weight: 136 lb BSA: 1.6 m2 Procedure: A complete two-dimensional transthoracic echocardiogram was performed (2D, M-mode, spectral and color flow Doppler). The study was technically adequate with some images being suboptimal in quality. Reason For Study: shortness of breath on exertion Ordering Physician: WARD DAMIAN Performed By: Hilary Andrews Interpretation Summary Left ventricular systolic function is low normal. Doppler measurements suggest pseudonormalized left ventricular relaxation, which is associated with grade II/IV or mild to moderate diastolic dysfunction There is normal left ventricular wall thickness. The left ventricle is grossly normal size. Wall motion cannot be accurately commented on, but no definite regional wall motion abnormalities noted. The right ventricle appears to be hypertrophied The right ventricle is mildly dilated. The right ventricular systolic function is normal. The right atrium is normal in size The left atrium is mildly dilated. There is a mild to moderate amount of mitral regurgitation There is no mitral valve stenosis. No aortic regurgitation is present. There is no aortic valve stenosis There is a trace to mild amount of tricuspid regurgitation There is mild to moderate pulmonary hypertension by echo Right ventricular systolic pressure is estimated to be elevated at 40- 50mmHg. The aortic root is not well visualized but is probably normal size. The inferior vena cava appeared normal and decreased < 50% with respiration (RAP 10-15 mmHg) Minimal pericardial effusion. MMode/2D Measurements \T\ Calculations RVDd: 2.6 cm LVIDd: 4.7 cm FS: 31.0 % Ao root diam: 1.9 cm IVSd: 0.78 cm LVIDs: 3.2 cm EDV(Teich): 102.6 ml LVPWd: 0.78 cm ESV(Teich): 42.5 ml Ao root area: 2.9 cm2 EF(Teich): 58.6 % LA dimension: 3.6 cm Doppler Measurements \T\ Calculations MV E max elena: MV P1/2t max elena: Ao V2 max: LV V1 max P.4 cm/sec 86.9 cm/sec 156.4 cm/sec 3.7 mmHg MV A max elena: MV P1/2t: 46.2 msec Ao max PG: LV V1 max: 102.7 cm/sec 9.8 mmHg 96.7 cm/sec MV E/A: 0.84 MVA(P1/2t): 4.8 cm2 MV dec slope: 551.2 cm/sec2 MV dec time: 0.17 sec PA V2 max: PI end-d elena: TR max elena: 89.3 cm/sec 134.4 cm/sec 276.9 cm/sec PA max P.2 mmHg TR max P.7 mmHg Left Ventricle The left ventricle is grossly normal size. There is normal left ventricular wall thickness. Left ventricular systolic function is low normal. Doppler measurements suggest pseudonormalized left ventricular relaxation, which is associated with grade II/IV or mild to moderate diastolic dysfunction. Wall motion cannot be accurately commented on, but no definite regional wall motion abnormalities noted. Right Ventricle The right ventricle is mildly dilated. The right ventricle appears to be hypertrophied. The right ventricular systolic function is normal. Atria The right atrium is normal in size. The left atrium is mildly dilated. Interarterial septum not well visualized and not well dopplered. Cannot comment on ASD/PFO presence. Mitral Valve The mitral valve is grossly normal. There is no mitral valve stenosis. There is a mild to moderate amount of mitral regurgitation. Aortic Valve The aortic valve is grossly normal. There is no aortic valve stenosis. No aortic regurgitation is present. Tricuspid Valve The tricuspid valve is not well visualized, but is grossly normal. There is no tricuspid stenosis. There is a trace to mild amount of tricuspid regurgitation. There is mild to moderate pulmonary hypertension by echo. Right ventricular systolic pressure is estimated to be elevated at 40- 50mmHg. Pulmonic Valve The pulmonic valve is not well visualized. Great Vessels The aortic root is not well visualized but is probably normal size. The inferior vena cava appeared normal and decreased < 50% with respiration (RAP 10-15 mmHg). Effusions Minimal pericardial effusion. : WARD DAMIAN > Sandra Martino
[2016-07-30] MEDS ORDERED: FUROSEMIDE INJ/PF 20 MG/2 ML SDV IV SCH (13:31)
--- NOTE | 2016-07-30 13:35 | PDOC PROGRESS REPORT ---
Subjective Progress Note for:: 07/30/16 Subjective:: Patient feeling better this morning. Shortness of breath on exertion better. Denies any chest pain at all. No dizziness or lightheadedness. No diarrhea, nausea or vomiting, chills or fever. Able to ambulate better. Physical Exam Vital Signs: Temp Pulse Resp BP Pulse Ox 97.3 F 81 18 159/58 H 100 07/30/16 12:00 07/30/16 12:00 07/30/16 12:00 07/30/16 12:00 07/30/16 12:00 Intake & Output 07/29/16 07/30/16 07/31/16 06:59 06:59 06:59 Intake Total 4690 1700 Output Total 1200 3700 Balance 3490 -2000 Weight 61.7 kg 61.7 kg General appearance: PRESENT: no acute distress, cooperative, obese Head exam: PRESENT: normocephalic Eye exam: PRESENT: EOMI Mouth exam: PRESENT: moist, neck supple Neck exam: ABSENT: JVD Respiratory exam: PRESENT: rhonchi - few bilateral, unlabored. ABSENT: wheezes Cardiovascular exam: PRESENT: RRR. ABSENT: gallop GI/Abdominal exam: PRESENT: normal bowel sounds, soft. ABSENT: distended, tenderness Extremities exam: ABSENT: clubbing, pedal edema Neurological exam: PRESENT: alert, awake, oriented to situation Skin exam: PRESENT: dry, warm. ABSENT: cyanosis Results Laboratory Results: 07/30/16 04:34 07/29/16 06:27 07/30/16 04:34 WBC 8.3 RBC 3.23 L Hgb 8.6 L Hct 26.2 L MCV 81 MCH 26.5 L MCHC 32.7 RDW 15.1 H Plt Count 256 07/29/16 20:44 NT-Pro-B Natriuret Pep 3900 H Impressions: Chest X-Ray 07/25/16 13:16 IMPRESSION: 1. Findings suggesting multifocal pneumonia, most notable in the right upper lobe. Abdomen/Pelvis CT 07/25/16 17:05 IMPRESSION: NO ACUTE FINDINGS WITHIN THE ABDOMEN OR PELVIS. CHRONIC CHANGES ABOVE. KUB X-Ray 07/26/16 08:00 IMPRESSION: NO RADIOGRAPHIC EVIDENCE FOR ACUTE ABDOMINAL DISEASE. Chest/Abdomen CTA 07/29/16 00:00 IMPRESSION: Patchy consolidation greatest in the posterior aspect of the right upper lobe, additional nodular foci are present in both upper lobes. Mild subsegmental atelectasis is present in both lower lobes. There are moderate- sized pleural effusions bilaterally. No emboli visualized in the main pulmonary arteries. Assessment & Plan - Diagnosis (1) Pneumonia Qualifiers: Pneumonia type: due to unspecified organism Laterality: right Lung location: upper lobe of lung Qualified Code(s): J18.1 - Lobar pneumonia, unspecified organism Is this a current diagnosis for this admission?: Yes (2) Chronic obstructive pulmonary disease (COPD) Qualifiers: Emphysema type: unspecified Is this a current diagnosis for this admission?: Yes (3) Pleural effusion Is this a current diagnosis for this admission?: Yes (4) Congestive heart failure Qualifiers: Congestive heart failure type: unspecified congestive heart failure type Congestive heart failure chronicity: acute on chronic Qualified Code(s ): I50.9 - Heart failure, unspecified Is this a current diagnosis for this admission?: Yes (5) Gastritis Qualifiers: Gastritis type: unspecified gastritis Chronicity: unspecified Gastritis bleeding: presence of bleeding unspecified Qualified Code(s): K29.70 - Gastritis, unspecified, without bleeding Is this a current diagnosis for this admission?: Yes (6) Shortness of breath on exertion Is this a current diagnosis for this admission?: Yes (7) Generalized weakness Is this a current diagnosis for this admission?: Yes (8) Diverticulosis large intestine w/o perforation or abscess w/bleeding Is this a current diagnosis for this admission?: Yes (9) Diabetes mellitus type 2 in nonobese Is this a current diagnosis for this admission?: Yes (10) Hyperlipemia Qualifiers: Hyperlipidemia type: pure hypercholesterolemia Qualified Code(s): E78.00 - Pure hypercholesterolemia, unspecified; E78.0 - Pure hypercholesterolemia Is this a current diagnosis for this admission?: Yes (11) GERD (gastroesophageal reflux disease) Qualifiers: Esophagitis presence: without esophagitis Qualified Code(s): K21.9 - Gastro-esophageal reflux disease without esophagitis Is this a current diagnosis for this admission?: Yes (12) Hiatal hernia Is this a current diagnosis for this admission?: Yes - Time Time Spent with patient: 25-34 minutes - Plan Summary Plan Summary: We'll check room air oxygenation at rest and ambulation to check for home O2 requirement. I will increase the patient's Lasix to 40 mg twice a day. We will check basic metabolic panel. Taper steroids. Continue bronchodilators and antibiotics. Continue supportive care.
[2016-07-30] MEDS: MONTELUKAST SODIUM 10 MG TABLET PO SCH (18:48)
[2016-07-30] MEDS: FUROSEMIDE INJ/PF 40 MG/4 ML SDV IV SCH (23:04)
[2016-07-31 07:25] LABS: ANION GAP 11 (5-19); BLOOD UREA NITROGEN 22 mg/dL (7-20); CALCIUM 9.9 mg/dL (8.4-10.2); CARBON DIOXIDE 26 mmol/L (22-30); CHLORIDE 103 mmol/L (98-107); CREATININE RESULT 0.81 mg/dL (0.52-1.25); GLUCOSE 104 mg/dL (75-110); POTASSIUM 3.6 mmol/L (3.6-5.0); SODIUM 140.1 mmol/L (137-145)
[2016-07-31] MEDS ORDERED: PREDNISONE 20 MG TABLET PO SCH (10:00)
[2016-07-31] MEDS: ASPIRIN 81 MG TABLET, CHEWABLE PO SCH (11:18)
[2016-07-31] MEDS: CHOLECALCIFEROL (D3) 1,000 UNIT TABLET PO SCH (11:18)
[2016-07-31] MEDS: SPIRONOLACTONE 25 MG TABLET PO SCH (11:18)
[2016-07-31] MEDS: FLUTICASONE/SALMETEROL DISKUS 500-50 MCG/DOSE IH SCH (11:19)
[2016-07-31] MEDS: CEFUROXIME 500 MG TABLET PO SCH (11:19)
[2016-07-31] MEDS: FLUTICASONE NASAL SPRAY 50 MCG/SPRY 120 SPRAY/16 GM NASL SCH (11:19)
[2016-07-31] MEDS: FAMOTIDINE 20 MG TABLET PO SCH (11:19)
[2016-07-31] MEDS: FUROSEMIDE INJ/PF 40 MG/4 ML SDV IV SCH (11:23)
[2016-07-31] MEDS: ENOXAPARIN SODIUM INJ 40 MG/0.4 ML DISP.SYRIN SUBCUT SCH (11:25)
--- NOTE | 2016-07-31 11:29 | PDOC DISCHARGE SUMMARY ---
General - Admit/Disc Date/PCP Admission Date/Primary Care Provider: 07/26/16 09:25 MELINA ARMIJO, Discharge Date: 07/31/16 - Discharge Diagnosis (1) Pneumonia Is this a current diagnosis for this admission?: Yes (2) Chronic obstructive pulmonary disease (COPD) Is this a current diagnosis for this admission?: Yes (3) Pleural effusion Is this a current diagnosis for this admission?: Yes (4) Congestive heart failure Is this a current diagnosis for this admission?: Yes (5) Gastritis Is this a current diagnosis for this admission?: Yes (6) Shortness of breath on exertion Is this a current diagnosis for this admission?: Yes (7) Generalized weakness Is this a current diagnosis for this admission?: Yes (8) Diverticulosis large intestine w/o perforation or abscess w/bleeding Is this a current diagnosis for this admission?: Yes (9) Diabetes mellitus type 2 in nonobese Is this a current diagnosis for this admission?: Yes (10) Hyperlipemia Is this a current diagnosis for this admission?: Yes (11) GERD (gastroesophageal reflux disease) Is this a current diagnosis for this admission?: Yes (12) Hiatal hernia Is this a current diagnosis for this admission?: Yes - Additional Information Resuscitation Status: Full Code Discharge Diet: Diabetic Discharge Activity: Activity As Tolerated, Balance Activity w/Rest, Weigh Daily Home Medications: Albuterol Sulfate [Proair HFA] 1 puff IH Q4HP PRN 07/25/16 Aspirin [Aspirin 81 mg Chewable Tablet] 81 mg PO DAILY 07/25/16 Famotidine [Pepcid 40 mg Tablet] 40 mg PO Q12 07/25/16 Fluticasone Propionate [Flonase Nasal [place] 50 Mcg/[place] 16 gm] 1 spray NASL Q12 07/25/16 Fluticasone/Salmeterol [Advair 500-50 Diskus 14 Dose/Diskus] 1 inh IH Q12 Guar Gum [Benefiber] 1 each PO DAILY 07/25/16 Melatonin 5 mg PO HSP PRN 07/25/16 Montelukast Sodium [Singulair 10 mg Tablet] 10 mg PO QHS 07/25/16 Vitamin B Complex [B Complex] 1 each PO DAILY 07/25/16 Cefuroxime Axetil [Ceftin 500 mg Tablet] 1 tab PO BID #20 tablet 07/28/16 Oxycodone HCl [Oxy-Ir 5 mg Tablet] 5 mg PO Q6HP PRN #20 tablet 07/28/16 Prednisone [Deltasone 10 mg Tablet] 10 mg PO DAILY #60 tablet 07/28/16 Furosemide [Lasix] 40 mg PO DAILY #30 tablet 07/31/16 Spironolactone [Aldactone 25 mg Tablet] 25 mg PO DAILY #30 tablet 07/31/16 Additional Information: Colonoscopy as outpatient with Dr. Houston. History of Present Illness Patient complains of: Shortness of breath, abdominal pain, cough History of Present Illness: BRIE MERCADO is a 76 year old female, with COPD and hypertension presents to the hospital because of abdominal pain with a lot of coughing as well as shortness of breath of several days of which in the emergency room chest x-ray revealed findings suggestive of multifocal pneumonia. The patient was given antibiotics, steroids, nebulizers and was referred for admission. For details please refer to history and physical examination performed by the admitting physician. Hospital Course Hospital Course: The patient was admitted to telemetry. The patient was started on intravenous antibiotic, steroids, and bronchodilators. Supplemental oxygen was given. Intravenous fluids was likewise given for hydration. Her cultures remained negative and therefore the patient's antibiotic was shifted to oral. In terms of her COPD she likewise improved and intravenous steroid shifted to oral. Course was noted for abdominal pain, gastroenterology was consulted and upper endoscopy performed showing gastritis. Patient was advised to follow-up outpatient for possible colonoscopy. Course was also noted for shortness of breath on exertion where a CT scan of the chest did not reveal any pulmonary embolism, but did reveal pleural effusion that is moderate as well as the patchy infiltrates from the recent pneumonia. The patient was began on diuretics, and referred to cardiology service. Brain natruretic peptide was elevated. Her cardiac enzymes on presentation was negative. Patient significantly improve after the diuretics. Her dyspnea on a surgeon significantly improved and the patient was able to ambulate around. Oxygen was able to be weaned and her saturation was greater than 90%. Echocardiogram revealed a normal ejection fraction. The rest of the hospital stay is unremarkable. Physical Exam Vital Signs: Temp Pulse Resp BP Pulse Ox 97.7 F 75 16 142/82 H 97 07/31/16 07:54 07/31/16 11:02 07/31/16 11:02 07/31/16 07:54 07/31/16 11:02 Intake & Output 07/30/16 07/31/16 08/01/16 06:59 06:59 06:59 Intake Total 1700 1560 Output Total 3700 3600 Balance -1999 -2039 Weight 61.7 kg 59.8 kg General appearance: PRESENT: no acute distress, cooperative Head exam: PRESENT: normocephalic Eye exam: PRESENT: EOMI Mouth exam: PRESENT: moist, neck supple Neck exam: ABSENT: JVD Respiratory exam: PRESENT: decreased breath sounds - Lower lung zurita. ABSENT : rhonchi, wheezes Cardiovascular exam: PRESENT: RRR. ABSENT: gallop GI/Abdominal exam: PRESENT: soft. ABSENT: distended, tenderness Extremities exam: ABSENT: pedal edema Neurological exam: PRESENT: alert, awake, oriented to person, oriented to place , oriented to time, oriented to situation Skin exam: PRESENT: dry, warm. ABSENT: cyanosis Results Laboratory Results: 07/30/16 04:34 07/31/16 06:23 07/31/16 06:23 Sodium 140.1 Potassium 3.6 Chloride 103 Carbon Dioxide 26 Anion Gap 11 BUN 22 H Creatinine 0.81 Est GFR ( Amer) > 60 Est GFR (Non-Af Amer) > 60 Glucose 104 Calcium 9.9 07/29/16 20:44 NT-Pro-B Natriuret Pep 3900 H Impressions: Chest X-Ray 07/25/16 13:16 IMPRESSION: 1. Findings suggesting multifocal pneumonia, most notable in the right upper lobe. Abdomen/Pelvis CT 07/25/16 17:05 IMPRESSION: NO ACUTE FINDINGS WITHIN THE ABDOMEN OR PELVIS. CHRONIC CHANGES ABOVE. KUB X-Ray 07/26/16 08:00 IMPRESSION: NO RADIOGRAPHIC EVIDENCE FOR ACUTE ABDOMINAL DISEASE. Chest/Abdomen CTA 07/29/16 00:00 IMPRESSION: Patchy consolidation greatest in the posterior aspect of the right upper lobe, additional nodular foci are present in both upper lobes. Mild subsegmental atelectasis is present in both lower lobes. There are moderate- sized pleural effusions bilaterally. No emboli visualized in the main pulmonary arteries. Qualifiers PATEINT BEING DISCHARGED WITH ANY OF THE FOLLOWING DIAGNOSIS?: Heart Failure HF Pt being discharged on ACEI for LVEF less than 40%?: No Reason(s) for not prescribing ACEI:: Not indicated - Normal ejection fraction HF Pt being discharged on ARBS for LVEF less than 40%?: No Reason(s) for not prescribing ARBS:: Not indicated - Normal ejection fraction HF Pt with Afib discharged with Warfarin?: No Reason(s) for not prescribing Warfarin:: Not indicated - No atrial fibrillation HF Pt discharged on evidence-based Beta Amarilis?: No Reason(s) for not prescribing evidence-based Beta Amarilis:: Not indicated - Normal ejection fraction Plan Discharge Plan: Follow-up with primary care physician in one week. Follow-up with cardiology in 1-2 weeks( Dr. Martino), follow-up with gastroenterology in 2 weeks ( Dr. Houston ) Time Spent: Less than 30 Minutes
[2016-07-31 11:52] VITALS: BP 120/48
--- NOTE | 2016-07-31 12:52 | PDOC PROGRESS REPORT ---
Subjective Progress Note for:: 07/31/16 Subjective:: Patient seems to be doing better with gradual improvement. Pt is denying any chest arm or neck discomfort. Patient denying any PND, orthopnea. Patient denied any sustained palpitations, dizziness, syncope, near syncope. Patient denying any fever chills. Patient denying any other significant discomfort. Patient is maintaining sinus rhythm. Patient feeling much better as regards dyspnea. Patient was encouraged to ambulate. Patient informed that if she does well with ambulation, she could be discharged. Review of systems: Rest review of systems negative. Medications: Medications have been reviewed. Physical Exam Vital Signs: Temp Pulse Resp BP Pulse Ox 97.7 F 75 16 120/48 L 97 07/31/16 11:48 07/31/16 11:48 07/31/16 11:48 07/31/16 11:48 07/31/16 11:48 Intake & Output 07/30/16 07/31/16 08/01/16 06:59 06:59 06:59 Intake Total 1700 1560 Output Total 3700 3600 Balance -1999 -2039 Weight 61.7 kg 59.8 kg Exam: GENERAL: well-nourished and in no acute distress. Alert and oriented x3 HEAD: Atraumatic, normocephalic. EYES: Pupils equal round and reactive to light, extraocular movements intact, sclera anicteric, conjunctiva are normal. ENT: TMs normal, nares patent, oropharynx clear without exudates. Moist mucous membranes. No oral ulcerations or bleeding gums noted NECK: supple without lymphadenopathy. Trachea is central. No cervical or axillary lymphadenopathy noted. Carotids are 2+, JVD 8 CM LUNGS: Respiration seems nonlabored, no significant accessory muscle action noted. Breath sounds clear to auscultation bilaterally and equal noted. No wheezes rales or rhonchi noted. No significant dullness noted on percussion. CHEST: Palpation of the chest wall shows no significant chest wall tenderness. No other significant abnormalities noted. HEART: [place] [employer], No PSH, 1/6 SUZ[place]NE aortic area, 1/6 chacon systolic murmur mitral area, no rubs, no gallops. ABDOMEN: Soft, no significant tenderness appreciated, normoactive bowel sounds. No guarding, no rebound. No rigidity noted . No masses appreciated. EXTREMITIES: Pedal pulses are 1-2+, no calf tenderness noted. No clubbing or cyanosis.1+ pedal edema noted NEUROLOGICAL: Focused neurological exam showed no significant neurologic deficit. Normal speech, no focal weakness appreciated. PSYCH: Normal mood, normal affect. Judgment and insight within normal limits. SKIN: No significant ecchymosis, rash, ulcerations or signs of pruritus noted. MUSCULOSKELETAL EXAM: No significant joint swelling noted. Results Laboratory Results: 07/30/16 04:34 07/31/16 06:23 07/31/16 06:23 Sodium 140.1 Potassium 3.6 Chloride 103 Carbon Dioxide 26 Anion Gap 11 BUN 22 H Creatinine 0.81 Est GFR ( Amer) > 60 Est GFR (Non-Af Amer) > 60 Glucose 104 Calcium 9.9 07/29/16 20:44 NT-Pro-B Natriuret Pep 3900 H Impressions: Chest X-Ray 07/25/16 13:16 IMPRESSION: 1. Findings suggesting multifocal pneumonia, most notable in the right upper lobe. Abdomen/Pelvis CT 07/25/16 17:05 IMPRESSION: NO ACUTE FINDINGS WITHIN THE ABDOMEN OR PELVIS. CHRONIC CHANGES ABOVE. KUB X-Ray 07/26/16 08:00 IMPRESSION: NO RADIOGRAPHIC EVIDENCE FOR ACUTE ABDOMINAL DISEASE. Chest/Abdomen CTA 07/29/16 00:00 IMPRESSION: Patchy consolidation greatest in the posterior aspect of the right upper lobe, additional nodular foci are present in both upper lobes. Mild subsegmental atelectasis is present in both lower lobes. There are moderate- sized pleural effusions bilaterally. No emboli visualized in the main pulmonary arteries. Assessment & Plan - Diagnosis (1) Congestive heart failure Qualifiers: Congestive heart failure type: unspecified congestive heart failure type Congestive heart failure chronicity: acute on chronic Qualified Code(s ): I50.9 - Heart failure, unspecified Is this a current diagnosis for this admission?: Yes (2) Dyspnea Qualifiers: Dyspnea type: dyspnea on exertion Qualified Code(s): R06.09 - Other forms of dyspnea Is this a current diagnosis for this admission?: Yes (3) Chronic obstructive pulmonary disease (COPD) Qualifiers: Emphysema type: unspecified Is this a current diagnosis for this admission?: Yes (4) Diabetes mellitus type 2 in nonobese Is this a current diagnosis for this admission?: Yes (5) Hyperlipemia Qualifiers: Hyperlipidemia type: pure hypercholesterolemia Qualified Code(s): E78.00 - Pure hypercholesterolemia, unspecified; E78.0 - Pure hypercholesterolemia Is this a current diagnosis for this admission?: Yes (6) Pneumonia Qualifiers: Laterality: right Lung location: upper lobe of lung Is this a current diagnosis for this admission?: Yes (7) Coronary artery disease Qualifiers: Coronary Disease-Associated Artery/Lesion type: [place] artery Associated angina: angina presence unspecified Is this a current diagnosis for this admission?: Yes (8) Abnormal EKG Is this a current diagnosis for this admission?: Yes - Notes Notes: Congestive heart failure: Acute on chronic based on history. [place] to be related to diastolic dysfunction with some complement of right heart failure.This seems compensated on clinical exam. Continue baseline diuretic therapy. Patient should be educated in CHF pathway. This should include salt and fluid restriction, daily weighing, adjustment of diuretic therapy based on weight gain et cetera. Patient to be educated that if there is gain of more than 2 pounds in a day or more than 5 pounds in a week, this indicates fluid retention and patient may need to adjust the diuretic therapy. Symptoms associated with CHF exacerbation to be discussed with the patient. This could include rapid weight gain, abdominal bloating, increased shortness of breath, fatigue, tiredness, cardiac arrhythmias et cetera. Dyspnea: Seems predominantly secondary to CHF with some contribution from COPD. COPD: Continue current management plans. :Diabetes: Recommend good control of blood sugar. However should avoid any hypoglycemia. Patient being expertly managed by primary care M.D. Dyslipidemia: Patient noted to have dyslipidemia. LDL goal is less than 70. Recommend statin therapy at least intermediate or high dose, of high potency status. Periodic lipid panel and liver panel is indicated. Patient to report any significant muscle discomfort or other side effects. Pneumonia: CT scan confirmed right upper lobe pneumonia. Continue antibiotic therapy. Coronary artery disease: Currently stable. Patient does have coronary calcification. Will recommend a nuclear stress test as an outpatient. Abnormal EKG: Currently stable. Patient encouraged to schedule this stress test as an outpatient.. - Time Time with patient: 15-25 minutes - CODE STATUS was discussed, patient remains full code. Surrogate decision-maker unchanged. Multiple medical problems were addressed.More than 50% of the time spent coordinating care, discussing management plans with involved caregivers. Management plans discussed with involved personnels. Medical decision making was of moderate complexity.
== END 2016-07-31 13:09 | disposition home health service (06) | DRG 193 ==
LOC: ER 13:01 → EH 17:46 → 5 21:05 → OBSVTOIN 07-26 09:25
PROVIDERS: ADMIT Internal Medicine; ATTEND Internal Medicine
PROC: 3E0F73Z Introduction of Anti-inflammatory into Respiratory Tract, Via Natural or Artificial Opening (ICD-10-PCS; 2016-07-26)
PROC: 0DB68ZX Excision of Stomach, Via Natural or Artificial Opening Endoscopic, Diagnostic (ICD-10-PCS; principal; 2016-07-29 13:00)
DX: J15.9 Unspecified bacterial pneumonia (principal); I50.33 Acute on chronic diastolic (congestive) heart failure; E11.9 Type 2 diabetes mellitus without complications; E78.00 Pure hypercholesterolemia, unspecified; I11.0 Hypertensive heart disease with heart failure; K44.9 Diaphragmatic hernia without obstruction or gangrene; I25.10 Atherosclerotic heart disease of native coronary artery without angina pectoris; K29.70 Gastritis, unspecified, without bleeding; M19.90 Unspecified osteoarthritis, unspecified site; K57.30 Diverticulosis of large intestine without perforation or abscess without bleeding; J43.9 Emphysema, unspecified; K21.9 Gastro-esophageal reflux disease without esophagitis; J45.909 Unspecified asthma, uncomplicated; Z90.49 Acquired absence of other specified parts of digestive tract; Z90.710 Acquired absence of both cervix and uterus; Z99.81 Dependence on supplemental oxygen; Z88.3 Allergy status to other anti-infective agents; Z79.899 Other long term (current) drug therapy; Z79.52 Long term (current) use of systemic steroids; Z82.3 Family history of stroke; Z85.51 Personal history of malignant neoplasm of bladder; Z82.49 Family history of ischemic heart disease and other diseases of the circulatory system; Z83.6 Family history of other diseases of the respiratory system; Z80.0 Family history of malignant neoplasm of digestive organs; Z80.3 Family history of malignant neoplasm of breast; Z80.1 Family history of malignant neoplasm of trachea, bronchus and lung; Z80.6 Family history of leukemia; Z80.42 Family history of malignant neoplasm of prostate; Z80.52 Family history of malignant neoplasm of bladder
CPT/HCPCS: 36415; 43239; 71020; 71275; 74000; 74177; 80048; 80053; 82550; 82553; 82962; 83880; 84484; 85025; 85027; 87040; 88305; 88341; 93005; 93010; 93306; 94640; 99291; G0378; G8978-GP; G8979-GP; G8980-GP; J0171; J0456; J0696; J1200; J1610; J1650; J1940; J2250; J2310; J2405; J2550; J2765; J2920; J3010; J3490; J7030; J7060; J7512; J7620; S0119

== ENCOUNTER 2016-08-08 00:11 | Emergency (ER) | payer MEDICARE ==
--- NOTE | 2016-08-08 00:23 | ER Document Report ---
ED Medical Screen (RME) - General Chief Complaint: Abdominal Pain Stated Complaint: ABDOMINAL PAIN Mode of Arrival: Wheelchair Information source: Patient Notes: Reports nausea started again yesterday, abdominal pain today, increased, vomited three times tonight. Reports 4 BM yesterday, none today. History of bowel obstruction CHF pneumonia. C/O severe abdominal pain, abd ttp, pt reports feels bloated. I have greeted and performed a rapid initial assessment of this patient. A comprehensive ED assessment and evaluation of the patient, analysis of test results and completion of the medical decision making process will be conducted by additional ED providers. TRAVEL OUTSIDE OF THE [place] IN LAST 30 DAYS: No - Related Data Allergies/Adverse Reactions: ciprofloxacin [From Cipro] Allergy (Verified 07/25/16 13:14) Hives Past Medical History - Social History Family history: Reviewed & Not Pertinent - Past Medical History Cardiac Medical History: Reports: Hx Hypercholesterolemia, Hx Heart Murmur Denies: Hx Heart Attack, Hx Hypertension Comment Only: Hx Congestive Heart Failure - She is being tested to see if she has this Pulmonary Medical History: Reports: Hx Asthma, Hx Bronchitis, Hx COPD, Hx Pneumonia Denies: Hx Tuberculosis Neurological Medical History: Denies: Hx Seizures Endocrine Medical History: Reports: Hx Diabetes Mellitus Type 2 - When necessary insulin for steroid induced hypoglycemia. Renal/ Medical History: Denies: Hx Peritoneal Dialysis GI Medical History: Reports: Hx Diverticulitis, Hx Gastroesophageal Reflux Disease, Hx Hiatal Hernia, Hx Irritable Bowel, Hx Ulcer. Denies: Hx Cirrhosis, Hx Hepatitis Musculoskeltal Medical History: Reports Hx Arthritis Psychiatric Medical History: Reports: Hx Depression - Some appropriate transient depression after her son 2 years ago. Denies: Hx Anxiety - Patient denies history of anxiety Infectious Medical History: Denies: Hx Hepatitis Past Surgical History: Reports: Hx Abdominal Surgery - 3 ex-laops with lysis of adhesions for SBO, Hx Appendectomy, Hx Bowel Surgery, Hx Cholecystectomy, Hx Gynecologic Surgery - hysterectomy, Hx Hysterectomy, Hx Orthopedic Surgery - Right hand, Hx Tonsillectomy, Other - Partial colectomy, Exploratory laparoscopy with lysis of adhesions 3 - Immunizations Hx Diphtheria, Pertussis, Tetanus Vaccination: Yes
[2016-08-08] MEDS ORDERED: ONDANSETRON 4 MG TAB.RAPDIS PO ONE (00:24)
[2016-08-08] MEDS ORDERED: ONDANSETRON HCL INJ/PF 4 MG/2 ML SDV IV ONE (00:25)
[2016-08-08] MEDS ORDERED: MORPHINE SULFATE 10 MG/ML INJ IV ONE ×3 (00:25→10:32)
[2016-08-08 01:10] LABS: APPEARANCE,URINE CLEAR; BILIRUBIN,URINE NEGATIVE (NEGATIVE); GLUCOSE, URINE NEGATIVE (NEGATIVE); KETONES,URINE NEGATIVE (NEGATIVE); LEUKOCYTE ESTERASE,URINE NEGATIVE (NEGATIVE); NITRITE,URINE NEGATIVE (NEGATIVE); PROTEIN,URINE NEGATIVE (NEGATIVE); URINE SPECIFIC GRAVITY 1.013; UROBILINOGEN,URINE NEGATIVE mg/dL (<2.0)
--- NOTE | 2016-08-08 02:30 | ER Document Report ---
ED General - General Mode of Arrival: Wheelchair TRAVEL OUTSIDE OF THE [place] IN LAST 30 DAYS: No <RONY GARCIA - Last Filed: 08/08/16 07:54> <TANIA NUNEZ - Last Filed: 08/08/16 09:09> - General Chief Complaint: Abdominal Pain Stated Complaint: ABDOMINAL PAIN Notes: Patient is a 76-year-old female presents for complaint of abdominal pain and vomiting. She's vomiting bilious emesis. She has a history of recurrent bowel obstructions says this feels exactly like her previous bowel obstructions. Last time she had surgery for bowel obstruction was seen 2010. Last bowel obstruction was 1-2 months ago. It was resolved with an NG tube at that time. No fevers. No infection. Last bowel movement was 24 hours ago. No blood in the stool. (RONY GARCIA) - Related Data Allergies/Adverse Reactions: ciprofloxacin [From Cipro] Allergy (Verified 07/25/16 13:14) Hives Past Medical History - General Information source: Patient - Social History Smoking Status: Never Smoker Chew tobacco use (# tins/day): No Frequency of alcohol use: None Drug Abuse: None Family History: CAD, COPD, Hyperlipidemia, Malignancy - 10 siblings, multiple cancers. "Female" cancer, stomach cancer, breast cancer, bladder cancer, prostate cancer, non-Hodgkin's lymphoma, lung cancer, leukemia. Patient has suicidal ideation: No Patient has homicidal ideation: No - Past Medical History Cardiac Medical History: Reports: Hx Hypercholesterolemia, Hx Heart Murmur Denies: Hx Heart Attack, Hx Hypertension Comment Only: Hx Congestive Heart Failure - She is being tested to see if she has this Pulmonary Medical History: Reports: Hx Asthma, Hx Bronchitis, Hx COPD, Hx Pneumonia Denies: Hx Tuberculosis Neurological Medical History: Denies: Hx Seizures Endocrine Medical History: Reports: Hx Diabetes Mellitus Type 2 - When necessary insulin for steroid induced hypoglycemia. Renal/ Medical History: Denies: Hx Peritoneal Dialysis GI Medical History: Reports: Hx Diverticulitis, Hx Gastroesophageal Reflux Disease, Hx Hiatal Hernia, Hx Irritable Bowel, Hx Ulcer. Denies: Hx Cirrhosis, Hx Hepatitis Musculoskeltal Medical History: Reports Hx Arthritis Psychiatric Medical History: Reports: Hx Depression - Some appropriate transient depression after her son 2 years ago. Denies: Hx Anxiety - Patient denies history of anxiety Infectious Medical History: Denies: Hx Hepatitis Past Surgical History: Reports: Hx Abdominal Surgery - 3 ex-laops with lysis of adhesions for SBO, Hx Appendectomy, Hx Bowel Surgery, Hx Cholecystectomy, Hx Gynecologic Surgery - hysterectomy, Hx Hysterectomy, Hx Orthopedic Surgery - Right hand, Hx Tonsillectomy, Other - Partial colectomy, Exploratory laparoscopy with lysis of adhesions 3 - Immunizations Hx Diphtheria, Pertussis, Tetanus Vaccination: Yes Hx Pneumococcal Vaccination: 06/08/08 <RONY GARCIA - Last Filed: 08/08/16 07:54> Review of Systems <RONY GARCIA - Last Filed: 08/08/16 07:54> <TANIA NUNEZ - Last Filed: 08/08/16 09:09> - Review of Systems Notes: My Normal Review Basic REVIEW OF SYSTEMS: CONSTITUTIONAL : Denies fever, chills, or sweats. Denies recent illness. EENT: Denies eye, ear, throat, or mouth pain or symptoms. Denies nasal or sinus congestion. RESPIRATORY: Denies cough, cold, or chest congestion. Denies shortness of breath, difficulty breathing, or wheezing. GASTROINTESTINAL: Has abdominal pain. Has vomiting. Denies constipation. Last BM: GENITOURINARY: Denies difficulty urinating, painful urination, burning, frequency, or blood in urine.P: MUSCULOSKELETAL: Denies neck or back pain or joint pain or swelling. SKIN: Denies rash or skin lesions. NEUROLOGICAL: Denies altered mental status or loss of consciousness. Denies headache. Denies weakness or paralysis or loss of use of either side. Denies problems with gait or speech. Denies sensory or motor loss. ALL OTHER SYSTEMS REVIEWED AND NEGATIVE. (RONY GARCIA) Physical Exam <RONY GARCIA - Last Filed: 08/08/16 07:54> <TANIA NUNEZ - Last Filed: 08/08/16 09:09> - Vital signs Vitals: Temp Pulse Resp BP Pulse Ox 97.7 F 94 18 156/70 H 96 08/08/16 00:18 08/08/16 00:18 08/08/16 00:18 08/08/16 00:18 08/08/16 00:18 - Notes Notes: General Appearance: Well nourished, alert, cooperative, no acute distress, moderate obvious discomfort. Vitals: reviewed, See vital signs table. Head: no swelling or tenderness to the head Eyes: PERRL, EOMI, Conjuctiva clear Mouth: No decreasd moisture Neck: Supple, no neck tenderness, No thyromegaly Lungs: No wheezing, No rales, No rhonci, No accessory muscle use, good air exchange bilaterally. Heart: Normal rate, Regular rythm, No murmur, no rub Abdomen: Normal BS, soft, No rigidity, diffuse abdominal tenderness, abdomen is distended No guarding, no rebound, no abdominal masses, no organomegaly. Multiple surgical scars on abdomen. Extremities: strength 5/5 in all extremities, good pulses in all extremities, no swelling or tenderness in the extremities, no edema. Skin: warm, dry, appropriate color, no rash Neuro: speech clear, oriented x 3, normal affect, responds appropriately to questions. (RONY GARCIA) Course - Laboratory Result Diagrams: 08/08/16 04:00 08/08/16 04:00 <RONY GARCIA - Last Filed: 08/08/16 07:54> - Laboratory Result Diagrams: 08/08/16 04:00 08/08/16 04:00 - Diagnostic Test Radiology reviewed: Image reviewed, Reports reviewed - Consults [facility] Time consulted: 08:43 <TANIA NUNEZ - Last Filed: 08/08/16 09:09> - Re-evaluation Re-evalutation: 08/08/16 04:43 I reevaluation the patient is feeling improved with morphine. Her abdomen still distended and clinically looks consistent with bowel obstruction. I will obtain x-ray. I went for the official read. We may have to proceed with a CT scan and then place an NG tube afterwards. (RONY GARCIA) 08/08/16 08:44 Dr Brandon evaluated patient requests transfer to [facility] for further care due ot hx of chf 08/08/16 09:08 Dr Cope will accept the patient to [facility] (TANIA NUNEZ) - Vital Signs Vital signs: Temp Pulse Resp BP Pulse Ox 97.9 F 94 21 H 125/59 L 96 08/08/16 07:47 08/08/16 00:18 08/08/16 07:01 08/08/16 07:00 08/08/16 07:01 - Laboratory Laboratory results interpreted by me: 08/08/16 08/08/16 08/08/16 04:00 04:00 06:37 WBC 26.0 H Hgb 11.5 L MCH 26.1 L MCHC 31.7 L RDW 15.8 H Seg Neuts % (Manual) 79 H Lymphocytes % (Manual) 10 L Abs Neuts (Manual) 20.5 H Abs Monocytes (Manual) 2.9 H BUN 26 H Est GFR (Non-Af Amer) 52 L Lactic Acid 2.2 H Calcium 11.2 H Alkaline Phosphatase 129 H - EKG Interpretation by Me Additional EKG results interpreted by me: 08/08/16 02:33 EKG is reviewed and interpreted by me. EKG shows normal sinus rhythm with rate of [address] segment elevation or depression. No ischemic T wave inversions. IN interval and QRS duration QTC intervals are within normal range. Old EKG for comparison is from 02/22/2017. (RONY GARCIA) - Consults [facility] Reason for consultation: 08/08/16 08:43 [facility] paged (TANIA NUNEZ) - Transfer of Care Notes: 08/08/16 07:[address] scan again does not show evidence of bowel obstruction; however, patient clinically and historically appears consistent with bowel obstruction. She has a distended abdomen that is tender, she's had bilious vomiting, she says this feels exactly like her previous bowel obstructions. She has a leukocytosis 26,000. She has no other source of fever. Clinically she actually looks okay with exception of the distended abdomen. I did call and speak with the surgeon, Dr. Brandon, who agrees with plan to place the NG tube and he will come down to evaluate the patient. Dictation of this chart was performed using voice recognition software; therefore, there may be some unintended grammatical errors. (RONY GARCIA) Discharge <RONY GARCIA - Last Filed: 08/08/16 07:54> <TANIA NUNEZ - Last Filed: 08/08/16 09:09> - Discharge Clinical Impression: Small bowel obstruction Leukocytosis Qualifiers: Leukocytosis type: unspecified Qualified Code(s): D72.829 - Elevated white blood cell count, unspecified Congestive heart failure Qualifiers: Congestive heart failure type: unspecified congestive heart failure type Congestive heart failure chronicity: acute on chronic Qualified Code(s): I50.9 - Heart failure, unspecified Condition: Serious Disposition: [facility]
[2016-08-08 04:56] LABS: HEMATOCRIT 36.4 % (36.0-47.0); HEMOGLOBIN 11.5 g/dL (12.0-15.5); HGB HCT DIFFERENCE -1.9; MEAN CORPUSCULAR HEMOGLOBIN 26.1 pg (27.0-33.4); MEAN CORPUSCULAR HGB CONC 31.7 g/dL (32.0-36.0); MEAN CORPUSCULAR VOLUME 82 fl (80-97); RED BLOOD COUNT 4.42 10^6/uL (3.72-5.28); RED CELL DISTRIBUTION WIDTH 15.8 % (11.5-14.0)
[2016-08-08 05:06] LABS: ALANINE AMINOTRANSFERASE 46 U/L (9-52); ALBUMIN 4.1 g/dL (3.5-5.0); ALKALINE PHOSPHATASE 129 U/L (38-126); ANION GAP 14 (5-19); ASPARTATE AMINO TRANSFERASE 22 U/L (14-36); BILIRUBIN,TOTAL 0.8 mg/dL (0.2-1.3); BLOOD UREA NITROGEN 26 mg/dL (7-20); CALCIUM 11.2 mg/dL (8.4-10.2); CARBON DIOXIDE 27 mmol/L (22-30); CHLORIDE 100 mmol/L (98-107); CREATININE RESULT 1.03 mg/dL (0.52-1.25); GLUCOSE 106 mg/dL (75-110); LIPASE 34.7 U/L (23-300); POTASSIUM 3.8 mmol/L (3.6-5.0); SODIUM 141.1 mmol/L (137-145); TOTAL PROTEIN 7.1 g/dL (6.3-8.2)
[2016-08-08] MEDS ORDERED: NORMAL SALINE 1000 ML 500 ML IV ONE (05:21)
[2016-08-08 05:27] LABS: BASOPHILS % (MANUAL) 0 % (0-2); EOSINOPHILS % (MANUAL) 0 % (0-6); LYMPHOCYTES % (MANUAL) 10 % (13-45); TOTAL CELLS COUNTED 100
[2016-08-08 05:28] LABS: ANISOCYTOSIS 1+; HYPOCHROMASIA SLIGHT; OVALOCYTES SLIGHT; POIKILOCYTOSIS SLIGHT; TOXIC GRANULATION SLIGHT
--- NOTE | 2016-08-08 09:26 | EKG REPORT ---
SEVERITY:- ABNORMAL ECG - SINUS RHYTHM LEFT ANTERIOR FASCICULAR BLOCK LEFT VENTRICULAR HYPERTROPHY : Confirmed by: Yanick Robins MD 08-Aug-2016 09:25:42
[2016-08-08] MEDS ORDERED: NORMAL SALINE 1000 ML 1,000 ML IV ONE (10:25)
[2016-08-08 13:02] VITALS: BP 104/63
== END 2016-08-08 12:25 | disposition short-term general hospital (02) ==
LOC: ER 00:11
DX: K56.60 Unspecified intestinal obstruction (principal); R14.0 Abdominal distension (gaseous); R11.14 Bilious vomiting; E78.00 Pure hypercholesterolemia, unspecified; E11.9 Type 2 diabetes mellitus without complications; Z88.3 Allergy status to other anti-infective agents; Z90.49 Acquired absence of other specified parts of digestive tract; Z90.710 Acquired absence of both cervix and uterus
CPT/HCPCS: 93005; 96376; 99285; 96374; 96375; 36415; 83605; 83690; 85025; 80053; 81001; 74022; 74000; 74177; 93010; J2270; J2405; J7030

== ENCOUNTER → 2016-11-11 | Outpatient (CLI) | payer MEDICARE ==
--- NOTE | 2016-11-11 12:46 | RADIOLOGY REPORT (SQ) ---
EXAM DESCRIPTION: CHEST PA/LAT COMPLETED DATE/TIME: 11/11/2016 12:33 pm REASON FOR STUDY: COPD W/ ACUTE LOWER RESPIRATORY INFECTION COMPARISON: July 2016 EXAM PARAMETERS: NUMBER OF VIEWS: two views TECHNIQUE: Digital Frontal and Lateral radiographic views of the chest acquired. RADIATION DOSE: NA LIMITATIONS: none FINDINGS: LUNGS AND PLEURA: No opacities, masses or pneumothorax. No pleural effusion. Mild chronic appearing changes appears stable. I cannot exclude a component of obstructive lung disease. The pr eviously described multifocal pneumonia has resolved. MEDIASTINUM AND HILAR STRUCTURES: No masses or contour abnormalities. HEART AND VASCULAR STRUCTURES: Heart normal size. No evidence for failure. BONES: No acute findings. HARDWARE: None in the chest. OTHER: No other significant finding. IMPRESSION: No acute findings. Chronic appearing changes are again identified. Other findings as n oted above TECHNICAL DOCUMENTATION: JOB ID: [id number] [employer]- All Rights Reserved
[2016-11-11 13:05] LABS: ABSOLUTE LYMPHOCYTES (AUTO) 0.5 10^3/uL (0.5-4.7); ABSOLUTE MONOCYTES (AUTO) 0.7 10^3/uL (0.1-1.4); ABSOLUTE NEUT (AUTO) 6.7 10^3/uL (1.7-8.2); BASOPHILS % (AUTO) 0.2 % (0-2); EOSINOPHILS % (AUTO) 0.4 % (0-6); HEMATOCRIT 33.8 % (36.0-47.0); HEMOGLOBIN 10.8 g/dL (12.0-15.5); HGB HCT DIFFERENCE -1.4; MEAN CORPUSCULAR HEMOGLOBIN 25.5 pg (27.0-33.4); MEAN CORPUSCULAR VOLUME 80 fl (80-97); MONOCYTES % (AUTO) 8.6 % (3-13); RED BLOOD COUNT 4.24 10^6/uL (3.72-5.28); SEGMENTED NEUTROPHILS % (AUTO) 84.8 % (42-78); WHITE BLOOD COUNT 7.9 10^3/uL (4.0-10.5)
[2016-11-11 13:25] LABS: ALANINE AMINOTRANSFERASE 23 U/L (9-52); ALBUMIN 4.1 g/dL (3.5-5.0); ALKALINE PHOSPHATASE 150 U/L (38-126); ANION GAP 12 (5-19); ASPARTATE AMINO TRANSFERASE 17 U/L (14-36); BILIRUBIN,DIRECT 0.3 mg/dL (0.0-0.4); BILIRUBIN,TOTAL 0.5 mg/dL (0.2-1.3); BLOOD UREA NITROGEN 12 mg/dL (7-20); CALCIUM 10.4 mg/dL (8.4-10.2); CARBON DIOXIDE 22 mmol/L (22-30); CHLORIDE 106 mmol/L (98-107); CREATININE RESULT 0.74 mg/dL (0.52-1.25); GLUCOSE 111 mg/dL (75-110); SODIUM 139.9 mmol/L (137-145); TOTAL PROTEIN 7.6 g/dL (6.3-8.2)
== END ==
LOC: RAD 12:11
PROVIDERS: ATTEND Nurse Practitioner Family
DX: I50.9 Heart failure, unspecified (principal); J44.0 Chronic obstructive pulmonary disease with (acute) lower respiratory infection
CPT/HCPCS: 36415; 71020; 80053; 85025

== ENCOUNTER → 2016-12-13 | Outpatient (CLI) | payer MEDICARE | LOC: MERGE 17:04 → LAB 17:04 | PROVIDERS: ATTEND Emergency Medicine | DX: N39.0 Urinary tract infection, site not specified (principal) | CPT/HCPCS: 87086; 87088; 87186 ==

== ENCOUNTER → 2017-02-02 | Outpatient (CLI) | payer MEDICARE ==
--- NOTE | 2017-02-02 16:13 | RADIOLOGY REPORT (SQ) ---
EXAM DESCRIPTION: CHEST PA/LATERAL COMPLETED DATE/TIME: 02/02/2017 3:36 pm REASON FOR STUDY: CHRONIC OBSTRUCTIVE PULMON DISEASE W ACUTE LOWER RESP INFCT COMPARISON: 11/11/2016 EXAM PARAMETERS: NUMBER OF VIEWS: two views TECHNIQUE: Digital Frontal and Lateral radiographic views of the chest acquired. RADIATION DOSE: NA LIMITATIONS: none FINDINGS: LUNGS AND PLEURA: Chronic interstitial changes. No evidence of pneumonia. No pleural effu jill. MEDIASTINUM AND HILAR STRUCTURES: No masses or contour abnormalities. HEART AND VASCULAR STRUCTURES: Heart normal size. No evidence for failure. BONES: No acute findings. HARDWARE: None in the chest. OTHER: No other significant finding. IMPRESSION: No acute abnormality in the chest. TECHNICAL DOCUMENTATION: JOB ID: [id number] [employer]- All Rights Reserved
== END ==
LOC: OD 14:36
PROVIDERS: ATTEND Family Medicine
DX: J44.0 Chronic obstructive pulmonary disease with (acute) lower respiratory infection (principal)
CPT/HCPCS: 71020

== ENCOUNTER → 2017-02-10 | Outpatient (CLI) | payer MEDICARE ==
--- NOTE | 2017-02-10 16:33 | RADIOLOGY REPORT (SQ) ---
EXAM DESCRIPTION: CT ABD/PELVIS WITH IV ORAL COMPLETED DATE/TIME: 02/10/2017 3:29 pm REASON FOR STUDY: ABD PAIN (R10.9) R10.9 UNSPECIFIED ABDOMINAL PAIN COMPARISON: 06/19/2016 TECHNIQUE: CT scan of the abdomen and pelvis performed using helical scanning technique with dynamic intravenous contrast injection. Oral contrast. Images reviewed with lung, soft tissue, and bone win dows. Reconstructed coronal and sagittal MPR images reviewed. Delayed images for evaluation of the ur inary system also acquired. All images stored on PACS. All CT scanners at this facility use dose modulation, iterative reconstruction, and/or weight based d osing when appropriate to reduce radiation dose to as low as reasonably achievable (ALARA). [facility]: Dose Right [facility]: CareDose [facility]: Dose Right [facility]: Teradose 4D [facility]: [email or web address] CONTRAST TYPE AND DOSE: contrast/concentration: Isovue 370.00 mg/ml; Total Contrast Delivered: 70.0 ml; Total Saline Delivered: 66.0 ml RENAL FUNCTION: Creatinine 0.8 RADIATION DOSE: Up-to-date CT equipment and radiation dose reduction techniques were employed. CTDIv ol: 6.0 - 6.9 mGy. DLP: 615 mGy-cm.. LIMITATIONS: None. FINDINGS: LOWER CHEST: No significant findings. No nodules or infiltrates. LIVER: Normal size. No masses. No dilated ducts. SPLEEN: Normal size. No focal lesions. PANCREAS: No masses. No significant calcifications. No adjacent inflammation or peripancreatic fluid collections. Pancreatic duct not dilated. GALLBLADDER: No identified stones by CT criteria. No inflammatory changes to suggest cholecystitis. ADRENAL GLANDS: No significant masses or asymmetry. RIGHT KIDNEY AND URETER: No solid masses. No significant calcifications. No hydronephrosis or hyd roureter. LEFT KIDNEY AND URETER: No solid masses. No significant calcifications. No hydronephrosis or hydr oureter. AORTA AND VESSELS: No aneurysm. No dissection. Atherosclerosis. Atherosclerotic plaques are presen t at the origins of the celiac, SMA, and renal arteries. RETROPERITONEUM: No retroperitoneal adenopathy, hemorrhage or masses. BOWEL AND PERITONEAL CAVITY: No masses or inflammatory changes. No free fluid or peritoneal masses. Considerable stool is present in the right colon and transverse colon predominantly. APPENDIX: Not identified. PELVIS: The urinary bladder is normal. The uterus is absent. There is no adnexal mass or fluid ramon ection. ABDOMINAL WALL: No masses. No hernias. BONES: No significant or acute findings. OTHER: No other significant finding. IMPRESSION: 1. No significant or acute finding in the abdomen pelvis. Findings as described. 2. There is considerable stool in the right colon and transverse colon suggestive of constipation. TECHNICAL DOCUMENTATION: JOB ID: [id number] Quality ID # [id number]: Final reports with documentation of one or more dose reduction techniques (e.g., Au tomated exposure control, adjustment of the mA and/or kV according to patient size, use of iterative reconstruction technique) 2010 [employer] All Rights Reserved
== END ==
LOC: RAD 13:49
PROVIDERS: ATTEND Surgery
DX: R10.9 Unspecified abdominal pain (principal)
CPT/HCPCS: 74177; 82565